=== PATIENT | female | born 1950 | race Caucasian/White ===

== ENCOUNTER 2025-06-05 19:36 | Inpatient (IN) | payer MEDICARE, SELFPAY ==
--- OUTSIDE RECORDS SUMMARY | 2025-06-04 12:34 | XMS_ITS | Encounter Summary ---
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 [facility] MCHC 32.9 29.5 - 34.2 g/dL 06/04/2025 1:59 PM EDT [facility] RDW 14.3 11.8 - 14.4 % 06/04/2025 1:59 PM EDT [facility] Platelets 333 168 - 382 [id number]/L 06/04/2025 1:59 PM EDT [facility] MPV 10.0 9.6 - 12.5 fL 06/04/2025 1:59 PM EDT [facility] NRBC % 0.0 -1.0 - 0.0 % 06/04/2025 1:59 PM EDT [facility] NRBC (absolute) 0.0 [id number]/L 1:59 PM EDT [facility] Immature Granulocytes % 0.2 % 06/04/2025 1:59 PM EDT [facility] Immature Granulocytes (absolute) 0.0 0.0 - 0.1 [id number]/L 06/04/2025 1:59 PM EDT [facility] Seg Neutrophil % 60.7 % 06/04/20 1:59 PM EDT [facility] Seg Neutrophil (absolute) 3.4 1.9 - 6.7 [id number]/L 06/04/2025 1:59 PM EDT [facility] Lymphocyte % 30.2 % 06/04/2025 1:59 PM EDT [facility] Lymphocyte (absolute) 1.7 1.0 - 3.3 [id number]/L 06/04/2025 1:59 PM EDT [facility] Monocyte % 7.5 % 06/04/2025 1:59 PM EDT [facility] Monocyte (absolute) 0.4 0.3 - 0.9 [id number]/L 06/04/2025 1:59 PM EDT [facility] Eosinophil % 0.9 % 06/04/2025 1:59 PM EDT [facility] Eosinophil (absolute) 0.1 0.0 - 0.4 [id number]/L 06/04/2025 1:59 PM EDT [facility] Basophil % 0.5 % 06/04/2025 1:59 PM EDT [facility] Basophil (absolute) 0.0 0.0 - 0.1 [id number]/L 06/04/2025 1:59 PM EDT [facility] 06/04/2025 1:50 PM EDT 06/04/2025 1:56 PM EDT Libby PÉREZ LAB BLOOD ORDERABLES Final R esult [facility] [address] [place] [id number], [facility] [address] [place] [id number] documented in this encounter Visit Diagnoses Diagnosis Suicidal ideation- Primary documented in this encounter Administered Medications Active Administered Medications - up to 3 most recent administrations Medication Order MAR Action Action Date Dose Rate Site polyethylene glycol (MIRALAX) packet 17 g 17 g (1 packet), Oral, Once Daily, First dose on 06/05/25 at 0800, Until Discontinued, Occasional constipation: Stir powder in 4-8 ounces of water, juice, soda, coffee, or tea until dissolved and drink. Given 06/05/2025 7:49 AM EDT 17 g psyllium packet 1 packet 1 packet, Oral, 3 times daily, First dose on Sat06/04/25 at 1600, Until Discontinued, Drink at least 8 oz of water with each dose. Given 06/05/2025 3:14 PM EDT 1 packet Given 06/05/2025 7:49 AM EDT 1 packet Inactive Administered Medications - up to 3 most recent administrations Medication Order MAR Action Action Date Dose Rate Site ibuprofen (MOTRIN) tablet 600 mg 600 mg, Oral, Once, On 06/05/25 at 0045, 1 dose, If ordered PRN for pain control, patient may request to receive this medication even if experiencing higher pain levels. Yes Given 06/05/2025 12:51 AM EDT 600 mg ibuprofen (MOTRIN) tablet 600 mg 600 mg, Oral, Once, On 06/05/25 at 1100, 1 dose, If ordered PRN for pain control, patient may request to receive this medication even if experiencing higher pain levels. Yes Given 06/05/2025 11:06 AM EDT 600 mg LORazepam (ATIVAN) tablet 0.5 mg 0.5 mg, Oral, Once, On Sat06/04/25 at 1330, 1 dose Given 06/04/2025 1:24 PM EDT 0.5 mg LORazepam (ATIVAN) tablet 1 mg 1 mg, Oral, Once, On 06/05/25 at 1100, 1 dose Given 06/05/2025 11:06 AM EDT 1 mg LORazepam (ATIVAN) tablet 1 mg 1 mg, Oral, Once, On 06/05/25 at 1600, 1 dose Given 06/05/2025 4:10 PM EDT 1 mg pantoprazole (PROTONIX) DR tablet 40 mg 40 mg, Oral, Once, On Sat06/04/25 at 1345, 1 dose, Do not crush/split/chew tablet. Given 06/04/2025 2:06 PM EDT 40 mg documented in this encounter Active and Recently Administered Medications Times are shown in EDT. Scheduled Medication Order 06/03/2025 06/04/2025 06/05/2025 ibuprofen (MOTRIN) tablet 600 mg (COMPLETED) 600 mg, Oral, Once, On 06/05/25 at 0045, 1 dose, If ordered PRN for pain control, patient may request to receive this medication even if experiencing higher pain levels. Yes 0051 (Given - Provid er: Mike Christensen RN) ibuprofen (MOTRIN) tablet 600 mg (COMPLETED) 600 mg, Oral, Once, On 06/05/25 at 1100, 1 dose, If ordered PRN for pain control, patient may request to receive this medication even if experiencing higher pain levels. Yes 1106 (Given - Provid er: Tony Ferreira RN) LORazepam (ATIVAN) tablet 0.5 mg (COMPLETED) 0.5 mg, Oral, Once, On Sat06/04/25 at 1330, 1 dose 1324 (Given - Provider: Belkis Olguin RN) LORazepam (ATIVAN) tablet 1 mg (COMPLETED) 1 mg, Oral, Once, On 06/05/25 at 1100, 1 dose 1106 (Given - Provid er: Tony Ferreira RN) LORazepam (ATIVAN) tablet 1 mg (COMPLETED) 1 mg, Oral, Once, On Sat06/05/25 at 1600, 1 dose 1610 (Given - Provid er: Tony Ferreira RN) pantoprazole (PROTONIX) DR tablet 40 mg (COMPLETED) 40 mg, Oral, Once, On Sat06/04/25 at 1345, 1 dose, Do not crush/split/chew tablet. 1406 (Given - Provider: Belkis Olguin RN) polyethylene glycol (MIRALAX) packet 17 g 17 g (1 packet), Oral, Once Daily, First dose on Sat06/05/25 at 0800, Until Discontinued, Occasional constipation: Stir powder in 4-8 ounces of water, juice, soda, coffee, or tea until dissolved and drink. 0749 (Given - Provid er: Tony Ferreira RN) psyllium packet 1 packet 1 packet, Oral, 3 times daily, First dose on Sat06/04/25 at 1600, Until Discontinued, Drink at least 8 oz of water with each dose. 1732 (Not Given - Provider: Alex Lema RN - Reason: Patient/family refused)2100 (Not Given - Provider: Alex Lema RN - Reason: Contraindicated) 0749 (Given - Provider: Tony Ferreira RN)1514 (Given - Provider: Tony Ferreira RN)2200 (Due) documented in this encounter Care Teams [employer] Asset Manager Relationship Specialty Start Date End Date Ammon Villagomez MD [address] [place] [phone] PCP - General Internal Medicine 06/04/25 documented as of this encounter
--- OUTSIDE RECORDS SUMMARY | 2025-06-05 19:45 | XMS_ITS | Clinical Summary ---
Author Organization [facility] Address [address] [place] [address] Care Team Providers Care Advanced Manufacturing Technician Name Role Phone Shania Reyes MD Unavailable Gely Greene MD Primary Care Provider [phone] Allergies Active Allergy Reactions Criticality Noted Date Comments Varenicline Altered Mental Status 02/22/2016 Pregabalin GI Intolerance,Alter ed Mental Status 01/25/2016 Oxycodone-Acetaminophe n GI Intolerance 01/25/2016 DID NOT RELIVE PAIN LIGHTHEADED Medications Multiple Vitamin (MULTIVITAMIN) capsule Take 1 capsule by mouth daily Active calcium carbonate 200 MG capsule Take 250 mg by mouth 2 (two) times a day with meals. Active cholecalciferol (VITAMIN D3) 1000 UNITS tablet Take 1 tablet (1,000 Units total) by mouth daily Active hydrocortisone (CORTEF) 10 MG tablet Take 1 tablet (10 mg total) by mouth daily. 45 tablet 0 6 Active venlafaxine (EFFEXOR-XR) 150 MG extended release capsule Take 1 capsule (150 mg total) by mouth daily 8 Active aspirin 81 MG EC tablet TAKE 1 TABLET EVERY DAY 2 8 Active calcium carbonate-vitam in D3 (CALCIUM 600+D3) 600-400 MG-UNIT tablet Take by mouth daily Active acetaminophen (TYLENOL) 500 MG tablet Take 2 tablets (1,000 mg total) by mouth every 4 (four) hours as needed for mild pain (1-3) or fever Active albuterol sulfate (VENTOLIN HFA) 108 (90 Base) MCG/ACT inhalation aerosol Inhale 1-2 puffs every 6 (six) hours as needed for wheezing or shortness of breath 1 Inhaler 0 Active albuterol sulfate (PROAIR HFA) 108 (90 Base) MCG/ACT inhalation aerosol Inhale 1 puff every 4 (four) hours as needed for wheezing or shortness of breath Active Active Problems Problem Noted Date Diagnosed Date Panic attack 08/28/2023 Fever, unknown origin 11/29/2020 Right leg pain 11/29/2020 Weight gain 03/04/2020 Atypical nevus 09/30/2019 Screening for colon cancer 02/25/2019 History of lymphocytosis 09/21/2018 Chest pain 05/10/2016 Instability of knee joint, right 03/13/2016 Resolved Problems Problem Noted Date Diagnosed Date Resolved Date 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 Encounters Date Type Department Care Team Description 03/09/2025 8:52 AM EDT Anesthesia Event [address] [phone] Sushant Norwood MD 03/09/2025 8:04 AM EDT - 03/09/2025 11:59 PM EDT Hospital Encounter [address] [address] Pravin Giles MD Burgess, Kevin S, CRNA D'Souza, Stanlies M, MD History of colonic polyps Discharge Disposition: Home or Self Care 03/09/2025 Travel 10/29/2024 Procedure Pass [address] [phone] from Last 3 Months Family History Medical History Relation Name Comments Arthritis Mother Asthma Mother Diabetes Mother Heart disease Mother Hypertension Mother Relation Name Status Comments Father Mother Alive Sister Alive Social History Tobacco Use Types Packs/Day Years Used Date Smoking Tobacco: Former Cigarettes Smokeless Tobacco: Never Tobacco Cessation:Counseling Given: Not Answered Alcohol Use Standard Drinks/Week Comments No 0 (1 standard drink = 0.6 oz pur e alcohol) Comments No Sex and Gender Information Value Date Recorded Sex Assigned at Female 05/04/2024 2:59 PM EDT Legal Sex Female 6:38 PM EDT Gender Identity Female 05/04/2024 2:59 PM EDT Sexual Orientation Straight 05/04/2024 2: 59 PM EDT Last Filed Vital Signs Vital Sign Reading Time Taken Comments Blood Pressure 116/73 03/09/2025 9:45 AM EDT Pulse 70 03/09/2025 9:45 AM EDT Temperature 36.5 C (97.7 F) 03/09/2025 8:28 AM EDT Respiratory Rate 18 03/09/2025 9:45 AM EDT Oxygen Saturation 97% 03/09/2025 9:45 AM EDT Inhaled Oxygen Concentration - - Weight 84.4 kg (186 lb) 05/04/2024 4:23 PM EDT Height 160 cm (5' 3 ) 05/04/2024 4:23 PM EDT Body Mass Index 32.95 05/04/2024 4:23 PM EDT Plan of Treatment Health Maintenance Due Date Last Done Comments Annual Physical 1954 DTaP,Tdap,and Td Vaccines (1 - Tdap) 1970 Pneumococcal Vaccines 50+ yrs (1 of 2 - PCV) 1970 CT Colonography 1996 FOBT 1996 Sigmoidoscopy 1996 Zoster Standard Vaccine (1 of 2) 2001 RSV Immunization Patients 60+ years or (1 - Risk 60-74 years 1-dose series) 2011 Bone Density Scan 2016 Breast Cancer Screening 03/11/2020 03/11/2019 COVID-19 Vaccine (1 - season) 2025 Influenza Vaccine (#1) 2025 7, 05/11/2016, 05/27/2015 FIT-DNA 10/16/2027 10/15/2024, 10/15/2024 Cholesterol Screening 10/28/2029 10/28/2024 , 09/06/2023, 03/20/2022, Additional history exists Colorectal Cancer Screening by Colonoscopy 03/08/2030 03/09/2025, 03/17/2019 Colonoscopy 03/09/2030 03/09/2025, 080 12/2024, 03/17/2019 Colorectal Cancer Screening 03/09/2030 Hepatitis C Screening Completed 12/06/2020 HIB Vaccines Aged Out No longer eligi ble based on patient's age to complete this topic Hepatitis A Vaccine Aged Out No longe r eligible based on patient's age to complete this topic Medical Devices Implanted Type Area Commercial Real Estate Lender Device Identifier Shelf Expiration Date Model / Serial / Lot Cement Bone Simplex P - [id number] Implanted:Qty: 2 on 03/13/2016 by Aric Akins MD at [facility] Right: Knee [employer] 07/04/2018 [id number] / / [id number] Cone Tibial Tri 36 31 25 - [id number] Implanted:Qty: 1 on 03/13/2016 by Aric Akins MD at [facility] Right: Knee [employer] 12/03/2018 [id number] / / [id number] Cone Femoral Small Rt 30mm - [id number] Implanted:Qty: 1 on 03/13/2016 by Aric Akins MD at [facility] Right: Knee [employer] 04/04/2020 [id number] / / [id number] Mod Tibial Tray Neutral Sz 3 - [id number] Implanted:Qty: 1 on 03/13/2016 by Aric Akins MD at [facility] Right: Knee [employer] 08/05/2019 [id number] / / [id number] 12 X 80mm Stem Ext Fluted - [id number] Implanted:Qty: 1 on 03/13/2016 by Aric Akins MD at [facility] Right: Knee [employer] 11/03/2019 [id number] / / [id number] Junction Box 5 Deg - [id number] Implanted:Qty: 1 on 03/13/2016 by Aric Akins MD at [facility] Right: Knee [employer] 08/25/2022 [id number] / / [id number] Femoral Component Rt Sz 4 - [id number] - [id number] Implanted:Qty: 1 on 03/13/2016 by Aric Akins MD at [facility] Right: Knee [employer] 05/27/2020 [id number] / / [id number] Extension Stem Flut 14x 80mm - [id number] Implanted:Qty: 1 on 03/13/2016 by Aric Akins MD at [facility] Right: Knee [employer] 06/04/2018 [id number] / / [id number] Insert Ck Tibial Size 3 12mm - [id number] Implanted:Qty: 1 on 03/13/2016 by Aric Akins MD at [facility] Right: Knee [employer] 10/02/2016 [id number] / / [id number] Procedures Procedure Name Priority Date/Time Associated Diagnosis Comments COLONOSCOPY Routine 03/09/2025 9:18 AM EDT History of colonic polyps SURGICAL PATHOLOGY EXAM Routine 03/09/2025 9:13 AM EDT History of colonic polyps LIPID PANEL Routine 10/28/2024 11:06 AM EDT Diabetes mellitus, latent Hyperlipidemia, unspecified hyperlipidemia type 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 Images from the original result were not included. Colonoscopy Report [facility] [employer] [facility] Proceduralist Pravin Giles MD Patient Name: Britt Caldera Date of : 1950 PCP Gely Greene MD Date of Procedure: 03/09/2025 Pre-op Diagnosis History of colonic polyps Post-op Diagnosis Colon polyps Indication This 74 y/o F has History of colonic polyps in 2019. Preprocedure A history and physical has been performed, and patient medication allergies have been reviewed. The patient's tolerance of previous anesthesia has been reviewed. The risks and benefits of the procedure and the sedation options and risks were discussed with the patient. All questions were answered and informed consent obtained. Details of the Procedure The patient underwent monitored anesthesia care, which was administered by an anesthesia professional. The patient's blood pressure, heart rate, level of consciousness, oxygen saturation, respirations, ECG and ETCO2 were monitored throughout the procedure. A digital rectal exam was performed. The scope was introduced through the anus and advanced to the cecum. Retroflexion was performed in the rectum. The quality of bowel preparation was evaluated using the [place] Bowel Preparation Scale with scores of: right colon = 3, transverse colon = 3, left colon = 3. The total BBPS score was 9. Bowel prep was adequate. The patient experienced no blood loss. The procedure was not difficult. The patient tolerated the procedure well. There were no apparent adverse events. Findings Polyp measuring smaller than 5 mm in the mid ascending colon; performed cold forceps biopsy with complete en bloc removal Polyp measuring 5-9 mm in the mid rectum; performed cold snare with complete en bloc removal and retrieved specimen All observed locations appeared normal, including the cecum, hepatic flexure, transverse colon, splenic flexure, descending colon, sigmoid colon, rectosigmoid and rectum. Specimens ID Type Source Tests Collected by Time A : COLD FORCEP BX ASCENDING POLYPECTOMY Tissue Large Intestine, Right/Ascending Colon SURGICAL PATHOLOGY EXAM Pravin Giles MD 03/09/2025 0913 B : COLD SNARE RECTUM POLYPECTOMY Tissue Rectum SURGICAL PATHOLOGY EXAM Pravin Giles MD 03/09/2025 0917 Events Procedure Events Event Event Time ENDO SCOPE IN TIME 03/09/2025 9:06 AM ENDO CECUM REACHED 03/09/2025 9:09 AM ENDO SCOPE OUT TIME 03/09/2025 9:18 AM No case tracking events are documented in the log. Withdrawal time: 9m 35s Impression Polyps (2) Recommendation Repeat colonoscopy in 5 years, due: 03/08/2030 If adenomatous. Pravin Giles MD GI PROCEDURE ORDERABLES Final Result * Surgical Pathology Exam (03/09/2025 9:13 AM EDT) Case Report Surgical Pathology Case: [id number] Authorizing Provider: Pravin Giles MD Collected: 03/09/2025 0913 Ordering Location: [facility] Received: 03/09/2025 1036 - [facility] Pathologist: Kailey Kamara MD Specimens: A) - Large Intestine, Right/Ascending Colon, COLD FORCEP BX ASCENDING POLYPECTOMY B) - Rectum, COLD SNARE RECTUM POLYPECTOMY 03/11/2025 8:43 AM EDT [facility] Final Diagnosis A. ASCENDING COLON POLYPECTOMY: Tubular adenoma, multiple fragments. B. RECTUM POLYPECTOMY: Tubular adenoma, multiple fragments. 03/11/2025 8:43 AM EDT [facility] at 0843 EDT Comment CPT: 68625 x2 03/11/2025 8:43 AM EDT [facility] Reporting Location Diagnosis performed at [facility] 03/11/2025 8:43 AM EDT [facility] Intradepartmental Consultation Case reviewed by Dr. Zach Richardson, who agrees with the above diagnosis. 03/11/2025 8:43 AM EDT [facility] Gross Description A. Received in formalin labeled with the patient's name, initials MB and large intestine, A is one irregular thomas soft tissue fragment measuring 0.3 cm in greatest dimension, entirely submitted in one cassette. B. Received in formalin labeled with the patient's name, initials MB and rectum, B are 3 irregular thomas soft tissue fragments measuring 0.3 cm in greatest dimension, entirely submitted in one cassette. Note: the smallest fragments may not survive processing. Time out of formalin: 12:10 am on 03/10/2025. Gross performed at [facility]. Gross evaluation performed and dictated by: ELISA Damon (ASCP)cm. 03/11/2025 8:43 AM EDT [facility] Embedded Images 8:43 AM EDT [facility] Additional Information This report may contain complex medical terminology and you should discuss this report with the clinician who ordered this test to ensure appropriate understanding of the findings. 03/11/2025 8:43 AM EDT [facility] Tissue Ascending colon structure / Unknown 03/09/2025 9:13 AM EDT 03/09/2025 10:36 AM EDT Tissue specimen (specimen) Rectum structure / Unknown 03/09/2025 9:17 AM EDT 03/09/2025 10:36 AM EDT us Pravin Giles MD PATHOLOGY/CYTOLOGY ORDERABLES Final Result [facility] [address] [place] [id number] * Lipid panel (10/28/2024 11:06 AM EDT) Cholesterol 185 <200 mg/dL 10/28/2024 4:23 PM EDT [facility] Triglycerides 120 <150 mg/dL 10/28/2024 4:23 PM EDT [facility] HDL 69.9 >=60.0 mg/dL 10/28/2024 4:23 PM EDT [facility] LDL Calculated 91 0 - 100 mg/dL 10/28/2024 4:23 PM EDT [facility] Cardiac Risk Factor 2.6 0.0 - 4.4 10/28/2024 4:23 PM EDT [facility] Blood Venipuncture / Unknown 10/28/2024 11:06 AM EDT 10/28/2024 11:06 AM EDT Narrative [facility] - 10/28/2024 4:23 PM EDT Cardiac Risk Factor: Males Females 2x Average Risk 9.6 7.1 3x Average Risk 23.4 11.0 us Gely Greene MD LAB BLOOD ORDERABLES Final Re sult [facility] [address] [place] [address] * (ABNORMAL) Acute Hepatitis Panel (12/06/2020 10:45 AM EDT) Hep A Total Ab Reactive(A) Nonreactive 12/06/2020 7:46 PM EDT [facility] Hep B Core Total Ab Nonreactive Nonreactive 12/06/2020 7:46 PM EDT [facility] HCV Ab Nonreactive Nonreactive 12/06/2020 7:46 PM EDT [facility] Hepatitis B Surface Ag Nonreactive Nonreactive 12/06/2020 7:46 PM EDT [facility] Blood specimen (specimen) Venipuncture / Unknown 12/06/2020 10:45 AM EDT 12/06/2020 1:48 PM EDT us Cristy Evans MD LAB BLOOD ORDERABLES F inal Result [facility] [address] [place] [address] * TAMAR breast pepper screening bilateral (03/11/2019 4:54 PM EDT) Anatomical Region Laterality Modality Breast Bilateral Mammography 03/13/2019 1:02 PM EDT Impressions 03/13/2019 1:02 PM EDT IMPRESSION: No mammographic evidence of malignancy. Annual screening mammography is recommended. Breast Density: Heterogeneously dense BI-RADS description: BI-RADS 1 - Negative Recommendation: Routine Screening Mammography The patient's information was entered into a reminder system with a target due date for the next mammogram. Narrative 03/13/2019 1:02 PM EDT HISTORY: Screening Comparison: August 2016, February 2015 and October 2013 This examination was reviewed with the aid of the R2 Computer-Aided Detection. Full Field Digital Breast Tomosynthesis examination was performed with 2-D and 3-D acquisitions. The breast tissue is heterogeneously dense, reducing the sensitivity of mammography. There is no evidence of dominant mass, clustered microcalcifications or secondary signs of malignancy. Procedure Note Gregg Quinteros MD - 03/13/2019 HISTORY: Screening Comparison: August 2016, February 2015 and October 2013 This examination was reviewed with the aid of the R2 Computer-AidedDetection. Full Field Digital Breast Tomosynthesis examination wasperformed with 2-D and 3-D acquisitions. The breast tissue is heterogeneously dense, reducing the sensitivity ofmammography. There is no evidence of dominant mass, clusteredmicrocalcifications or secondary signs of malignancy. IMPRESSION: No mammographic evidence of malignancy. Annual screeningmammography is recommended. Breast Density: Heterogeneously dense BI-RADS description: BI-RADS 1 - Negative Recommendation: Routine Screening Mammography The patient's information was entered into a reminder system with a targetdue date for the next mammogram. Ammon Villagomez MD IMG MAMMOGRAPHY ORDERABLES F inal Result from Last 3 Months or Most Recently Relevant to Health Maintenance Insurance [employer] HMO Advance Directives For more information, please contact: [phone] * Full Code (Latest Code Status on File) Date Activated Date Inactivated Comments 05/10/2016 3:21 PM 05/12/2016 7:32 PM * Full Code Date Activated Date Inactivated Comments 03/13/2016 11:47 AM 03/16/2016 6:00 PM Care Teams Advanced Manufacturing Technician Relationship Specialty Start Date End Date Gley Greene MD [address] [place] [id number] PCP - General Internal Medicine 07/10/22 Shania Reyes MD [address] [place] [address] [place] [address] Physician Hematology and Oncology 08/19/18
--- OUTSIDE RECORDS SUMMARY | 2025-06-05 19:45 | XMS_ITS ---
Author Name [facility] Organization Unknown Encounters Encounter Type Encounter Reason Primary Diagnosis Location Date Emergency Suicidal ideation Suicidal ideation [facility] 06/04/2025 Care Team Organization Name Specialty Phone Email Start Date End Da te [facility] 06/04/2025 [facility] 06/04/2025 [facility] 06/04/2025 [facility] 1
--- OUTSIDE RECORDS SUMMARY | 2025-06-05 19:45 | XMS_ITS | Encounter Summary ---
Author Organization [facility] Address [address] [place] [address] Care Team Providers Care Communications Specialist Name Role Phone Ammon Villagomez MD Primary Care Provider Colin Hoskins MD Unavailable [phone] Shania Reyes MD Unavailable Gely Greene MD Primary Care Provider Encounter Details Date Type Department Care Team (Late st Contact Info) Description 11/25/2017 Procedure Pass [facility] - [address] [address] Social History Tobacco Use Types Packs/Day Years Used Date Smoking Tobacco: Every Day Cigarettes Smokeless Tobacco: Never Alcohol Use Standard Drinks/Week Comments No 0 (1 standard drink = 0.6 oz pur e alcohol) Comments No Sex and Gender Information Value Date Recorded Sex Assigned at Female 05/04/2024 2:59 PM EDT Legal Sex Female 6:38 PM EDT Gender Identity Female 05/04/2024 2:59 PM EDT Sexual Orientation Straight 05/04/2024 2: 59 PM EDT documented as of this encounter Last Filed Vital Signs Vital Sign Reading Time Taken Comments Blood Pressure - - Pulse - - Temperature - - Respiratory Rate - - Oxygen Saturation - - Inhaled Oxygen Concentration - - Weight 86.2 kg (190 lb) 11/25/2017 9:56 AM EDT Height 160 cm (5' 3 ) 11/25/2017 9:56 AM EDT Body Mass Index 33.66 11/25/2017 9:56 AM EDT documented in this encounter Plan of Treatment Not on file documented as of this encounter Visit Diagnoses Not on filedocumented in this encounter Additional Health Concerns Infection Onset Date Last Indicated Resolved Time PUI COVID 05/24/2020 05/24/2020 05/25/2020 11:4 6 PM EDT PUI COVID 06/24/2020 06/24/2020 06/25/2020 11:4 7 PM EST PUI COVID 08/28/2023 08/28/2023 08/28/2023 5:43 PM EST documented as of this encounter Care Teams Communications Specialist Relationship Specialty Start Date End Date Ammon Villagomez MD [address] [place] [address] PCP - General 04/23/14 07/09/22 Colin Hoskins MD [address] [place] [address] PCP - Hematology/Oncology Hematology and Oncology 11/18/17 09/11/18 Gely Greene MD [address] [place] [address] PCP - General Internal Medicine 07/10/22 Shania Reyes MD [address] [place] [address] [place] [address] Physician Hematology and Oncology 08/19/18 documented as of this encounter
--- OUTSIDE RECORDS SUMMARY | 2025-06-05 19:45 | XMS_ITS | Encounter Summary ---
Author Organization [facility] Address [address] [place] [address] Care Team Providers Care Account Manager Relief Name Role Phone Ammon Villagomez MD Primary Care Provider Shania Reyes MD Unavailable Gely Greene MD Primary Care Provider [phone] Encounter Details Date Type Department Care Team (Late st Contact Info) Description 03/02/2019 Lab Requisition [address] [address] Ammon Villagomez MD [address] [place] [address] Other amnesia; Other fatigue Social History Tobacco Use Types Packs/Day Years [...] PM EDT documented as of this encounter Plan of Treatment Not on file documented as of this encounter Procedures Procedure Name Priority Date/Time Associated Diagnosis Comments TASHI RODRÍGUEZ PROFILE Routine 03/02/2019 8:32 AM EDT Other amnesia Other fatigue VITAMIN B12 Routine 03/02/2019 8:32 AM EDT Other amnesia Other fatigue TREPONEMA PALLIDUM (SYPHILIS) ANTIBODY Routine 03/02/2019 8:32 AM EDT Other amnesia Other fatigue VITAMIN D 1,25 DIHYDROXY Routine 03/02/2019 8:32 AM EDT Other amnesia Other fatigue TSH WITH REFLEX TO FREE T4 Routine 03/02/2019 8:32 AM EDT Other amnesia Other fatigue FOLATE Routine 03/02/2019 8:32 AM EDT Other amnesia Other fatigue VITAMIN B12 Routine 03/02/2019 8:32 AM EDT Other amnesia Other fatigue documented in this encounter Results * (ABNORMAL) Folate (03/02/2019 8:32 AM EDT) Folate >20.0(H) 3.4 - 20.0 ng/mL 03/02/2019 3:03 PM EDT [facility] Blood specimen (specimen) Non-SHG Collection / Unknown 03/02/2019 8:32 AM EDT 03/02/2019 1:19 PM EDT Ammon Villagomez MD LAB BLOOD ORDERABLES Final R esult [facility] [address] [place], [place] * (ABNORMAL) Vitamin B12 (03/02/2019 8:32 AM EDT) Vitamin B12 1,482(H) 232-1,245 pg/mL 03/02/2019 2:20 PM EDT [facility] Blood specimen (specimen) Non-SHG Collection / Unknown 03/02/2019 8:32 AM EDT 03/02/2019 1:19 PM EDT Ammon Villagomez MD LAB BLOOD ORDERABLES Final R esult [facility] [address] [place] [address] * (ABNORMAL) Vitamin D 1,25 Dihydroxy (03/02/2019 8:32 AM EDT) Vitamin D2, 1,25(OH)2 < 8 pg/mL 03/06/2019 7:33 AM EDT [facility] Comment: Vitamin D3, 1,25(OH) indicates both endogenous production and supplementation. Vitamin D2, 1,25(OH)2 is an indicator of exogenous sources, such as diet or supplementation. Interpretation and therapy are based on measurement of Vitamin D, 1,25 (OH)2, Total. This test was developed and its analytical performance characteristics have been determined by [facility]. It has not been cleared or approved by the US Food and Drug Administration. This assay has been validated pursuant to the CLIA regulations and is used for clinical purposes. Vitamin D3, 1,25(OH)2 76 pg/mL 03/06/2019 7:33 AM EDT [facility] Vitamin D,1,25(OH)2,Tota l 76(H) 18 - 72 pg/mL 03/06/2019 7:33 AM EDT [facility] Blood specimen (specimen) Non-SHG Collection / Unknown 03/02/2019 8:32 AM EDT 03/02/2019 1:19 PM EDT Narrative [facility] - 03/06/2019 7:33 AM EDT Performing Organization Information: Site ID: [id number] Name: [facility] Address: [id number] [place] [id number] Director: Bigg Cordova MD, PhD. Ammon Villagomez MD LAB BLOOD ORDERABLES Final R esult [facility] [address] [place] [address] * (ABNORMAL) Tashi-Rodríguez Profile (03/02/2019 8:32 AM EDT) Tashi-Rodríguez Nuclear Antigen Positive(A) Negative 03/02/2019 3:04 PM EDT [facility] Tashi-Rodríguez Early Antigen Negative Negative 03/02/2019 3:04 PM EDT [facility] EBV VCA IgG Positive(A) Negative 03/02/2019 3:04 PM EDT [facility] EBV VCA IgM Negative Negative 03/02/2019 3:04 PM EDT [facility] Blood specimen (specimen) Non-SHG Collection / Unknown 03/02/2019 8:32 AM EDT 03/02/2019 1:19 PM EDT Narrative [facility] - 03/02/2019 3:04 PM EDT EBV NucAG EBV Early AG VCA IgG VCA IgM No Infection NEG NEG NEG NEG Acute/Recent Infection NEG NEG/POS POS POS Recent/Possible POS POS POS NEG Reactivation Past Infection POS NEG POS NEG Ammon Villagomez MD LAB BLOOD ORDERABLES Final R esult Performing Organization Address [facility] Co de Phone Number [facility] [address] [place] [address] * Treponema pallidum (syphilis) antibody (03/02/2019 8:32 AM EDT) T. pallidum Antibody Negative Negative 03/02/2019 3:04 PM EDT [facility] Blood specimen (specimen) Non-SHG Collection / Unknown 03/02/2019 8:32 AM EDT 03/02/2019 1:19 PM EDT Narrative [facility] - 03/02/2019 3:04 PM EDT INTERPRETATION: No serologic evidence of syphilis. Incubating or early syphilis cannot be excluded. NOTE: HIV-infected individuals may have delayed seroreactivity or negative serology. NOTE: All positive (reactive) samples are sent to the [facility] for confirmation. Ammon Villagomez MD LAB BLOOD ORDERABLES Final R esult Performing Organization Address [facility] Co de Phone Number [facility] [address] [place] [address] * TSH with reflex to Free T4 (03/02/2019 8:32 AM EDT) TSH 0.407 0.350 - 5.500 uIU/mL 03/02/2019 2:20 PM EDT [facility] Blood specimen (specimen) Non-SHG Collection / Unknown 03/02/2019 8:32 AM EDT 03/02/2019 1:19 PM EDT us Ammon Villagomez MD LAB BLOOD ORDERABLES Final R esult [facility] [address] [place], [place] documented in this encounter Visit Diagnoses Diagnosis Other amnesia Other fatigue documented in this encounter Additional Health Concerns Infection Onset Date Last Indicated Resolved Time PUI COVID 05/24/2020 05/24/2020 05/25/2020 11:4 6 PM EDT PUI COVID 06/24/2020 06/24/2020 06/25/2020 11:4 7 PM EST PUI COVID 08/28/2023 08/28/2023 08/28/2023 5:43 PM EST documented as of this encounter Care Teams Account Manager Relief Relationship Specialty Start Date End Date Ammon Villagomez MD [address] [place] [address] PCP - General 04/23/14 07/09/22 Gely Greene MD [address] [facility] [address] PCP - General Internal Medicine 07/10/22 Shania Reyes MD [address] [place] [address] - [place] [address] Physician Hematology and Oncology 08/19/18 documented as of this encounter
--- OUTSIDE RECORDS SUMMARY | 2025-06-05 19:45 | XMS_ITS | Clinical Summary ---
Author Organization [facility] Address [address] [place] [address] Phone Care Team Providers Care Director Of Finance Name Role Phone Ammon Villagomez MD Primary Care Provider Shania Reyes MD Unavailable [phone] Medications calcium carbonate-vitam in D3 200 mg-10 mcg (400 unit) Cap Take 250 mg by mouth 2 (two) times a day with meals. Active multivitamins capsule Take 1 capsule by mouth daily. Active acetaminophen (TYLENOL) 500 MG tablet Take 1,000 mg by mouth. Active albuterol (PROAIR HFA) 90 mcg/actuation inhaler Inhale 2 puffs into the lungs as needed. 05/24/2020 Active ARIPiprazole (ABILIFY) 2 MG tablet Take 2 mg by mouth daily. Active aspirin 81 mg Cap 81 mg. Active calcium-magnesi um-zinc 333-133-5 mg Tab Active cholecalciferol (VITAMIN D3) 25 MCG (1,000 unit) tablet Take 1,000 Units by mouth daily. Active colchicine (MITIGARE) 0.6 mg capsule Take 0.6 mg by mouth 2 (two) times a day. 01/25/2021 Active hydrocortisone (CORTEF) 10 MG tablet 1 tablet. Active ipratropium-alb uteroL (DUONEB) 0.5-3 mg (2.5 mg base)/3 mL nebulizer solution 3 ml Active metoprolol succinate 25 mg CSpX Active ID-pantoprazole ([id number]) [address] tablet Acti ve ID-venlafaxine ER ([id number]) 150 mg capsule Activ e Social History Tobacco Use Types Packs/Day Years Used Date Smoking Tobacco: Never Assessed Education Answer Date Recorded Are you interested in more education? Not on herson e 12/01/2022 Are you concerned about learning? Not on file 12/01/2022 No 12/01/2022 No 12/01/2022 Digital Access Answer Date Recorded No 12/29/2022 No 12/29/2022 No 12/29/2022 Reliable internet access at home? Not on file 12/29/2022 Device with a working camera? Not on file Comments Unknown Sex and Gender Information Value Date Recorded Sex Assigned at Not on file Legal Sex Female 3:46 PM EST Gender Identity Not on file Sexual Orientation Not on file Plan of Treatment Health Maintenance Due Date Last Done Comments Adult Td,Tdap Booster 1951 DEPRESSION SCREENING 1963 SMOKING Hx and SMOKELESS TOBACCO SCREENING 1964 HEPATITIS C SCREENING 1969 COLOGUARD 1996 COLONOSCOPY 1996 COLORECTAL CANCER SCREENING 1996 FIT TEST 1996 FOBT 1996 SIGMOIDOSCOPY 1996 VIRTUAL COLONOSCOPY 1996 PNEUMOCOCCAL VACCINES (50+ years) (1 of 1 - PCV) 2001 ZOSTER VACCINES (1 of 2) 2001 OSTEOPOROSIS SCREENING INITI AL (ONE-TIME) 2016 MAMMOGRAM 03/11/2021 03/11/2019 INFLUENZA VACCINE (#1) 2025 COVID-19 VACCINE (1 - 2024-2 6 season) 2025 LIPID PANEL 11/01/2025 11/01/2020, 09/06/2020, 02/09/2020 RSV VACCINE (1 - 1-dose 75+ series) 2026 HEPATITIS A VACCINES Aged Out No long er eligible based on patient's age to complete this topic HIB VACCINES Aged Out No longer eligi ble based on patient's age to complete this topic MENINGOCOCCAL VACCINES (ACWY) Aged Out No longer eligible based on patient's age to complete this topic MENINGOCOCCAL VACCINES (B) Aged Out N o longer eligible based on patient's age to complete this topic Medical Devices Not on file Insurance MEDICARE REPLACEMENT MEDICARE REPLACEMENT Member Subscriber Plan / Payer (Ef fective 2020-Present) Name:Allie Caldera Relation to Subscriber:Self Name:Allie Caldera Payer ID:[id number] (NAIC) Type:Medicare Address: [place] [id number] MEDICARE REPLACEMENT MEDICARE REPLACEMENT MEDICARE REPLACEMENT Member Subscriber Plan / Payer (Ef fective 2020-Present) Name:Allie Caldera Relation to Subscriber:Self Name:Allie Caldera Payer ID:[id number] (NAIC) Type:Medicare Address: [place] [id number] MEDICARE REPLACEMENT MEDICARE REPLACEMENT Member Subscriber Plan / Payer (Ef fective 2020-Present) Name:CalderaAllie R Relation to Subscriber:Self Name:Allie Caldera Payer ID:[id number] (NAIC) Type:Medicare Address: [place] [id number] MEDICARE REPLACEMENT Member Subscriber Plan / Payer (Ef fective 2020-Present) Name:Allie Caldera R Relation to Subscriber:Self Name:Allie Caldera Payer ID:[id number] (NAIC) Type:Medicare Address: [place] [id number] MEDICARE REPLACEMENT Member Subscriber Plan / Payer (Ef fective 2020-Present) Name:Allie Caldera R Relation to Subscriber:Self Name:Allie Caldera Payer ID:[id number] (NAIC) Type:Medicare Address: [place] [id number] Care Teams Director Of Finance Relationship Specialty Start Date End Date Ammon Villagomez MD [address] [place] [address] [place] [address] [email or web address] PCP - General Internal Medicine 06/21/21 Shania Reyes MD [address] [place] [address] [place] [address] Internal Medicine 06/21/21 Additional Source Comments The information contained in this document represents components of the legal health record. It is not the complete legal health record.[facility]
--- OUTSIDE RECORDS SUMMARY | 2025-06-05 19:45 | XMS_ITS | Encounter Summary ---
Author Organization [facility] Address [address] [place] [address] Care Team Providers Care Telephone Appointment Clerk Name Role Phone Ammon Villagomez MD Primary Care Provider Colin Hoskins MD Unavailable [phone] Shania Reyes MD Unavailable Gely Greene MD Primary Care Provider [phone] Encounter Details Date Type Department Care Team (Late st Contact Info) Description 03/24/2016 Lab Requisition [address] [address] Gely Greene MD [address] [place] [id number] Encounter for other specified special examinations Social History Tobacco Use Types Packs/Day Years Used Date Smoking Tobacco: Every Day Cigarettes Alcohol Use Standard Drinks/Week Comments No 0 [...] documented as of this encounter Visit Diagnoses Diagnosis Encounter for other specified special examinations documented in this encounter Additional Health Concerns Infection Onset Date Last Indicated Resolved Time 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 KT; 03/30/2015 03/30/2015 05/11/2016 6:55 AM E DT PUI COVID 05/24/2020 05/24/2020 05/25/2020 11:4 6 PM EDT PUI COVID 06/24/2020 06/24/2020 06/25/2020 11:4 7 PM EST PUI COVID 08/28/2023 08/28/2023 08/28/2023 5:43 PM EST documented as of this encounter Care Teams Telephone Appointment Clerk Relationship Specialty Start Date End Date Ammon Villagomez MD [address] [place] [address] PCP - General 04/23/14 07/09/22 Colin Hoskins MD [address] [place] [address] PCP - Hematology/Oncology Hematology and Oncology 11/18/17 09/11/18 Gely Greene MD [address] [place] [address] PCP - General Internal Medicine 07/10/22 Shania Reyes MD [address] [place] [address] [place] [address] Physician Hematology and Oncology 08/19/18 documented as of this encounter
--- OUTSIDE RECORDS SUMMARY | 2025-06-05 19:45 | XMS_ITS | Encounter Summary ---
Author Organization [facility] Address [address] [place] [address] Care Team Providers Care Hvac Journeyman Name Role Phone Ammon Villagomez MD Primary Care Provider Shania Reyes MD Unavailable Gely Greene MD Primary Care Provider [phone] Reason for Referral * Diagnostic Imaging (Routine) - Closed Specialty Diagnoses / Procedures Referred By Contac t Referred To Contact Radiology Diagnoses COPD (chronic obstructive pulmonary disease) (HCC) Procedures X-ray chest 2 views Gely Greene MD [address] [place], [place] Phone: tel: fax: Referral ID Status Reason Start Date Expiration Date Visits Re quested Visits Authorized [id number] Closed 07/03/2021 07/03/2023 1 1 Encounter Details Date Type Department Care Team (Late st Contact Info) Description 07/03/2021 Ancillary Orders [facility] - [address] [address] Gely Greene MD [address] [place] [address] COPD (chronic obstructive pulmonary disease) (HCC) Social History Tobacco Use Types Packs/Day Years Used Date Smoking Tobacco: Every Day Cigarettes Smokeless Tobacco: Never Comments:smokes about 3 cigg s a day Alcohol Use Standard Drinks/Week Comments No 0 [...] on file documented as of this encounter Results * X-ray chest 2 views (07/03/2021 11:33 AM EST) Anatomical Region Laterality Modality Chest, Ortho Chest Digital Radio graphy 07/03/2021 3:28 PM EST Impressions 07/03/2021 3:28 PM EST IMPRESSION: Normal examination. Narrative 07/03/2021 3:28 PM EST History: Shortness of breath with exertion. FINDINGS: Comparison is made to November 08, 2020 and June 24, 2020. Two views of the chest demonstrate no significant abnormalities of the heart, lungs or visualized bony structures. Procedure Note Gregg Quinteros MD - 07/03/2021 History: Shortness of breath with exertion. FINDINGS: Comparison is made to November 08, 2020 and June 24, 2020. Two views of the chest demonstrate no significant abnormalities of theheart, lungs or visualized bony structures. IMPRESSION: Normal examination. us Gely Greene MD IMG DIAGNOSTIC IMAGING ORDERA BLES Final Result documented in this encounter Visit Diagnoses Diagnosis COPD (chronic obstructive pulmonary disease) (HCC) Chronic airway obstruction, not elsewhere classified COPD (chronic obstructive pulmonary disease) (HCC) Chronic airway obstruction, not elsewhere classified documented in this encounter Additional Health Concerns Infection Onset Date Last Indicated Resolved Time PUI COVID 08/28/2023 08/28/2023 08/28/2023 5:43 PM EST documented as of this encounter Care Teams Hvac Journeyman Relationship Specialty Start Date End Date Ammon Villagomez MD [address] [place] [address] PCP - General 04/23/14 07/09/22 Gely Greene MD [address] [place] [address] [place] [address] PCP - General Internal Medicine 07/10/22 Shania Reyes MD [address] [place] [address] [place] [address] Physician Hematology and Oncology 08/19/18 documented as of this encounter
--- OUTSIDE RECORDS SUMMARY | 2025-06-05 19:45 | XMS_ITS | Encounter Summary ---
Author Organization [facility] Address [address] [place] [address] Care Team Providers Care Tile Setter Name Role Phone Ammon Villagomez MD Primary Care Provider [phone] Colin Hoskins MD Unavailable [phone] Shania Reyes MD Unavailable Gely Greene MD Primary Care Provider Reason for Referral * Diagnostic (Routine) - Closed Specialty Diagnoses / Procedures Referred By Contac t Referred To Contact Cardiology Diagnoses Sinus tachycardia seen on cardiac technician Procedures Cardiac echo complete Ammon Villagomez MD [address] [place] [address] Phone: tel: fax: Referral ID Status Reason Start Date Expiration Date Visits Re quested Visits Authorized [id number] Closed 10/28/2017 10/28/2018 1 1 Encounter Details Date Type Department Care Team (Late st Contact Info) Description 10/28/2017 Ancillary Orders [facility] - [address] [address] Ammon Villagomez MD [address] [place] [id number] Sinus tachycardia seen on cardiac technician Social History Tobacco Use Types Packs/Day Years [...] documented as of this encounter Results * CARDIAC ECHO COMPLETE (11/11/2017 3:40 PM EDT) LVIDD 3.79 3.5 - 6.0 cm [facility] IVS 0.81 0.6 - 1.1 cm [facility] PW 0.85 0.6 - 1.1 cm [facility] LVIDS 2.60 2.1 - 4.0 cm [facility] FS 31.40 28 - 44 % [facility] IVC Proximal 1.84 cm [facility] LA Volume 46.99 mL [facility] Sinus Diameter 2.88 cm [facility] Prox Asc Aorta 2.68 cm [facility] LA Size 3.00 cm [facility] Velocity Ratio (DI) 0.88 [facility] LVOT Pk Grad 5.37 mmHg [facility] PV Pk Grad 3.14 mmHg [facility] E/A Ratio 0.83 [facility] TDI e' 0.11 m/s [facility] MV Decel Time 135.88 msec [facility] LVOT Pk Janusz 1.16 m/s [facility] AV Pk Janusz 1.32 m/s [facility] AV Pk Grad 6.96 mmHg [facility] PASP 22.00 mmHg [facility] MV Pk E Janusz 0.52 m/s [facility] TR max janusz - rest 2.22 m/s [facility] MV Pk A Janusz 0.63 m/s [facility] LA Vol Ind 24.99 mL/m2 [facility] BSA 1.88 m2 [facility] RA Area 12.70 cm2 [facility] PV pk janusz 0.89 m/s [facility] Est. RAP 3.00 mmHg [facility] RV AP4 Base 3.50 cm [facility] RV AP4 Mid 1.40 cm [facility] TAPSE 2.10 cm [facility] RV S' Janusz 0.11 m/s [facility] E/E' Ratio 4.57 [facility] Sinus Diameter - Index 1.53 cm/m2 [facility] Prox Asc Aorta - Index 1.43 cm/m2 [facility] TR Pk Grad 19.00 mmHg [facility] EF 60 % [facility] Anatomical Region Laterality Modality Heart (Echo) Ultrasound Narrative 11/11/2017 6:16 PM EDT Left Ventricle: Normal cavity size and wall thickness. Normal (60-65%) ejection fraction. No regional wall motion abnormalities noted. Normal diastolic function. Right Ventricle: Normal cavity size and systolic function. Aortic Valve: The valve appears trileaflet and has focal thickening. No regurgitation noted. No stenosis noted. Mitral Valve: Non-specific thickening. No regurgitation noted. No stenosis noted. Tricuspid Valve: Normal tricuspid valve structure. Trace regurgitation noted. Estimated pulmonary artery pressure is normal. Aorta: Normal aortic root and proximal ascending aorta size. Pericardium: No pericardial effusion. Left Ventricle Normal cavity size and wall thickness. Normal (60-65%) ejection fraction. No regional wall motion abnormalities noted. Normal diastolic function. Normal left atrial pressure suspected. Right Ventricle Normal cavity size and systolic function. Left Atrium Normal cavity size. No atrial septal defect or shunt flow is demonstrated by color flow Doppler. Right Atrium Normal cavity size. IVC/SVC Size and degree of collapse consistent with normal estimated right atrial pressure (3 mm Hg). Mitral Valve Non-specific thickening. No regurgitation noted. No stenosis noted. Tricuspid Valve Normal tricuspid valve structure. Trace regurgitation noted. Estimated pulmonary artery pressure is normal. No stenosis noted. Aortic Valve The valve appears trileaflet and has focal thickening. No regurgitation noted. No stenosis noted. Pulmonic Valve Normal valve structure. Trace regurgitation noted. No stenosis noted. Pericardium No pericardial effusion. Aorta Normal aortic root and proximal ascending aorta size. General Study Information Image quality: Good. Cardiac rhythm observed: Sinus rhythm. Wall Scoring Score Index: 1.000 Percent Normal: 100.0% The left ventricular wall motion is normal. us Ammon Villagomez MD CV ECHO ORDERABLES Final Res ult documented in this encounter Visit Diagnoses Diagnosis Sinus tachycardia seen on cardiac technician Sinus tachycardia seen on cardiac technician documented in this encounter Additional Health Concerns Infection Onset Date Last Indicated Resolved Time PUI COVID 05/24/2020 05/24/2020 05/25/2020 11:4 6 PM EDT PUI COVID 06/24/2020 06/24/2020 06/25/2020 11:4 7 PM EST PUI COVID 08/28/2023 08/28/2023 08/28/2023 5:43 PM EST documented as of this encounter Care Teams Tile Setter Relationship Specialty Start Date End Date Ammon Villagomez MD [address] [place] [address] PCP - General 04/23/14 07/09/22 Colin Hoskins MD [address] [place] [address] PCP - Hematology/Oncology Hematology and Oncology 11/18/17 09/11/18 Gely Greene MD [address] [place] [address] [address] PCP - General Internal Medicine 07/10/22 Shania Reyes MD [address] [place] [address] [place] [address] Physician Hematology and Oncology 08/19/18 documented as of this encounter
--- OUTSIDE RECORDS SUMMARY | 2025-06-05 19:45 | XMS_ITS | Encounter Summary ---
Author Organization [facility] Address [address] [place] [address] Care Team Providers Care Information Systems Analyst Name Role Phone Ammon Villagomez MD Primary Care Provider Colin Hoskins MD Unavailable [phone] Shania Reyes MD Unavailable Gely Greene MD Primary Care Provider Encounter Details Date Type Department Care Team (Late st Contact Info) Description 03/20/2016 Lab Requisition [address] [address] Eran Wynne MD [address] [place], [place] [phone] Encounter for other specified special examinations Social [...] 2:59 PM EDT Sexual Orientation Straight 05/04/2024 2 :59 PM EDT documented as of this encounter Plan of Treatment Not on file documented as of this encounter Procedures Procedure Name Priority Date/Time Associated Diagnosis Comments IRON AND TIBC Routine 03/20/2016 6:00 AM EDT Encounter for other specified special examinations RETICULOCYTES Routine 03/20/2016 6:00 AM EDT Encounter for other specified special examinations CBC AND AUTO DIFFERENTIAL Routine 03/20/2016 6:00 AM EDT Encounter for other specified special examinations FERRITIN Routine 03/20/2016 6:00 AM EDT Encounter for other specified special examinations documented in this encounter Results * (ABNORMAL) CBC and Auto Differential (03/20/2016 6:00 AM EDT) WBC 7.4 4.8 - 11.2 10*3/ L 03/20/2016 11:38 AM EDT [facility] RBC 3.31(L) 3.60 - 5.40 10*6/ L 03/20/2016 11:38 AM EDT [facility] HGB 10.0(L) 12.0 - 15.8 g/dL 03/20/2016 11:38 AM EDT [facility] HCT 30.2(L) 36.0 - 48.0 % 03/20/2016 11:38 AM EDT [facility] MCV 91.3 82.0 - 98.0 fL 03/20/2016 11:38 AM EDT [facility] MCH 30.2 27.0 - 35.0 pg 03/20/2016 11:38 AM EDT [facility] MCHC 33.1 32.0 - 37.0 g/dL 03/20/2016 11:38 AM EDT [facility] RDW 14.2 9.0 - 17.9 % 03/20/2016 11:38 AM EDT [facility] PLT 322 150 - 400 10*3/ L 03/20/2016 11:38 AM EDT [facility] MPV 8.4 7.0 - 14.0 fL 03/20/2016 11:38 AM EDT [facility] Neut % 53.3 45.0 - 85.0 % 03/20/2016 11:38 AM EDT [facility] Lymph % 36.6 15.0 - 45.0 % 03/20/2016 11:38 AM EDT [facility] [place] % 6.3 0.0 - 12.0 % 03/20/2016 11:38 AM EDT [facility] Eos % 2.9 0.0 - 7.0 % 03/20/2016 11:38 AM EDT [facility] Baso % 0.9 0.0 - 3.0 % 03/20/2016 11:38 AM EDT [facility] Neut # 3.9 10*3/ L 03/20/2016 11:38 AM EDT [facility] NRBC% 0 0 /100 WBC /100 WBC 03/20/2016 11:38 AM EDT [facility] Blood specimen (specimen) Venipuncture / Unknown 03/20/2016 6:00 AM EDT 03/20/2016 8:04 AM EDT Narrative [facility] - 03/20/2016 11:38 AM EDT This is an appended report. These results have been appended to a previously verified report. us Eran Wynne MD LAB BLOOD ORDERABLES Final Result [facility] [address] [place] [id number] * (ABNORMAL) Reticulocytes (03/20/2016 6:00 AM EDT) Retic Ct Pct 2.6(H) 0.2 - 1.6 % 03/20/2016 8:35 AM EDT [facility] Blood specimen (specimen) Venipuncture / Unknown 03/20/2016 6:00 AM EDT 03/20/2016 8:04 AM EDT us Eran Wynne MD LAB BLOOD ORDERABLES Final Result Performing Organization Address City/[facility]/ZIP Co de Phone Number [facility] [address] [place] [phone] * Ferritin (03/20/2016 6:00 AM EDT) Ferritin 165.7 10.0 - 290.0 ng/mL 03/20/2016 9:09 AM EDT [facility] Blood specimen (specimen) Venipuncture / Unknown 03/20/2016 6:00 AM EDT 03/20/2016 8:04 AM EDT us Eran Wynne MD LAB BLOOD ORDERABLES Final Result Performing Organization Address [facility]/State/ZIP Co de Phone Number [facility] [address] [place] [address] * (ABNORMAL) Iron and TIBC (03/20/2016 6:00 AM EDT) Iron 28(L) 30 - 160 ug/dL 03/20/2016 9:25 AM EDT [facility] UIBC 248 110 - 370 ug/dL 03/20/2016 9:25 AM EDT [facility] TIBC 276 228 - 428 ug/dL 03/20/2016 9:25 AM EDT [facility] Iron Saturation 10(L) 20 - 50 % 03/20/2016 9:25 AM EDT [facility] Blood specimen (specimen) Venipuncture / Unknown 03/20/2016 6:00 AM EDT 03/20/2016 8:04 AM EDT us Eran Wynne MD LAB BLOOD ORDERABLES Final Result Performing Organization Address [facility]/State/ZIP Co de Phone Number [facility] [address] [place] [address] documented in this encounter Visit Diagnoses Diagnosis Encounter for [...] documented as of this encounter Care Teams Information Systems Analyst Relationship Specialty Start Date End Date Ammon Villagomez MD [address] [place] [address] PCP - General 04/23/14 07/09/22 Colin Hoskins MD [address] [place] [address] PCP - Hematology/Oncology Hematology and Oncology 11/18/17 09/11/18 Gely Greene MD [address] [place] [address] [place] [address] PCP - General Internal Medicine 07/10/22 Shania Reyes MD [address] [place] [address] [place] [address] Physician Hematology and Oncology 08/19/18 documented as of this encounter
--- OUTSIDE RECORDS SUMMARY | 2025-06-05 19:45 | XMS_ITS | Encounter Summary ---
Author Organization [facility] Address [address] [place] [address] Care Team Providers Care Statistical Reporting Analyst Name Role Phone Shania Reyes MD Unavailable Gely Greene MD Primary Care Provider [phone] Reason for Visit * Reason Onset Date Comments Sick Call 01/06/2025 Encounter Details Date Type Department Care Team (Late st Contact Info) Description 01/06/2025 Telephone [facility] [address] [place] [address] Pravin Giles MD [facility] [address] [phone] Sick Call Social History Tobacco Use Types Packs/Day Years Used Date Smoking Tobacco: Former Cigarettes Smokeless Tobacco: Never Comments:smokes about 3 [...] PM EDT documented as of this encounter Miscellaneous Notes * Telephone Encounter - Amanda Nance - 01/07/2025 1:28 PM EDT Called and spoke with patient. Pt. Scheduled with Francheska Hinojosa on 02/18/25 at 9:00 am. Pt. Is going to call PCP to send referral. * Telephone Encounter - Juliann Darion - 01/06/2025 10:45 AM EDT [phone] Pt was away in [place] and just came back. Pt is having an issue with constipated, small stones for stool - Pt has had for months, but gettingworse. documented in this encounter Plan of Treatment Not on file documented as of this encounter Visit Diagnoses Not on filedocumented in this encounter Care Teams Statistical Reporting Analyst Relationship Specialty Start Date End Date Gely Greene MD [address] [place] [address] PCP - General Internal Medicine 07/10/22 Shania Reyes MD [address] [place] [address] [place] [address] Physician Hematology and Oncology 08/19/18 documented as of this encounter
--- OUTSIDE RECORDS SUMMARY | 2025-06-05 19:45 | XMS_ITS | Encounter Summary ---
Author Organization [facility] Address [address] [place] [address] Care Team Providers Care Wood Heel Fitter Machine Name Role Phone Ammon Villagomez MD Primary Care Provider [phone] Colin Hoskins MD Unavailable [phone] Shania Reyes MD Unavailable Gely Greene MD Primary Care Provider [phone] Reason for Referral * Diagnostic (Routine) - Closed Specialty Diagnoses / Procedures Referred By Yash t Referred To Contact Radiology Diagnoses Knee pain Procedures X-ray knee right 4+ views X-ray knee left 4+ views Aric Akins MD [address] [place] [address] Phone: tel: fax: Referral ID Status Reason Start Date Expiration Date Visits Re quested Visits Authorized [id number] Closed 01/25/2016 01/24/2017 1 1 Encounter Details Date Type Department Care Team (Late st Contact Info) Description 01/25/2016 Ancillary Orders [facility] [address] [place] [address] Aric Akins MD [address] [place], [place] [phone] Knee pain (Primary Dx) Social History Tobacco Use Types Packs/Day Years Used Date Smoking Tobacco: Every Day Cigarettes Alcohol Use Standard Drinks/Week Comments No 0 (1 standard drink = 0.6 oz pur e alcohol) Comments Unknown Sex and Gender Information Value Date Recorded Sex Assigned at Female 05/04/2024 2:59 PM EDT Legal Sex Female 6:38 PM EDT Gender Identity Female 05/04/2024 2:59 PM EDT Sexual Orientation Straight 05/04/2024 2: 59 PM EDT documented as of this encounter Plan of Treatment Not on file documented as of this encounter Results * X-ray knee right 4+ views (01/25/2016 4:20 PM EDT) Anatomical Region Laterality Modality Thigh, Ortho Knee Digital Radiog cody Impressions 01/25/2016 4:13 PM EDT X-rays two-view right knee reveal well-positioned femoral and tibial components us Aric Akins MD IMG DIAGNOSTIC IMAGING O RDERABLES Final Result documented in this encounter Visit Diagnoses Diagnosis Knee pain Pain in joint, lower leg Knee pain- Primary Pain in joint, lower leg documented in this encounter Additional Health Concerns Infection Onset Date Last Indicated Resolved Time 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 KT; 03/30/2015 03/30/2015 05/11/2016 6:55 AM E DT PUI COVID 05/24/2020 05/24/2020 05/25/2020 11:4 6 PM EDT PUI COVID 06/24/2020 06/24/2020 06/25/2020 11:4 7 PM EST PUI COVID 08/28/2023 08/28/2023 08/28/2023 5:43 PM EST documented as of this encounter Care Teams Wood Heel Fitter Machine Relationship Specialty Start Date End Date Ammon Villagomez MD [address] [place] [address] PCP - General 04/23/14 07/09/22 Colin Hoskins MD [address] [place] [address] PCP - Hematology/Oncology Hematology and Oncology 11/18/17 09/11/18 Gely Greene MD [address] [facility] [address] PCP - General Internal Medicine 07/10/22 Shania Reyes MD [address] [place] [address] [place] [address] Physician Hematology and Oncology 08/19/18 documented as of this encounter
--- OUTSIDE RECORDS SUMMARY | 2025-06-05 19:45 | XMS_ITS | Encounter Summary ---
Author Organization [facility] Address [address] [place] [address] Care Team Providers Care Barber Stylist Name Role Phone Ammon Villagomez MD Primary Care Provider Shania Reyes MD Unavailable Gely Greene MD Primary Care Provider [phone] Encounter Details Date Type Department Care Team (Late st Contact Info) Description 08/22/2021 Procedure Pass [facility] [address] [place] [address] Social History Tobacco Use Types Packs/Day Years [...] documented as of this encounter Care Teams Barber Stylist Relationship Specialty Start Date End Date Ammon Villagomez MD [address] [place] [address] PCP - General 04/23/14 07/09/22 Gely Greene MD [address] [facility] [place] [address] PCP - General Internal Medicine 07/10/22 Shania Reyes MD [address] [place] [address] [place] [address] Physician Hematology and Oncology 08/19/18 documented as of this encounter
--- OUTSIDE RECORDS SUMMARY | 2025-06-05 19:45 | XMS_ITS | Encounter Summary ---
Author Organization [facility] Address [address] [place] [address] Care Team Providers Care Orthopedics Pediatric Physician Name Role Phone Ammon Villagomez MD Primary Care Provider [phone] Colin Hoskins MD Unavailable [phone] Shania Reyes MD Unavailable Gely Greene MD Primary Care Provider Reason for Referral * Diagnostic (Routine) - Closed Specialty Diagnoses / Procedures Referred By Contac t Referred To Contact Radiology Diagnoses Bone pain Procedures X-ray knee left 4+ views Aric Akins MD [address] [place] [address] Phone: tel: fax: Referral ID Status Reason Start Date Expiration Date Visits Re quested Visits Authorized [id number] Closed 05/03/2017 05/03/2018 1 1 Encounter Details Date Type Department Care Team (Late st Contact Info) Description 05/03/2017 Ancillary Orders [facility] [address] [place] [address] Aric Akins MD [address] [place], [place] [phone] Bone pain (Primary Dx) Social History Tobacco Use [...] of this encounter Results * X-ray knee left 4+ views (05/03/2017 10:47 AM EDT) Narrative Jacki Brooks - 06/04/2024 7:46 AM EDT This exam was auto-finalized as part of chart maintenance activities. No further action is required at this time. us Aric Akins MD IMG DIAGNOSTIC IMAGING O MIC Final Result documented in this encounter Visit Diagnoses Diagnosis Bone pain- Primary Disorder of bone and cartilage, unspecified Bone pain Disorder of bone and cartilage, unspecified documented in this encounter Additional Health Concerns Infection Onset Date Last Indicated Resolved Time PUI COVID 05/24/2020 05/24/2020 05/25/2020 11:4 6 PM EDT PUI COVID 06/24/2020 06/24/2020 06/25/2020 11:4 7 PM EST PUI COVID 08/28/2023 08/28/2023 08/28/2023 5:43 PM EST documented as of this encounter Care Teams Orthopedics Pediatric Physician Relationship Specialty Start Date End Date Ammon Villagomez MD [address] [place] [address] PCP - General 04/23/14 07/09/22 Colin Hoskins MD [address] [facility] [place] [address] PCP - Hematology/Oncology Hematology and Oncology 11/18/17 09/11/18 Gely Greene MD [address] [place] [address] [place] [address] PCP - General Internal Medicine 07/10/22 Shania Reyes MD [address] [place] [address] [place] [address] Physician Hematology and Oncology 08/19/18 documented as of this encounter
--- OUTSIDE RECORDS SUMMARY | 2025-06-05 19:45 | XMS_ITS | Encounter Summary ---
Author Organization [facility] Address [address] [place] [address] Care Team Providers Care Vocational Technical Education Teacher Name Role Phone Ammon Villagomez MD Primary Care Provider Shania Reyes MD Unavailable Gely Greene MD Primary Care Provider [phone] Encounter Details Date Type Department Care Team (Late st Contact Info) Description 03/17/2019 Procedure Pass [facility] - [address] [address] Social History Tobacco Use Types [...] documented as of this encounter Care Teams Vocational Technical Education Teacher Relationship Specialty Start Date End Date Ammon Villagomez MD [address] [place] [address] PCP - General 04/23/14 07/09/22 Gely Greene MD [address] [facility] [address] PCP - General Internal Medicine 07/10/22 Shania Reyes MD [address] [place] [address] - [place] [address] Physician Hematology and Oncology 08/19/18 documented as of this encounter
--- OUTSIDE RECORDS SUMMARY | 2025-06-05 19:45 | XMS_ITS | Encounter Summary ---
Author Organization [facility] Address [address] [place] [address] Care Team Providers Care Jeweler Apprentice Name Role Phone Ammon Villagomez MD Primary Care Provider [phone] Shania Reyes MD Unavailable Gely Greene MD Primary Care Provider [phone] Encounter Details Date Type Department Care Team (Late st Contact Info) Description 09/22/2021 Ancillary Orders [facility] - [address] [address] Gely Greene MD [address] [place] [id number] COPD (chronic obstructive pulmonary disease) ([facility]) Social History Tobacco Use Types Packs/Day Years [...] as of this encounter Visit Diagnoses Diagnosis COPD (chronic obstructive pulmonary disease) (HCC) Chronic airway obstruction, not elsewhere classified documented in this encounter Additional Health Concerns Infection Onset Date Last Indicated Resolved Time PUI COVID 08/28/2023 08/28/2023 08/28/2023 5:43 PM EST documented as of this encounter Care Teams Jeweler Apprentice Relationship Specialty Start Date End Date Ammon Villagomez MD [address] [place] [address] PCP - General 04/23/14 07/09/22 Gely Greene MD [address] [place] [address] PCP - General Internal Medicine 07/10/22 Shania Reyes MD [address] [place] [address] - [place] [address] Physician Hematology and Oncology 08/19/18 documented as of this encounter
--- OUTSIDE RECORDS SUMMARY | 2025-06-05 19:45 | XMS_ITS | Encounter Summary ---
Author Organization [facility] Address [address] [place] [address] Care Team Providers Care Livestock Dealer Name Role Phone Ammon Villagomez MD Primary Care Provider Colin Hoskins MD Unavailable [phone] Shania Reyes MD Unavailable Gely Greene MD Primary Care Provider Encounter Details Date Type Department Care Team (Late st Contact Info) Description 03/19/2016 Lab Requisition [address] [address] Gely Greene MD [address] [place] [phone] Encounter for other specified special examinations Social [...] Procedure Name Priority Date/Time Associated Diagnosis Comments URINE MICROSCOPIC (SEDIMENT ONLY) Routine 03/19/2016 6:00 AM EDT Encounter for other specified special examinations URINALYSIS (NO REFLEX TO CULTURE) Routine 03/19/2016 6:00 AM EDT Encounter for other specified special examinations CBC AND AUTO DIFFERENTIAL Routine 03/19/2016 6:00 AM EDT Encounter for other specified special examinations HEPATIC FUNCTION PANEL Routine 03/19/2016 6:00 AM EDT Encounter for other specified special examinations BASIC METABOLIC PANEL Routine 03/19/2016 6:00 AM EDT Encounter for other specified special examinations documented in this encounter Results * (ABNORMAL) Urine Microscopic (sediment only) (03/19/2016 6:00 AM EDT) WBC 3-5(A) 0 - 2 HPF 03/19/2016 5:48 PM EDT [facility] RBC 0-2 0 - 2 HPF 03/19/2016 5:48 PM EDT [facility] Squam Epithelial Few Few HPF 03/19/2016 5:48 PM EDT [facility] Mucus Few Few HPF 03/19/2016 5:48 PM EDT [facility] Urine specimen (specimen) Urine specimen / Unknown Collection / Unknown 03/19/2016 6:00 AM EDT 03/19/2016 4:51 PM EDT us Gely Greene MD URINE ORDERABLES Final Result [facility] [address] [place] [address] * (ABNORMAL) Urinalysis (NO reflex to culture) (03/19/2016 6:00 AM EDT) Color Yellow Yellow 03/19/2016 5:48 PM EDT [facility] Clarity, UA Clear Clear 03/19/2016 5:48 PM EDT [facility] Specific [place] 1.010 1.005 - 1.030 03/19/2016 5:48 PM EDT [facility] pH 6.0 5.0 - 7.0 03/19/2016 5:48 PM EDT [facility] Protein Negative Negative mg/dL 03/19/2016 5:48 PM EDT [facility] Glucose Negative Negative mg/dL 03/19/2016 5:48 PM EDT [facility] Ketones Negative Negative mg/dL 03/19/2016 5:48 PM EDT [facility] Blood Negative Negative mg/dL 03/19/2016 5:48 PM EDT [facility] Bilirubin UA Negative Negative mg/dL 03/19/2016 5:48 PM EDT [facility] Urobilinogen Normal Normal mg/dL 03/19/2016 5:48 PM EDT [facility] Nitrite Negative Negative 03/19/2016 5:48 PM EDT [facility] Leukocyte Esterase 250(A) Negative Isabell/uL 03/19/2016 5:48 PM EDT [facility] Urine specimen (specimen) Urine specimen / Unknown Collection / Unknown 03/19/2016 6:00 AM EDT 03/19/2016 4:51 PM EDT us Gely Greene MD URINE ORDERABLES Final Result [facility] [address] [place] [address] * (ABNORMAL) Hepatic function panel (03/19/2016 6:00 AM EDT) Albumin 3.5 3.4 - 4.8 g/dL 03/19/2016 9:22 AM EDT [facility] Total Bilirubin 0.4 0.2 - 1.2 mg/dL 03/19/2016 9:22 AM EDT [facility] Bilirubin, Direct 0.1 0.0 - 0.3 mg/dL 03/19/2016 9:22 AM EDT [facility] AST 16 0 - 40 U/L 03/19/2016 9:22 AM EDT [facility] ALT 15 0 - 45 U/L 03/19/2016 9:22 AM EDT [facility] Total Protein 5.6(L) 6.4 - 8.6 g/dL 03/19/2016 9:22 AM EDT [facility] Alkaline Phosphatase 80 40 - 150 IU/L 03/19/2016 9:22 AM EDT [facility] Blood specimen (specimen) Venipuncture / Unknown 03/19/2016 6:00 AM EDT 03/19/2016 8:32 AM EDT us Gely Greene MD LAB BLOOD ORDERABLES Final Re sult [facility] [address] [place] [address] * (ABNORMAL) CBC and Auto Differential (03/19/2016 6:00 AM EDT) WBC 6.4 4.8 - 11.2 10*3/ L 03/19/2016 8:53 AM [facility] RBC 3.05(L) 3.60 - 5.40 10*6/ L 03/19/2016 8:53 AM [facility] HGB 9.2(L) 12.0 - 15.8 g/dL 03/19/2016 8:53 AM [facility] HCT 27.9(L) 36.0 - 48.0 % 03/19/2016 8:53 AM [facility] MCV 91.5 82.0 - 98.0 fL 03/19/2016 8:53 AM [facility] MCH 30.1 27.0 - 35.0 pg 03/19/2016 8:53 AM [facility] MCHC 32.9 32.0 - 37.0 g/dL 03/19/2016 8:53 AM [facility] RDW 14.2 9.0 - 17.9 % 03/19/2016 8:53 AM T [facility] PLT 271 150 - 400 10*3/ L 03/19/2016 8:53 AM EDT [facility] MPV 8.5 7.0 - 14.0 fL 03/19/2016 8:53 AM EDT [facility] Neut % 48.9 45.0 - 85.0 % 03/19/2016 8:53 AM EDT [facility] Lymph % 39.9 15.0 - 45.0 % 03/19/2016 8:53 AM EDT [facility] Mobile % 6.5 0.0 - 12.0 % 03/19/2016 8:53 AM EDT [facility] Eos % 3.9 0.0 - 7.0 % 03/19/2016 8:53 AM EDT [facility] Baso % 0.8 0.0 - 3.0 % 03/19/2016 8:53 AM EDT [facility] Neut # 3.1 10*3/ L 03/19/2016 8:53 AM EDT [facility] NRBC% 0 0 /100 WBC /100 WBC 03/19/2016 8:53 AM T [facility] Blood specimen (specimen) Venipuncture / Unknown 03/19/2016 6:00 AM EDT 03/19/2016 8:32 AM EDT us Gely Greene MD LAB BLOOD ORDERABLES Final Re sult [facility] [address] [place] [address] * (ABNORMAL) Basic metabolic panel (03/19/2016 6:00 AM EDT) Sodium 140 137 - 147 mEq/L 03/19/2016 9:22 AM EDT [facility] Potassium 4.1 3.5 - 5.4 mEq/L 03/19/2016 9:22 AM EDT [facility] Chloride 100 96 - 107 mEq/L 03/19/2016 9:22 AM EDT [facility] CO2 29 24 - 34 mEq/L 03/19/2016 9:22 AM EDT [facility] Anion Gap 11 4 - 15 mEq/L 03/19/2016 9:22 AM EDT [facility] Glucose 107(H) 70 - 100 mg/dL 03/19/2016 9:22 AM EDT [facility] Creatinine 0.52 0.50 - 1.30 mg/dL 03/19/2016 9:22 AM EDT [facility] eGFR >60 60 - 115 mL/min 03/19/2016 9:22 AM EDT [facility] BUN 11 6 - 26 mg/dL 03/19/2016 9:22 AM EDT [facility] Calcium 8.4(L) 8.7 - 10.5 mg/dL 03/19/2016 9:22 AM EDT [facility] Blood specimen (specimen) Venipuncture / Unknown 03/19/2016 6:00 AM EDT 03/19/2016 8:32 AM EDT us Gely Greene MD LAB BLOOD ORDERABLES Final Re sult [facility] [address] [place] [address] documented in this encounter Visit Diagnoses Diagnosis [...] documented as of this encounter Care Teams Livestock Dealer Relationship Specialty Start Date End Date Ammon Villagomez MD [address] [place] [place] [address] PCP - General 04/23/14 07/09/22 Colin Hoskins MD [address] [place] [address] PCP - Hematology/Oncology Hematology and Oncology 11/18/17 09/11/18 Gely Greene MD [address] [facility] [place] [address] PCP - General Internal Medicine 07/10/22 Shania Reyes MD [address] [place] [address] [place] [address] Physician Hematology and Oncology 08/19/18 documented as of this encounter
--- OUTSIDE RECORDS SUMMARY | 2025-06-05 19:45 | XMS_ITS | Encounter Summary ---
Author Organization [facility] Address [address] [place] [address] Care Team Providers Care Sr. Social Media & Mobile Manager Name Role Phone Ammon Villagomez MD Primary Care Provider Shania Reyes MD Unavailable Gely Greene MD Primary Care Provider [phone] Encounter Details Date Type Department Care Team (Late st Contact Info) Description 09/22/2021 Procedure Pass [facility] - [address] [address] Social History Tobacco Use Types [...] documented as of this encounter Care Teams Sr. Social Media & Mobile Manager Relationship Specialty Start Date End Date Ammon Villagomez MD [address] [place] [address] PCP - General 04/23/14 07/09/22 Gely Greene MD [address] [place] [address] [place] [address] PCP - General Internal Medicine 07/10/22 Shania Reyes MD [address] [place] [address] [place] [address] Physician Hematology and Oncology 08/19/18 documented as of this encounter
--- OUTSIDE RECORDS SUMMARY | 2025-06-05 19:45 | XMS_ITS | Encounter Summary ---
Author Organization [facility] Address [address] [place] [address] Care Team Providers Care Tip Inserter Name Role Phone Ammon Villagomez MD Primary Care Provider Colin Hoskins MD Unavailable [phone] Shania Reyes MD Unavailable Gely Greene MD Primary Care Provider Encounter Details Date Type Department Care Team (Late st Contact Info) Description 11/06/2017 Procedure Pass [facility] - [address] [address] Social History Tobacco Use Types [...] documented as of this encounter Care Teams Tip Inserter Relationship Specialty Start Date End Date Ammon Villagomez MD [address] [place] [address] PCP - General 04/23/14 07/09/22 Colin Hoskins MD [address] [place] [address] PCP - Hematology/Oncology Hematology and Oncology 11/18/17 09/11/18 Gely Greene MD [address] [place] [address] PCP - General Internal Medicine 07/10/22 Shania Reyes MD [address] [place] [address] - [place] [address] Physician Hematology and Oncology 08/19/18 documented as of this encounter
--- OUTSIDE RECORDS SUMMARY | 2025-06-05 19:45 | XMS_ITS | Encounter Summary ---
Author Organization [facility] Address [address] [place] [address] Care Team Providers Care Bilingual Social Worker Name Role Phone Ammon Villagomez MD Primary Care Provider [phone] Colin Hoskins MD Unavailable [phone] Shania Reyes MD Unavailable Gely Greene MD Primary Care Provider [phone] Encounter Details Date Type Department Care Team (Late st Contact Info) Description 11/11/2017 Procedure Pass [facility] - [address] [address] Social History Tobacco Use Types [...] documented as of this encounter Care Teams Bilingual Social Worker Relationship Specialty Start Date End Date Ammon Villagomez MD [address] [place] [address] PCP - General 04/23/14 07/09/22 Colin Hoskins MD [address] [place] [address] PCP - Hematology/Oncology Hematology and Oncology 11/18/17 09/11/18 Gely Greene MD [address] [place] [address] PCP - General Internal Medicine 07/10/22 Shania Reyes MD [address] [place] [address] - [place] [address] Physician Hematology and Oncology 08/19/18 documented as of this encounter
--- OUTSIDE RECORDS SUMMARY | 2025-06-05 19:45 | XMS_ITS | Encounter Summary ---
Author Organization [facility] Address [address] [place] [address] Care Team Providers Care Machine Hoop Maker Helper Name Role Phone Ammon Villagomez MD Primary Care Provider [phone] Shania Reyes MD Unavailable Gely Greene MD Primary Care Provider [phone] Encounter Details Date Type Department Care Team (Late st Contact Info) Description 03/04/2019 Procedure Pass [facility] - [address] [address] Social History Tobacco Use Types [...] documented as of this encounter Care Teams Machine Hoop Maker Helper Relationship Specialty Start Date End Date Ammon Villagomez MD [address] [place] [address] PCP - General 04/23/14 07/09/22 Gely Greene MD [address] [facility] [place] [address] PCP - General Internal Medicine 07/10/22 Shania Reyes MD [address] [place] [address] [place] [address] Physician Hematology and Oncology 08/19/18 documented as of this encounter
--- OUTSIDE RECORDS SUMMARY | 2025-06-05 19:45 | XMS_ITS | Patient Health Record ---
Author Organization [facility] Address [address] [place] [address] Care Team Providers Care Program Support Assistant Name Role Phone Ammon Villagomez MD Primary Care Provider Lucas Velasquez Unavailable [phone] Allergies Allergen (clinical drug ingredient) Drug/Non Drug Allergy documented on EMR Reaction Allergy Type Onset Date Status pregabalin lyrica (uncoded) Unknown Allergy Ac tive acetaminophen / oxycodone percocet (uncoded) Unknown Allergy Active Reason For Referral No Information Medications Medication SIG (Take, Route, Frequency, Duration) Notes Start Date End Date Status Tums Smoothies 750 MG 1 tablet Orally Th ree times a day Unknown SEROquel 100 MG 1 tablet Orally Once a day Unknown Protonix 40 MG 1 tablet Orally Once a day Unknown ProAir HFA 108 (90 Base) MCG/ACT 2 puffs as needed Inhalation every 4 hrs Unknown Hydrocortisone 10 MG 1 tablet Orally Onc e a day Unknown Gabapentin 600 MG 1 tablet Orally Thre e times a day Unknown Aspirin EC Low Dose 81 MG 1 tablet Orall y Once a day Unknown Zoloft 100 MG 1 tablet Orally Once a day Unknown Zoloft 100 MG 2 tablets Orally Onc e a day Unknown Nicotine 7 MG/24HR 1 patch to skin Transdermal Once a day Unknown Vitamin D-3 2,000IU 1 capsule Orally Onc e a day; Duration: 30 day(s) 05/27/2015 Unknown LIDOCAINE VISCOUS 2% Unknown Omeprazole 20 MG 1 capsule Once a day 05/27/2015 Unknown Ipratropium-Albuterol 0.5-2.5 (3) MG/3ML 3 ml Inhalation every 6 hrs Unknown Cascade 5-325 MG 1 tablet as needed Orally every 6 hrs; Duration: 7 days 11/28/2015 Unknown GABAPENTIN (GABAPENTIN) 100 mg 1 tablet 3 times a day Unkno wn Immunizations Vaccine Route Administration Date Status Comme nts Flu, Fluvirin Unknown 05/11/2016 Administered Vaccine kristi ivsveta at [facility] Flu, Fluvirin 45262 IM Intramuscular 05/27/2015 Administered Social History Tobacco Use: Social History Observation Description Date Details (start date - stop date) Current Smoker NA - NA Alcohol Screen Question Answer Notes Did you have a drink containing alcohol in the p ast year? No Points 0 Interpretation Negative Tobacco Use/Smoking Question Answer Notes Patient is a: current smoker How often do you smoke? every day How many cigarettes a day do you smoke? 5 or les s Section Notes: Work: [employer] Pets: none Work: [employer] Pets: none Work: [employer] Pets: none Problems Problem Type SNOMED Code ICD Code Onset Dates Problem Status W/U Status Risk Notes Problem Pulmonary nodule (632811002) Pulmonary nodule (R91.1) Active confirmed Problem Annual health maintenance examination (99826685) Annual physical exam (Z00.00) Active confirmed Problem Goiter (4771389) Goiter (E04.9) Active confirme d Problem COPD - Chronic obstructive pulmonary disease (02765144) COPD (chronic obstructive pulmonary disease) (J44.9) Active confirmed Problem Smoker (40613952) Smoker (F17.200) Active confi rmed Problem Thyroid nodule (060206097) Thyroid nodule (E04.1) Active confirmed Problem Depression (307930144) Depression (F32.9) Active confirmed Problem 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) Active confirmed Problem Degeneration of lumbar intervertebral disc (41812450) Degeneration of lumbar or lumbosacral intervertebral disc (M51.37) Active confirmed Problem Sleep disorder (40053091) Sleep disorder (G47.9) Active confirmed Problem Adrenal insufficiency (537780932) Adrenal insufficiency (E27.40) Active confirmed Problem Knee joint effusion (071404984) Knee effusion, right (M25.461) Active confirmed Problem Arthralgia of the pelvic region and thigh (505953065) Hip pain, right (M25.551) Active confirmed Problem Depressive disorder (71808390) Depressive disorder (F32.9) Active confirmed Problem Painful total knee replacement, initial encounter (T84.84XA) Active confirmed Plan Of Treatment Pending Test Test Name Order Date SLEEP STUDY IN-LAB DIAGNOSTIC PSG 2018 Future Test Test Name Order Date Thyroid Tests 2([facility]) (Include TT4 , T3 uptake, Total T3, TSH, FTI) 05/09/2017 TSI (THYROID STIMULATING IMMUNOGLOBULIN) 05/09/2017 Insurance Providers Payer Name Payer Address Payer Phone Subscriber Number Group Number Insured Name Patient Relationship to Insured Coverage Start Date Coverage End Date [employer] Medicare Complete [address] [address] [place] [address] [id number] Allie Caldera Self - patient is the insured 1 [employer] [facility] [address] [place] [address] [id number] Allie Caldera Self - patient is the insured 7 3 [facility] [address] [place] [phone] [id number] Allie Caldera Self - patient is the insured 3 4 [employer] [address] [address] [place] [address] [id number] Allie Caldera Self - patient is the insured 6 Medical (General) History Medical History History ICD Code depression back pain eladio Rodríguez Thyroid nodule Disorder, tobacco use Degeneration of lumbar or lumbosacral in terveterbral disc Arthritis of knee Lung nodule Acute meniscal injury of knee Osteoarthritis Fatigue Symptom, syndrome, chronic fatigue Hyperlipidemia Kiebsiella penumonia Reflux, esophageal Anxiety disorder, generalized Goiter Low cortisone level Obesity Headache Prediabetes Insomnia Anemia Leukocytosis Lymphocytosis Surgical History Surgery Date(Month/Year) Tubal ligation right total knee replacement- Dr Maciel 09/2014 Hospitalization History Reason Date(Month/Year) bronchitis
--- OUTSIDE RECORDS SUMMARY | 2025-06-05 19:45 | XMS_ITS | Encounter Summary ---
Author Organization [facility] Address [address] [place] [address] Care Team Providers Care Manager Talent Management Name Role Phone Ammon Villagomez MD Primary Care Provider Shania Reyes MD Unavailable Gely Greene MD Primary Care Provider [phone] Encounter Details Date Type Department Care Team (Late st Contact Info) Description 03/04/2019 Procedure Pass [facility] - [address] [address] Social History Tobacco Use Types [...] documented as of this encounter Care Teams Manager Talent Management Relationship Specialty Start Date End Date Ammon Villagomez MD [address] [place] [address] PCP - General 04/23/14 07/09/22 Gely Greene MD [address] [facility] [place] [address] PCP - General Internal Medicine 07/10/22 Shania Reyes MD [address] [place] [address] [place] [address] Physician Hematology and Oncology 08/19/18 documented as of this encounter
--- OUTSIDE RECORDS SUMMARY | 2025-06-05 19:45 | XMS_ITS | Encounter Summary ---
Author Organization [facility] Address [address] [place] [address] Care Team Providers Care Mining Detail Draftsperson Name Role Phone Shania Reyes MD Unavailable Gely Greene MD Primary Care Provider [phone] Reason for Referral * GI Referral (Routine) - Authorized Specialty Diagnoses / Procedures Referred By Yash wu Referred To Contact Gastroenterology Diagnoses History of colonic polyps Procedures Colonoscopy Pravin Giles MD [address] [address] Phone: tel: fax: Referral ID Status Reason Start Date Expiration Date V isits Requested Visits Authorized [id number] Authorized 10/29/2024 10/29/2025 1 1 Encounter Details Date Type Department Care Team (Late st Contact Info) Description 10/29/2024 Ancillary Orders [facility] [address] [place] [address] Pravin Giles MD [facility] [place] [phone] History of colonic polyps (Primary Dx) Social History Tobacco Use Types [...] documented as of this encounter Results * Colonoscopy (03/09/2025 9:18 AM EDT) Anatomical Region Laterality Modality Endoscopy Narrative 03/09/2025 9:23 AM EDT Table formatting from the original result was not included. Images from the original result were not included. Colonoscopy Report [facility] Proceduralist Pravin Giles MD Patient Name: Allie Caldera Date of : 1950 PCP Gely [...] of bowel preparation was evaluated using the [place] Bowel Preparation Scale with scores of: right [...] Giles MD GI PROCEDURE ORDERABLES Final Result documented in this encounter Visit Diagnoses Diagnosis History of colonic polyps- Primary Personal history of colonic polyps History of colonic polyps Personal history of colonic polyps documented in this encounter Care Teams Mining Detail Draftsperson Relationship Specialty Start Date End Date Gely Greene MD [address] [place] [address] PCP - General Internal Medicine 07/10/22 Shania Reyes MD [address] [place] [address] [place] [address] Physician Hematology and Oncology 08/19/18 documented as of this encounter
--- OUTSIDE RECORDS SUMMARY | 2025-06-05 19:45 | XMS_ITS | Encounter Summary ---
Author Organization [facility] Address [address] [place] [address] Care Team Providers Care Any Commodity Buyer Name Role Phone Ammon Villagomez MD Primary Care Provider Shania Reyes MD Unavailable Gely Greene MD Primary Care Provider [phone] Reason for Referral * Diagnostic Imaging (Routine) - Closed Specialty Diagnoses / Procedures Referred By Yash wu Referred To Contact Radiology Diagnoses Encounter for screening mammogram for breast cancer Procedures TAMAR breast harmony screening bilateral Ammon Villagomez MD [address] [place] [address] Phone: tel: fax: Referral ID Status Reason Start Date Expiration Date Visits Re quested Visits Authorized [id number] Closed 12/23/2018 12/24/2019 1 1 Encounter Details Date Type Department Care Team (Late st Contact Info) Description 12/23/2018 Ancillary Orders [facility] - [address] [address] Ammon Villagomez MD [address] [place] [address] Encounter for screening mammogram for breast cancer Social History Tobacco Use Types Packs/Day Years [...] documented as of this encounter Results * TAMAR breast harmony screening bilateral (03/11/2019 4:54 PM EDT) Anatomical [...] MD IMG MAMMOGRAPHY ORDERABLES F inal Result documented in this encounter Visit Diagnoses Diagnosis Encounter for screening mammogram for breast cancer Encounter for screening mammogram for breast cancer documented in this encounter Additional Health Concerns Infection Onset Date Last Indicated Resolved Time PUI COVID 05/24/2020 05/24/2020 05/25/2020 11:4 6 PM EDT PUI COVID 06/24/2020 06/24/2020 06/25/2020 11:4 7 PM EST PUI COVID 08/28/2023 08/28/2023 08/28/2023 5:43 PM EST documented as of this encounter Care Teams Any Commodity Buyer Relationship Specialty Start Date End Date Ammon Villagomez MD [address] [place] [address] PCP - General 04/23/14 07/09/22 Gely Greene MD [address] [facility] [place] [address] PCP - General Internal Medicine 07/10/22 Shania Reyes MD [address] [place] [address] - [place] [address] Physician Hematology and Oncology 08/19/18 documented as of this encounter
--- OUTSIDE RECORDS SUMMARY | 2025-06-05 19:45 | XMS_ITS | Encounter Summary ---
Author Organization [facility] Address [address] [place] [address] Care Team Providers Care Operating Room Rn Name Role Phone Ammon Villagomez MD Primary Care Provider Shania Reyes MD Unavailable Gely Greene MD Primary Care Provider [phone] Encounter Details Date Type Department Care Team (Late st Contact Info) Description 10/31/2021 Ancillary Orders [facility] - [address] [address] Ammon Villagomez MD [address] [place] [address] [id number] Visit for screening mammogram Social History Tobacco Use Types Packs/Day Years [...] as of this encounter Visit Diagnoses Diagnosis Visit for screening mammogram documented in this encounter Additional Health Concerns Infection Onset Date Last Indicated Resolved Time PUI COVID 08/28/2023 08/28/2023 08/28/2023 5:43 PM EST documented as of this encounter Care Teams Operating Room Rn Relationship Specialty Start Date End Date Ammon Villagomez MD [address] [place] [address] PCP - General 04/23/14 07/09/22 Gely Greene MD [address] [facility] [place] [address] PCP - General Internal Medicine 07/10/22 Shania Reyes MD [address] [place] [address] [place] [address] Physician Hematology and Oncology 08/19/18 documented as of this encounter
--- OUTSIDE RECORDS SUMMARY | 2025-06-05 19:45 | XMS_ITS | Encounter Summary ---
Author Organization [facility] Address [address] [place] [address] Care Team Providers Care Brand Strategy Manager Name Role Phone Ammon Villagomez MD Primary Care Provider Colin Hoskins MD Unavailable [phone] Shania Reyes MD Unavailable Gely Greene MD Primary Care Provider Reason for Referral * MRI/CAT/PET Scan (Routine) - Closed Specialty Diagnoses / Procedures Referred By Contac t Referred To Contact Radiology Diagnoses Adrenal insufficiency Procedures MRI pituitary with and without contrast MRI brain with contrast Gely Greene MD [address] [place] [address] Phone: tel: fax: [address] [address] Phone: tel: fax: Referral ID Status Reason Start Date Expiration Date Visits Re quested Visits Authorized [id number] Closed 10/25/2017 10/25/2018 1 1 Encounter Details Date Type Department Care Team (Late st Contact Info) Description 11/06/2017 Ancillary Orders [address] [address] Gely Greene MD [address] [place] [address] [place] [address] Adrenal insufficiency (HCC) Social History Tobacco Use Types Packs/Day [...] documented as of this encounter Results * MRI pituitary with and without contrast (11/06/2017 7:18 PM EDT) Anatomical Region Laterality Modality Head, Ortho Head Magnetic Resona nce 11/07/2017 10:2 2 AM EDT Impressions 11/07/2017 4:03 PM EDT IMPRESSION: There is ectasia of the carotid siphons. More notable on the right than left. The may be a small aneurysm off the medial aspect of right carotid siphon. MR angiography recommended. No pituitary abnormality seen. Mild white matter disease. Nonspecific in appearance. Mild left-sided sphenoid air cell disease. Wet reading faxed to the office of Dr. Gely Greene at 10:33 a.m. on 11/07/2017. Narrative 11/07/2017 4:03 PM EDT BRAIN MRI WITH INTRAVENOUS GADOLINIUM: INDICATION: Adrenal insufficiency. The study was performed with the administration of intravenous gadolinium. Axial T2, FLAIR, T1 pre and post gadolinium, diffusion-weighted and coronal T1 post gadolinium images. COMPARISON: No prior studies available. FINDINGS: No acute infarct seen on the diffusion-weighted images. Ventricles and sulci are dilated suggesting some atrophy. No orbital abnormality seen. There is some ectasia of the carotid siphons bilaterally. It might be appropriate to consider a cerebral MR angiogram for further characterization. There is some left-sided sphenoid air cell disease. Mild subcortical white matter disease. Nonspecific in appearance. Could be related to small vessel disease or demyelinating disorder. Pituitary gland is normal in size and signal intensity. No abnormal enhancement seen of the pituitary gland. Procedure Note Mike Whitehead MD - 11/07/2017 BRAIN MRI WITH INTRAVENOUS GADOLINIUM: INDICATION: Adrenal insufficiency. The study was performed with the administration of intravenousgadolinium. Axial T2, FLAIR, T1 pre and post gadolinium, diffusion-weighted andcoronal T1 post gadolinium images. COMPARISON: No prior studies available. FINDINGS: No acute infarct seen on the diffusion-weighted images. Ventricles and sulci are dilated suggesting some atrophy. No orbitalabnormality seen. There is some ectasia of the carotid siphonsbilaterally. It might be appropriate to consider a cerebral MR angiogramfor further characterization. There is some left-sided sphenoid air cell disease. Mild subcortical white matter disease. Nonspecific in appearance. Could berelated to small vessel disease or demyelinating disorder. Pituitary gland is normal in size and signal intensity. No abnormalenhancement seen of the pituitary gland. IMPRESSION: There is ectasia of the carotid siphons. More notable on the right thanleft. The may be a small aneurysm off the medial aspect of right carotidsiphon. MR angiography recommended. No pituitary abnormality seen. Mild white matter disease. Nonspecific in appearance. Mild left-sided sphenoid air cell disease. Wet reading faxed to the office of Dr. Gely Greene at 10:33 a.m. on11/07/2017. Gely Greene MD [facility] MRI ORDERABLES Final Resu lt documented in this encounter Visit Diagnoses Diagnosis Adrenal insufficiency Glucocorticoid deficiency Adrenal insufficiency Glucocorticoid deficiency documented in this encounter Additional Health Concerns Infection Onset Date Last Indicated Resolved Time PUI COVID 05/24/2020 05/24/2020 05/25/2020 11:4 6 PM EDT PUI COVID 06/24/2020 06/24/2020 06/25/2020 11:4 7 PM EST PUI COVID 08/28/2023 08/28/2023 08/28/2023 5:43 PM EST documented as of this encounter Care Teams Brand Strategy Manager Relationship Specialty Start Date End Date Ammon Villagomez MD [address] [place] [address] PCP - General 04/23/14 07/09/22 Colin Hoskins MD [address] [place] [address] PCP - Hematology/Oncology Hematology and Oncology 11/18/17 09/11/18 Gely Greene MD [address] [place] [address] PCP - General Internal Medicine 07/10/22 Shania Reyes MD [address] [place] [address] [place] [address] Physician Hematology and Oncology 08/19/18 documented as of this encounter
--- OUTSIDE RECORDS SUMMARY | 2025-06-05 19:45 | XMS_ITS | Encounter Summary ---
Author Organization [facility] Address [address] [place] [address] Care Team Providers Care President & Ceo Name Role Phone Ammon Villagomez MD Primary Care Provider [phone] Shania Reyes MD Unavailable Gely Greene MD Primary Care Provider [phone] Reason for Referral * Diagnostic Imaging (Routine) - Closed Specialty Diagnoses / Procedures Referred By Contac t Referred To Contact Diagnoses Encounter for medical screening examination Procedures TAMAR outside imaging Gregg Quinteros MD [address] [place] [place] [address] Phone: tel: fax: Referral ID Status Reason Start Date Expiration Date Visits Re quested Visits Authorized [id number] Closed 03/13/2019 03/13/2020 1 1 * Diagnostic Imaging (Routine) - Closed Specialty Diagnoses / Procedures Referred By Contac t Referred To Contact Diagnoses Encounter for medical screening examination Procedures TAMAR outside imaging Gregg Quinteros MD [address] [place] [place] [address] Phone: tel: fax: Referral ID Status Reason Start Date Expiration Date Visits Re quested Visits Authorized [id number] Closed 03/13/2019 03/13/2020 1 1 * Diagnostic Imaging (Routine) - Closed Specialty Diagnoses / Procedures Referred By Yash t Referred To Contact Diagnoses Encounter for medical screening examination Procedures TAMAR outside imaging Gregg Quinteros MD [address] [facility] [place] [address] Phone: tel: fax: Referral ID Status Reason Start Date Expiration Date Visits Re quested Visits Authorized [id number] Closed 03/13/2019 03/13/2020 1 1 Encounter Details Date Type Department Care Team (Late st Contact Info) Description 03/13/2019 Ancillary Orders [address] [phone] Gregg Quinteros MD [address] [place] [address] [place] [address] Encounter for medical screening examination Social History Tobacco Use Types Packs/Day Years [...] as of this encounter Results * TAMAR outside imaging (03/13/2019 10:04 AM EDT) Narrative SYSTEMGENERATED, DOCUMENTATION - 03/13/2019 10:04 AM EDT This order has been auto-finalized and does not contain a result. us Gregg Quinteros MD IMG MAMMOGRAPHY ORDERABLES Final Result * TAMAR outside imaging (03/13/2019 10:04 AM EDT) Narrative SYSTEMGENERATED, DOCUMENTATION - 03/13/2019 10:04 AM EDT This order has been auto-finalized and does not contain a result. Gregg RIVERA MAMMOGRAPHY ORDERABLES Final Result * TAMAR outside imaging (03/13/2019 10:04 AM EDT) Narrative SYSTEMGENERATED, DOCUMENTATION - 03/13/2019 10:04 AM EDT This order has been auto-finalized and does not contain a result. Gregg RIVERA MAMMOGRAPHY ORDERABLES Final Result documented in this encounter Visit Diagnoses Diagnosis Encounter for medical screening examination Encounter for medical screening examination Encounter for medical screening examination Encounter for medical screening examination documented in this encounter Additional Health Concerns Infection Onset Date Last Indicated Resolved Time PUI COVID 05/24/2020 05/24/2020 05/25/2020 11:4 6 PM EDT PUI COVID 06/24/2020 06/24/2020 06/25/2020 11:4 7 PM EST PUI COVID 08/28/2023 08/28/2023 08/28/2023 5:43 PM EST documented as of this encounter Care Teams President & Ceo Relationship Specialty Start Date End Date Ammon Villagomez MD [address] [place] [address] PCP - General 04/23/14 07/09/22 Gely Greene MD [address] [place] [address] [place] [address] PCP - General Internal Medicine 07/10/22 Shania Reyes MD [address] [place] [address] - [place] [address] Physician Hematology and Oncology 08/19/18 documented as of this encounter
--- OUTSIDE RECORDS SUMMARY | 2025-06-05 19:45 | XMS_ITS | Encounter Summary ---
Author Organization [facility] Address [address] [place] [address] Care Team Providers Care Securities Clerk Name Role Phone Ammon Villagomez MD Primary Care Provider Shania Reyes MD Unavailable Gely Greene MD Primary Care Provider Encounter Details Date Type Department Care Team (Late st Contact Info) Description 03/20/2022 Lab Requisition [facility] [place] [address] Gely Greene MD [address] [place] [address] [phone] Unspecified urinary incontinence; Hyperlipidemia, unspecified; Headache, unspecified; Type 2 diabetes mellitus without complications (HCC); Nontoxic single thyroid nodule; Fever, unspecified Social History Tobacco Use Types Packs/Day Years [...] Procedure Name Priority Date/Time Associated Diagnosis Comments C-REACTIVE PROTEIN INFLAMMATION Routine 03/20/2022 9:37 AM EDT Unspecified urinary incontinence Hyperlipidemia, unspecified Headache, unspecified Type 2 diabetes mellitus without complications (HCC) Nontoxic single thyroid nodule Fever, unspecified PROCALCITONIN TEST Routine 03/20/2022 9: 37 AM EDT Unspecified urinary incontinence Hyperlipidemia, unspecified Headache, unspecified Type 2 diabetes mellitus without complications (HCC) Nontoxic single thyroid nodule Fever, unspecified BLOOD CULTURE Routine 03/20/2022 9:37 AM EDT Unspecified urinary incontinence Hyperlipidemia, unspecified Headache, unspecified Type 2 diabetes mellitus without complications (HCC) Nontoxic single thyroid nodule Fever, unspecified SEDIMENTATION RATE, AUTOMATED Routine 03/20/2022 9:37 AM EDT Unspecified urinary incontinence Hyperlipidemia, unspecified Headache, unspecified Type 2 diabetes mellitus without complications (HCC) Nontoxic single thyroid nodule Fever, unspecified CBC AND AUTO DIFFERENTIAL Routine 03/20/2022 9:37 AM EDT Unspecified urinary incontinence Hyperlipidemia, unspecified Headache, unspecified Type 2 diabetes mellitus without complications (HCC) Nontoxic single thyroid nodule Fever, unspecified TSH WITH REFLEX TO FREE T4 Routine 03/20/2022 9:37 AM EDT Unspecified urinary incontinence Hyperlipidemia, unspecified Headache, unspecified Type 2 diabetes mellitus without complications (HCC) Nontoxic single thyroid nodule Fever, unspecified HEMOGLOBIN A1C Routine 03/20/2022 9:37 AM EDT Unspecified urinary incontinence Hyperlipidemia, unspecified Headache, unspecified Type 2 diabetes mellitus without complications (HCC) Nontoxic single thyroid nodule Fever, unspecified CK Routine 03/20/2022 9:37 AM EDT Unspecified urinary incontinence Hyperlipidemia, unspecified Headache, unspecified Type 2 diabetes mellitus without complications (HCC) Nontoxic single thyroid nodule Fever, unspecified LIPID PANEL Routine 03/20/2022 9:37 AM EDT Unspecified urinary incontinence Hyperlipidemia, unspecified Headache, unspecified Type 2 diabetes mellitus without complications (HCC) Nontoxic single thyroid nodule Fever, unspecified COMPREHENSIVE METABOLIC PANEL Routine 03/20/2022 9:37 AM EDT Unspecified urinary incontinence Hyperlipidemia, unspecified Headache, unspecified Type 2 diabetes mellitus without complications (HCC) Nontoxic single thyroid nodule Fever, unspecified documented in this encounter Results * (ABNORMAL) CRP, Inflammation (03/20/2022 9:37 AM EDT) CRP, Inflammation 10.44(H) 0.00 - 3.00 mg/L 03/20/2022 6:26 PM EDT [facility] Blood specimen (specimen) Venipuncture / Unknown 03/20/2022 9:37 AM EDT 03/20/2022 12:04 PM EDT Narrative [facility] - 03/20/2022 6:26 PM EDT >10.0 Consider infection/inflammation Gely Greene MD LAB BLOOD ORDERABLES Final Re sult Performing Organization Address City/[facility]/ZIP Co de Phone Number [facility] [address] [place] [address] * Sedimentation Rate, automated (03/20/2022 9:37 AM EDT) Pathologist [facility] Sed Rate 18 0 - 30 mm/hr 03/20/2022 2:25 PM EDT [facility] Blood specimen (specimen) Venipuncture / Unknown 03/20/2022 9:37 AM EDT 03/20/2022 12:04 PM EDT Gely Greene MD LAB BLOOD ORDERABLES Final Re sult [facility] [address] [place] [phone] * (ABNORMAL) Procalcitonin Test (03/20/2022 9:37 AM EDT) Procalcitonin 0.05(H) 0.00 - 0.05 ng/mL 03/20/2022 3:00 PM EDT [facility] Blood specimen (specimen) Venipuncture / Unknown 03/20/2022 9:37 AM EDT 03/20/2022 12:04 PM EDT Narrative [facility] - 03/20/2022 3:00 PM EDT Levels < 0.50 ng/ml Low risk of progression to severe systemic bacterial infection. Does not exclude a localilzed infection or early stages of a systemic infection. Levels between 0.50-2.00 ng/ml Moderate risk of progression to severe systemic bacterial infection. Levels > 2.00 ng/ml High risk of progression to systemic bacterial infection or severe localized infection (Meningitis, Pneumonia, Peritonitis). Levels > 10.00 ng/ml High likelihood of severe sepsis or septic shock. us Gely Greene MD LAB BLOOD ORDERABLES Final Re sult [facility] [address] [place] [address] * CK (03/20/2022 9:37 AM EDT) Pathologist [facility] Total CPK 79 34 - 145 IU/L 03/20/2022 3:00 PM EDT [facility] Blood specimen (specimen) Venipuncture / Unknown 03/20/2022 9:37 AM EDT 03/20/2022 12:04 PM EDT us Gely Greene MD LAB BLOOD ORDERABLES Final Re sult [facility] [address] [place] [address] * Blood Culture (03/20/2022 9:37 AM EDT) Culture No Growth at 120 hrs. 03/25/2022 2:27 PM EDT [facility] Blood specimen (specimen) Venipuncture / Unknown 03/20/2022 9:37 AM EDT 03/20/2022 12:04 PM EDT Gely Greene MD MICROBIOLOGY - GENERAL ORDERA BLES Final Result Performing Organization Address [facility]/ZIP Co de Phone Number [facility] [address] [place] [phone] * TSH with reflex to Free T4 (03/20/2022 9:37 AM EDT) TSH 0.766 0.340 - 4.820 uIU/mL 03/20/2022 3:00 PM EDT [facility] Blood specimen (specimen) Venipuncture / Unknown 03/20/2022 9:37 AM EDT 03/20/2022 12:04 PM EDT Gely Greene MD LAB BLOOD ORDERABLES Final Re sult Performing Organization Address City/[facility]/ZIP Co de Phone Number [facility] [address] [place] [phone] * (ABNORMAL) Lipid panel (03/20/2022 9:37 AM EDT) Cholesterol 264(H) <200 mg/dL 03/20/2022 3:00 PM EDT [facility] Triglycerides 227(H) <150 mg/dL 03/20/2022 3:00 PM EDT [facility] HDL 45.6(L) >=60.0 mg/dL 03/20/2022 3:00 PM EDT [facility] LDL Calculated 173(H) 0 - 100 mg/dL 03/20/2022 3:00 PM EDT [facility] Cardiac Risk Factor 5.8(H) 0.0 - 4.4 03/20/2022 3:00 PM EDT [facility] Blood specimen (specimen) Venipuncture / Unknown 03/20/2022 9:37 AM EDT 03/20/2022 12:04 PM EDT Narrative [facility] - 03/20/2022 3:00 PM EDT Cardiac Risk Factor: Males Females 2x Average Risk 9.6 7.1 3x Average Risk 23.4 11.0 us Gely Greene MD LAB BLOOD ORDERABLES Final Re sult Performing Organization Address [facility]/ZIP Co de Phone Number [facility] [address] [place] [phone] * Hemoglobin A1c (03/20/2022 9:37 AM EDT) Pathologist [facility] Hemoglobin A1C 5.8 4.0 - 6.0 % 03/20/2022 2:51 PM EDT [facility] Estimated Average Glucose eAG 119.8 85.0 - 126.0 mg/dL 03/20/2022 2:51 PM EDT [facility] Blood specimen (specimen) 03/20/2022 9:37 AM EDT 03/20/2022 12:04 PM EDT us Gely Greene MD LAB BLOOD ORDERABLES Final Re sult Performing Organization Address [facility] Co de Phone Number [facility] [address] [place] [phone] * CBC and Auto Differential (03/20/2022 9:37 AM EDT) Pathologist [facility] WBC 7.1 4.8 - 11.2 10*3/ L 03/20/2022 2:10 PM EDT [facility] RBC 4.37 3.60 - 5.40 10*6/ L 03/20/2022 2:10 PM EDT [facility] HGB 13.6 12.0 - 15.8 g/dL 03/20/2022 2:10 PM EDT [facility] HCT 41.2 36.0 - 48.0 % 03/20/2022 2:10 PM EDT [facility] MCV 94.3 82.0 - 98.0 fL 03/20/2022 2:10 PM EDT [facility] MCH 31.2 27.0 - 35.0 pg 03/20/2022 2:10 PM EDT [facility] MCHC 33.1 32.0 - 37.0 g/dL 03/20/2022 2:10 PM EDT [facility] RDW 14.4 12.0 - 15.0 % 03/20/2022 2:10 PM EDT [facility] PLT 383 150 - 400 10*3/ L 03/20/2022 2:10 PM EDT [facility] MPV 7.8 7.0 - 14.0 fL 03/20/2022 2:10 PM EDT [facility] Neut % 46.9 45.0 - 85.0 % 03/20/2022 2:10 PM EDT [facility] Lymph % 43.5 15.0 - 45.0 % 03/20/2022 2:10 PM EDT [facility] Seneca % 5.9 0.0 - 12.0 % 03/20/2022 2:10 PM EDT [facility] Eos % 2.7 0.0 - 7.0 % 03/20/2022 2:10 PM EDT [facility] Baso % 1.0 0.0 - 3.0 % 03/20/2022 2:10 PM EDT [facility] NRBC% 0 0 /100 WBC /100 WBC 03/20/2022 2:10 PM EDT [facility] Neut # 3.3 2.2 - 9.5 10*3/ L 03/20/2022 2:10 PM EDT [facility] Lym # 3.1 0.7 - 5.0 10*3/ L 03/20/2022 2:10 PM EDT [facility] [place] # 0.4 0.0 - 1.3 10*3/ L 03/20/2022 2:10 PM EDT [facility] Eos # 0.2 0.0 - 0.4 10*3/ L 03/20/2022 2:10 PM EDT [facility] Baso # 0.1 0.0 - 0.3 10*3/ L 03/20/2022 2:10 PM EDT [facility] Blood specimen (specimen) Venipuncture / Unknown 03/20/2022 9:37 AM EDT 03/20/2022 12:04 PM EDT us Gely Greene MD LAB BLOOD ORDERABLES Final Re sult [facility] [address] [place] [address] * (ABNORMAL) Comprehensive metabolic panel (03/20/2022 9:37 AM EDT) Sodium 141 136 - 145 mEq/L 03/20/2022 3:00 PM EDT [facility] Potassium 3.6 3.5 - 5.1 mEq/L 03/20/2022 3:00 PM T [facility] Chloride 103 98 - 107 mEq/L 03/20/2022 3:00 PM T [facility] CO2 29 20 - 31 mEq/L 03/20/2022 3:00 PM T [facility] Anion Gap 9 4 - 15 mEq/L 03/20/2022 3:00 PM [facility] Glucose 118(H) 70 - 100 mg/dL 03/20/2022 3:00 PM T [facility] Creatinine 0.70 0.50 - 1.00 mg/dL 03/20/2022 3:00 PM T [facility] eGFR >60 60 - 115 mL/min 03/20/2022 3:00 PM T [facility] BUN 15 9 - 23 mg/dL 03/20/2022 3:00 PM T [facility] Calcium 9.6 8.7 - 10.4 mg/dL 03/20/2022 3:00 PM T [facility] Total Protein 7.3 5.7 - 8.2 g/dL 03/20/2022 3:00 PM T [facility] Albumin 4.7 3.2 - 4.8 g/dL 03/20/2022 3:00 PM EDT [facility] A/G Ratio 1.8 1.0 - 2.3 03/20/2022 3:00 PM EDT [facility] Total Bilirubin 0.2 0.2 - 1.0 mg/dL 03/20/2022 3:00 PM EDT [facility] AST 25 13 - 40 U/L 03/20/2022 3:00 PM EDT [facility] Alkaline Phosphatase 108 46 - 116 IU/L 03/20/2022 3:00 PM EDT [facility] ALT 24 7 - 40 U/L 03/20/2022 3:00 PM EDT [facility] Blood specimen (specimen) Venipuncture / Unknown 03/20/2022 9:37 AM EDT 03/20/2022 12:04 PM EDT Gely Greene MD LAB BLOOD ORDERABLES Final Re sult [facility] [address] [place] [address] documented in this encounter Visit Diagnoses Diagnosis Unspecified urinary incontinence Hyperlipidemia, unspecified Headache, unspecified Type 2 diabetes mellitus without complications (HCC) Nontoxic single thyroid nodule Nontoxic uninodular goiter Fever, unspecified documented in this encounter Additional Health Concerns Infection Onset Date Last Indicated Resolved Time PUI COVID 08/28/2023 08/28/2023 08/28/2023 5:43 PM EST documented as of this encounter Care Teams Securities Clerk Relationship Specialty Start Date End Date Ammon Villagomez MD [address] [place] [address] PCP - General 04/23/14 07/09/22 Gely Greene MD [address] [place] [address] PCP - General Internal Medicine 07/10/22 Shania Reyes MD [address] [place] [address] [place] [address] Physician Hematology and Oncology 08/19/18 documented as of this encounter
--- OUTSIDE RECORDS SUMMARY | 2025-06-05 19:45 | XMS_ITS | Encounter Summary ---
Author Organization [facility] Address [address] [place] [address] Care Team Providers Care Riveter Portable Machine Name Role Phone Shania Reyes MD Unavailable Gely Greene MD Primary Care Provider [phone] Encounter Details Date Type Department Care Team (Late st Contact Info) Description 10/29/2024 Procedure Pass [facility] - [address] [address] Social History Tobacco Use Types Packs/Day Years Used Date Smoking Tobacco: Former Cigarettes Smokeless Tobacco: Never Alcohol Use Standard [...] on filedocumented in this encounter Care Teams Riveter Portable Machine Relationship Specialty Start Date End Date Gely Greene MD [address] [place] [address] PCP - General Internal Medicine 07/10/22 Shania Reyes MD [address] [place] [address] [place] [address] Physician Hematology and Oncology 08/19/18 documented as of this encounter
--- OUTSIDE RECORDS SUMMARY | 2025-06-05 19:45 | XMS_ITS | Encounter Summary ---
Author Organization [facility] Address [address] [place] [address] Care Team Providers Care Ethanol Maintenance Mechanic Name Role Phone Ammon Villagomez MD Primary Care Provider Colin Hoskins MD Unavailable [phone] Shania Reyes MD Unavailable Gely Greene MD Primary Care Provider [phone] Reason for Referral * Diagnostic (Routine) - Closed Specialty Diagnoses / Procedures Referred By Contac t Referred To Contact Radiology Diagnoses Bone pain Procedures X-ray knee right 4+ views Aric Akins MD [address] [place] [address] Phone: tel: fax: Referral ID Status Reason Start Date Expiration Date Visits Re quested Visits Authorized [id number] Closed 08/30/2017 08/30/2018 1 1 Encounter Details Date Type Department Care Team (Late st Contact Info) Description 08/30/2017 Ancillary Orders [facility] [address] [place] [address] Aric Akins MD [address] [place], [place] [phone] Bone pain Social History Tobacco Use Types Packs/Day Years [...] Results * X-ray knee right 4+ views (08/30/2017 2:56 PM EST) Anatomical Region Laterality Modality Thigh, Ortho Knee Digital Radiog cody Narrative 10/23/2017 9:50 AM EDT X-Ray of the right knee (4 views) was obtained on today's visit. This study was ordered, reviewed and interpreted by me. The patient is status post knee arthroplasty. The bones and prosthesis are normally aligned. There is no evidence of abnormal radiolucency along the bone, prosthetic interface. There is no evidence of joint space narrowing. This demonstrates no evidence of acute fracture, subluxation, dislocation. Aric Akins MD IMG DIAGNOSTIC IMAGING O RDERABLES Final Result documented in this encounter Visit Diagnoses Diagnosis Bone pain Disorder of bone and cartilage, unspecified Bone pain Disorder of bone and cartilage, unspecified documented in this encounter Additional Health Concerns Infection Onset Date Last Indicated Resolved Time PUI COVID 05/24/2020 05/24/2020 05/25/2020 11:4 6 PM EDT PUI COVID 06/24/2020 06/24/2020 06/25/2020 11:4 7 PM EST PUI COVID 08/28/2023 08/28/2023 08/28/2023 5:43 PM EST documented as of this encounter Care Teams Ethanol Maintenance Mechanic Relationship Specialty Start Date End Date Ammon Villagomez MD [address] [place] [address] PCP - General 04/23/14 07/09/22 Colin Hoskins MD [address] [place] [address] PCP - Hematology/Oncology Hematology and Oncology 11/18/17 09/11/18 Gely Greene MD [address] [place] [address] PCP - General Internal Medicine 07/10/22 Shania Reyes MD [address] [place] [address] [place] [address] Physician Hematology and Oncology 08/19/18 documented as of this encounter
--- OUTSIDE RECORDS SUMMARY | 2025-06-05 19:45 | XMS_ITS | Encounter Summary ---
Author Organization [facility] Address [address] [place] [address] Care Team Providers Care Antique Jewelry Repairer Name Role Phone Ammon Villagomez MD Primary Care Provider [phone] Shania Reyes MD Unavailable Gely Greene MD Primary Care Provider [phone] Reason for Referral * Diagnostic (Routine) - Closed Specialty Diagnoses / Procedures Referred By Contzain t Referred To Contact Cardiology Diagnoses Palpitation Procedures Cardiac echo complete Ammon Villagomez MD [address] [place] [address] Phone: tel: fax: [address] [address] Phone: tel: fax: Referral ID Status Reason Start Date Expiration Date Visits Re quested Visits Authorized [id number] Closed 11/26/2018 11/27/2019 1 1 Encounter Details Date Type Department Care Team (Late st Contact Info) Description 11/26/2018 Ancillary Orders [facility] - [address] [address] Ammon Villagomez MD [address] [place] [address] Palpitation Social History Tobacco Use Types Packs/Day Years [...] this encounter Results * CARDIAC ECHO COMPLETE (12/08/2018 12:30 PM EDT) TERRA VTI 2.66 cm2 [facility] AV VTI Ratio 0.70 [facility] LVIDD 3.83 3.5 - 6.0 cm [facility] IVS 0.96 0.6 - 1.1 cm [facility] PW 0.96 0.6 - 1.1 cm [facility] LVIDS 2.35 2.1 - 4.0 cm [facility] FS 38.64 28 - 44 % [facility] IVC Proximal 2.46 cm [facility] LA Volume 48.99 mL [facility] Sinus Diameter 3.07 cm [facility] Prox Asc Aorta 2.88 cm [facility] LA Size 3.12 cm [facility] AV Mn Grad 4.68 mmHg [facility] Velocity Ratio (DI) 0.85 [facility] LVOT Pk Grad 6.37 mmHg [facility] PV Pk Grad 2.03 mmHg [facility] E/A Ratio 1.22 [facility] TDI e' 0.10 m/s [facility] MV Decel Time 240.72 msec [facility] LVOT Diam 2.20 cm [facility] LVOT Pk Miles 1.26 m/s [facility] LVOT VTI 22.64 cm [facility] AV Pk Miles 1.49 m/s [facility] AV VTI 32.37 cm [facility] LVOT SV 86.02 ml [facility] AV Pk Grad 8.91 mmHg [facility] PASP 31.00 mmHg [facility] MV Pk E Miles 0.71 m/s [facility] MV Pk A Miles 0.58 m/s [facility] LA Vol Ind 26.63 mL/m2 [facility] BSA 1.84 m2 [facility] RA Area 13.50 cm2 [facility] PV pk miles 0.71 m/s [facility] TERRA Index 1.44 cm2/m2 [facility] Est. RAP 8.00 mmHg [facility] RV AP4 Base 2.70 cm [facility] RV AP4 Mid 1.80 cm [facility] TAPSE 1.70 cm [facility] RV S' Miles 0.12 m/s [facility] E/E' Ratio 7.36 [facility] Sinus Diameter - Index 1.67 cm/m2 [facility] Prox Asc Aorta - Index 1.57 cm/m2 [facility] LVOT SVI 46.75 ml/m2 [facility] TR Pk Grad 22.68 mmHg [facility] EF 70 % [facility] LVOT Area 3.80 cm2 [facility] Anatomical Region Laterality Modality Heart (Echo) Ultrasound Narrative 12/09/2018 12:01 PM EDT Left ventricle: Normal size and systolic function. LVEF 65%. Normal wall motion. Right ventricle: Normal size and systolic function Valves: No significant structural abnormalities with overall normal function. Mild mitral and tricuspid regurgitation. Estimated pulmonary artery systolic pressure: Normal Aortic root/proximal ascending aorta size: Normal Pericardium: No effusion Compared to previous study (2016, 2017, 2018), no significant change. Left Ventricle Normal cavity size and wall thickness. Normal (60-65%) ejection fraction. No regional wall motion abnormalities noted. Normal diastolic function. Right Ventricle Normal cavity size and systolic function. Left Atrium Normal cavity size. No atrial septal defect or shunt flow is demonstrated by color flow Doppler. Right Atrium Normal cavity size. IVC/SVC Size and degree of collapse consistent with mildly elevated estimated right atrial pressure (8 mm Hg). Mitral Valve Normal valve structure. Mild regurgitation. No stenosis noted. Tricuspid Valve Normal tricuspid valve structure. Mild regurgitation noted. Estimated pulmonary artery pressure is normal. No stenosis noted. Aortic Valve Normal valve structure. No regurgitation noted. No stenosis noted. Pulmonic Valve Normal valve structure. Trace regurgitation noted. No stenosis noted. Pericardium No pericardial effusion. Aorta Normal aortic root and proximal ascending aorta size. General Study Information Technologist-entered indication(s): Palpitations Image quality: Fair. Cardiac rhythm observed: Sinus rhythm. Previous study date: 11/11/2017 Wall Scoring Score Index: 1.000 Percent Normal: 100.0% The left ventricular wall motion is normal. us Ammon Villagomez MD CV ECHO ORDERABLES Final Res ult documented in this encounter Visit Diagnoses Diagnosis Palpitation Palpitations Palpitation Palpitations documented in this encounter Additional Health Concerns Infection Onset Date Last Indicated Resolved Time PUI COVID 05/24/2020 05/24/2020 05/25/2020 11:4 6 PM EDT PUI COVID 06/24/2020 06/24/2020 06/25/2020 11:4 7 PM EST PUI COVID 08/28/2023 08/28/2023 08/28/2023 5:43 PM EST documented as of this encounter Care Teams Antique Jewelry Repairer Relationship Specialty Start Date End Date Ammon Villagomez MD [address] [place] [address] PCP - General 04/23/14 07/09/22 Gely Greene MD [address] [place] [address] PCP - General Internal Medicine 07/10/22 Shania Reyes MD [address] [place] [address] [place] [address] Physician Hematology and Oncology 08/19/18 documented as of this encounter
--- OUTSIDE RECORDS SUMMARY | 2025-06-05 19:46 | XMS_ITS | Encounter Summary ---
Author Organization [facility] Address [address] [place] [address] Care Team Providers Care Nurses' Association Counselor Name Role Phone Ammon Villagomez MD Primary Care Provider [phone] Colin Hoskins MD Unavailable [phone] Shania Reyes MD Unavailable Gely Greene MD Primary Care Provider [phone] Reason for Referral * Diagnostic (Emergency) - Closed Specialty Diagnoses / Procedures Referred By Contac t Referred To Contact Cardiology Diagnoses Left leg pain Procedures Ultrasound venous duplex lower extremity left Gely Greene MD [address] [place] [address] Phone: tel: fax: [address] [address] Phone: tel: fax: Referral ID Status Reason Start Date Expiration Date Visits Re quested Visits Authorized [id number] Closed 02/06/2017 08/05/2017 1 1 Encounter Details Date Type Department Care Team (Late st Contact Info) Description 02/06/2017 Ancillary Orders [address] [address] Gely Greene MD [address] [place] [address] [place] [address] Left leg pain (Primary Dx) Social History Tobacco Use [...] documented as of this encounter Results * Ultrasound venous duplex lower extremity left (02/06/2017 6:26 PM EDT) Anatomical Region Laterality Modality Vascular, Leg Ultrasound 02/06/2017 6:33 PM EDT Impressions 02/06/2017 8:14 PM EDT IMPRESSION: No evidence of deep vein thrombosis in femoral, popliteal and visualized calf veins. Distal femoral vein not visualized. If symptoms persist, repeat venous ultrasound is recommended in 72 hours. Narrative 02/06/2017 8:14 PM EDT INDICATION: Left calf pain for a few weeks with swelling. Compression ultrasound of the femoral, popliteal and visualized calf veins was performed. The distal femoral vein is not visualized due to edema. The veins are readily compressible and there is no evidence of thrombus. The veins were also analyzed by Doppler augmentation, spectral wave forms and color Doppler flow studies. There is satisfactory augmentation and normal venous flow is demonstrated by color Doppler. Procedure Note Franklin Gu MD - 02/06/2017 INDICATION: Left calf pain for a few weeks with swelling. Compression ultrasound of the femoral, popliteal and visualized calf veinswas performed. The distal femoral vein is not visualized due to edema. Theveins are readily compressible and there is no evidence of thrombus. Theveins were also analyzed by Doppler augmentation, spectral wave forms and color Doppler flow studies.There is satisfactory augmentation and normal venous flow is demonstratedby color Doppler. IMPRESSION: No evidence of deep vein thrombosis in femoral, popliteal and visualizedcalf veins. Distal femoral vein not visualized. If symptoms persist,repeat venous ultrasound is recommended in 72 hours. us Gely Greene MD CV VASCULAR ORDERABLES Final Result documented in this encounter Visit Diagnoses Diagnosis Left leg pain- Primary Pain in soft tissues of limb Left leg pain Pain in soft tissues of limb documented in this encounter Additional Health Concerns Infection Onset Date Last Indicated Resolved Time PUI COVID 05/24/2020 05/24/2020 05/25/2020 11:4 6 PM EDT PUI COVID 06/24/2020 06/24/2020 06/25/2020 11:4 7 PM EST PUI COVID 08/28/2023 08/28/2023 08/28/2023 5:43 PM EST documented as of this encounter Care Teams Nurses' Association Counselor Relationship Specialty Start Date End Date Ammon Villagomez MD [address] [place] [address] PCP - General 04/23/14 07/09/22 Colin Hoskins MD [address] [place] [address] PCP - Hematology/Oncology Hematology and Oncology 11/18/17 09/11/18 Gely Greene MD [address] [facility] [place] [address] PCP - General Internal Medicine 07/10/22 Shania Reyes MD [address] [place] [address] - [place] [address] Physician Hematology and Oncology 08/19/18 documented as of this encounter
--- OUTSIDE RECORDS SUMMARY | 2025-06-05 19:46 | XMS_ITS | Encounter Summary ---
Author Organization [facility] Address [address] [place] [address] Care Team Providers Care Steam Flattener Name Role Phone Ammon Villagomez MD Primary Care Provider Shania Reyes MD Unavailable Gely Greene MD Primary Care Provider [phone] Encounter Details Date Type Department Care Team (Late st Contact Info) Description 11/04/2020 Lab Requisition [facility] [address] [place] [address] Gely Greene MD [address] [place] [address] Fever, unspecified; Nontoxic single thyroid nodule; Hyperlipidemia, unspecified; Prediabetes Social History Tobacco Use Types Packs/Day Years [...] Procedure Name Priority Date/Time Associated Diagnosis Comments TB T-SPOT Routine 11/07/2020 10:25 AM EDT Fever, unspecified Nontoxic single thyroid nodule Hyperlipidemia, unspecified Prediabetes MAGNESIUM Routine 11/07/2020 10:25 AM EDT Fever, unspecified Nontoxic single thyroid nodule Hyperlipidemia, unspecified Prediabetes BASIC METABOLIC PANEL Routine 11/07/2020 10:25 AM EDT Fever, unspecified Nontoxic single thyroid nodule Hyperlipidemia, unspecified Prediabetes documented in this encounter Results * (ABNORMAL) Basic metabolic panel (11/07/2020 10:25 AM EDT) Sodium 141 136 - 145 mEq/L 11/07/2020 5:42 PM [facility] Potassium 3.9 3.5 - 5.1 mEq/L 11/07/2020 5:42 PM T [facility] Chloride 106 98 - 107 mEq/L 11/07/2020 5:42 PM T [facility] CO2 25 20 - 31 mEq/L 11/07/2020 5:42 PM T [facility] Anion Gap 10 4 - 15 mEq/L 11/07/2020 5:42 PM [facility] Glucose 197(H) 70 - 100 mg/dL 11/07/2020 5:42 PM [facility] Creatinine 0.70 0.50 - 1.00 mg/dL 11/07/2020 5:42 PM T [facility] eGFR >60 60 - 115 mL/min 11/07/2020 5:42 PM [facility] BUN 15 9 - 23 mg/dL 11/07/2020 5:42 PM [facility] Calcium 9.9 8.7 - 10.4 mg/dL 11/07/2020 5:42 PM [facility] Blood specimen (specimen) Venipuncture / Unknown 11/07/2020 10:25 AM EDT 11/07/2020 12:46 PM EDT [facility] - 11/07/2020 5:42 PM EDT Reference range has been changed as of 05/03/2020. Gely Greene MD LAB BLOOD ORDERABLES Final Re sult Performing Organization Address [facility]/ZIP Co de Phone Number [facility] [address] [place] [phone] * Magnesium (11/07/2020 10:25 AM EDT) [facility] Magnesium 1.8 1.6 - 2.6 mg/dL 11/07/2020 5:42 PM EDT [facility] Blood specimen (specimen) Venipuncture / Unknown 11/07/2020 10:25 AM EDT 11/07/2020 12:46 PM EDT [facility] - 11/07/2020 5:42 PM EDT Reference range has been changed as of 05/03/2020. Gely Greene MD LAB BLOOD ORDERABLES Final Re sult Performing Organization Address [facility]/ZIP Co de Phone Number [facility] [address] [place] [phone] * Tuberculosis T-Spot (11/07/2020 10:25 AM EDT) [facility] Panel A Spot Count 1 2020 8:09 PM EDT [facility] T-Spot Negative SeeBelow 11/09/2020 8:09 PM EDT [facility] Comment: Normal Value: Negative A negative test result does not exclude the possibility of exposure to or infection with Mycobacterium tuberculosis (M. tuberculosis). Patients with recent exposure to TB infected individuals exhibiting a negative T-SPOT.TB result should be considered for retesting within 6 weeks or if other relevant clinical symptoms indicate. Results from T-SPOT.TB testing must be used in conjunction with each individual's epidemiological history, current medical status, and results of other diagnostic evaluations. The T-SPOT.TB test is qualitative and results are reported as positive, borderline or negative, given that the test controls perform as expected. In line with the Centers for Disease Control and Prevention's 2010 recommendation to report quantitative measurements alongside the qualitative result, the laboratory provides spot counts for informational purposes only. The T-SPOT.TB test should not be interpreted as a quantitative test. Panel B Spot Count 3 2020 8:09 PM EDT [facility] Nil (Neg) Control Spot Count Passed 11/09/2020 8:09 PM EDT [facility] Positive Control Spot Count Passed 11/09/2020 8:09 PM EDT [facility] Blood specimen (specimen) Venipuncture / Unknown 11/07/2020 10:25 AM EDT 11/07/2020 12:47 PM EDT Narrative [facility] - 11/09/2020 8:09 PM EDT Performing Organization Information: Site ID: [id number] Name: [facility] Address: [address] [place] [id number] Director: Pravin Chao MD,PhD us Gely Greene MD LAB BLOOD ORDERABLES Final Re sult [facility] [address] [place] [address] documented in this encounter Visit Diagnoses Diagnosis Fever, unspecified Nontoxic single thyroid nodule Nontoxic uninodular goiter Hyperlipidemia, unspecified Prediabetes Other abnormal glucose documented in this encounter Additional Health Concerns Infection Onset Date Last Indicated Resolved Time PUI COVID 08/28/2023 08/28/2023 08/28/2023 5:43 PM EST documented as of this encounter Care Teams Steam Flattener Relationship Specialty Start Date End Date Ammon Villagomez MD [address] [place] [address] PCP - General 04/23/14 07/09/22 Gely Greene MD [address] [place] [address] PCP - General Internal Medicine 07/10/22 Shania Reyes MD [address] [place] [address] - [place] [address] Physician Hematology and Oncology 08/19/18 documented as of this encounter
--- OUTSIDE RECORDS SUMMARY | 2025-06-05 19:46 | XMS_ITS | Data Portability ---
Author Organization [facility] - Dr. Pravin feliciano, [facility] Address [address] [place] [address] Care Team Providers Care Shellac Polisher Name Role Phone TIPMITALI BARONE Referring Provider Assessment Encounter Date Assessment Date Assessment LastModified by Organization Details LastModified Time 05/04/2015 05/04/2015 Patient presents with back pain for many years and significant chronic pain in numerous areas. She had a right knee replacement early in 2014 and says her right knee pain has been worse since that time. She says that her back has been worse since November of 2014. Since that her pain has been very severe and radiates into her left leg, down the side and into the anterior calf in L4 dermatome. She has numbness and tingling in the same left L4 distribution. She reports left sided weakness. She denies right sided symptoms at all except for exquisite pain directly around the sides of the anterior knee incision. No other right leg symptoms. She has undergone physical therapy and multiple epidural injections with Dr. Austin which provided some relief. She had a very painful experience with an injection with Dr. Myles a few weeks ago and is very unhappy with him. She takes 2 vicodin, gabapentin and lyrica daily which provide some relief. She is scheduled to start physical therapy for her back but was waiting for neurosurgical evaluation first. MRI at [facility] reveals left L2-3 disc herniation impinging on the L3 root and severe stenosis bilaterally at L4-5 and L5-S1. I have discussed this with her and all questions were answered. I told her that her pain is predominantly in the lower back and I was not sure that surgery for stenosis would help that at all. Her leg symptoms are almost predominantly in the left leg and I told her that the L4-5 and L5-S1 disease was symmetric so it did not appear that was symptomatic. Also, her left leg symptoms are not in the L3 distribution so I told her that I wasn't sure that was the cause either. She has suffered from significantly worsened pain in the right knee ever since her knee surgery as well. I recommended EMG to evaluate for nerve irritation. I recommended she proceed with physical therapy for now and I will see her back after the EMG. ckanaly Not available 05/05/2015 15:05:57 06/23/2015 06/23/2015 Patient presents with back pain for many years and significant chronic pain in numerous areas. She had a right knee replacement early in 2014 and says her right knee pain has been worse since that time. She says that her back has been worse since November of 2014. Since that her pain has been very severe and radiates into her left leg, down the side and into the anterior calf in L4 dermatome. She has numbness and tingling in the same left L4 distribution. She reports left sided weakness. She denies right sided symptoms at all except for exquisite pain directly around the sides of the anterior knee incision. No other right leg symptoms. She has undergone physical therapy and multiple epidural injections with Dr. Austin which provided some relief. She had a very painful experience with an injection with Dr. Myles a few weeks ago and is very unhappy with him. She takes 2 vicodin, gabapentin and lyrica daily which provide some relief. She is scheduled to start physical therapy for her back but was waiting for neurosurgical evaluation first. MRI at [facility] reveals left L2-3 disc herniation impinging on the L3 root and severe stenosis bilaterally at L4-5 and L5-S1. I have discussed this with her and all questions were answered. I told her that her pain is predominantly in the lower back and I was not sure that surgery for stenosis would help that at all. Her leg symptoms are almost predominantly in the left leg and I told her that the L4-5 and L5-S1 disease was symmetric so it did not appear that was symptomatic. Also, her left leg symptoms are not in the L3 distribution so I told her that I wasn't sure that was the cause either. She has suffered from significantly worsened pain in the right knee ever since her knee surgery as well. EMG revealed absent peroneal motor activity which could be visitor services representative of a bilateral L5 radiculopathy.Sin ce her last visit she has started physical therapy and this has been helping to slowly alleviate some of her back pain. She has severe right knee symptoms that are actually her predominant complaint at this time. I recommended she continue with her PT for now and her follow up appointments with Dr. Cuadra, and I will see her back in a few months. I discussed possible L4-S1 decompression surgery however told her that I wasn't sure it would help and that I wouldn't recommend it as she is still recovering from her knee. ckanaly Not available 06/23/2015 14:35:58 Plan of Treatment Reminders Order Date Submit Date Provider Last Modified By Organization Details Last Modified Time Details Appointments None recorded. Lab None recorded. Referral electromyog ernesto/nerve conduction referral - rule out entrapment versus radiculopat hy, bilateral lower extremities . PLEASE CALL PATIENT TO BOOK APPOINTMENT 2014 [id number] ARIELA Not available 12:41:09 Procedures None recorded. Surgeries None recorded. Imaging None recorded. Medication Orders None recorded. Patient TargetsNo targets recorded. Patient Instructions Encounter Date Encounter Id Patient Instructions Last Modified By Organization Details Last Modified Time 05/04/2015 [id number] low back arthritis: exercises ckanaly Not available 05/05/2015 15:05:56 Reason for Referral Electromyogram/nerve Conduct ion Referral for Lumbosacral spondylosis without myelopathy rule out entrapment versus radiculopathy, bilateral lower extremities. PLEASE CALL PATIENT TO BOOK APPOINTMENT Referring Physician: Pravin Booker, Neurosurgery, Encounter Date: 05/04/2015 Problems Name Problem SNOMED Code Status Onset Date Resolution Date Notes Provider Name and Address Organization Details Recorded Time Lumbosacral spondylosis without myelopathy 52385831 Active SUMMER Lozada [address] [place] [address] [facility] [place], [address], [place] - Dr. Pravin Booker 5 14:14:21 Cervical spondylosis without myelopathy 950112312 Active Pravin Booker MD [address] [facility] [address], [place], [address], [place] Markus Booker 5 14:35:58 Lumbosacral spondylosis with radiculopathy 160361877 Active Pravin Booker MD [address] [place] [address], [place], [address], [facility] Booker 5 14:35:58 Problem Notes None recorded. Procedures Surgical History Date Name Laterality Status Provider Name and Address Organization Details Recorded Time 5 Knee Surgery completed Bhavesh Booker 05/04/2015 14:38:28 0 Carcass Washer Surgery completed Bhavesh Booker 05/04/2015 14:38:28 Removal of tonsils completed Bhavesh Booker 05/04/2015 14:38:28 Imaging Results None recorded. Procedure Notes None recorded. Medical Equipment None Reported. Allergies Allergen ID Allergen Name Allergen Category Reaction Reaction Severity Criticality Documentation Date Start Date Code Code System Note Provider Name and Address Organization Details Recorded Time 5747 acetamino phen / oxycodone medicatio n other Not available Not available 05/04/2015 [address] [address] 14:49:02 Medications Name Sig Start Date Stop Date Status Note LastModified by Organization Details LastModified Time clotrimazole 10 mg troc active Not Available Not Available Not Available budesonide 0.5 mg/2ml susp active Not Available Not Available Not Available spiriva respimat 2.5 mcg/act aers active Not Available Not Avail able Not Available prednisone 10 mg tabs active Not Available Not Available Not Available levofloxacin 500 mg tabs active Not Available Not Available Not Available aripiprazole 2 mg tabs active Not Available Not Available Not Available cefuroxime axetil 500 mg tabs active Not Available Not Available Not Available cyclobenzaprine hcl 10 mg tabs active Not Available Not Available N ot Available fondaparinux sodium 2.5 mg/0.5ml soln active Not Available Not Avai lable Not Available sertraline hcl 100 mg tabs active Not Available Not Available Not Available omeprazole 20 mg cpdr active Not Available Not Available Not Available doxepin hcl 50 mg caps active Not Available Not Available Not Available oxycodone/acetamino phen 5-325 mg tabs active Not Available Not Keara ilable Not Available doxepin hcl 10 mg caps active Not Available Not Available Not Available cetirizine hcl 10 mg tabs active Not Available Not Available Not Available cvs d3 2000 unit caps active Not Available Not Available Not Available lactulose 10 gm/15ml soln active Not Available Not Available Not Available lorazepam 0.5 mg tabs active Not Available Not Available Not Available doxepin hcl 25 mg caps active Not Available Not Available Not Available methylprednisolone dose pack 4 mg tabs active Not Available Not Av ailable Not Available lyrica 50 mg caps active Not Available Not Available Not Available fluconazole 100 mg tabs active Not Available Not Available Not Available polyethylene glycol 3350 powd active Not Available Not Available No t Available cvs nicotine transdermal system 14mg/24hr pt24 active Not Available Not Availab le Not Available carafate 1 gm/10ml susp active Not Available Not Available Not Available gabapentin 100 mg caps active Not Available Not Available Not Available hydrocodone bitartrate/acetamin ophen 5-300 mg tabs active Not Available Not Av ailable Not Available cvs nts step 1 21 mg/24hr pt24 active Not Available Not Available Not Available doxepin hcl 75 mg caps active Not Available Not Available Not Available azithromycin 500 mg tabs active Not Available Not Available Not Available albuterol sulfate 1.25 mg/3ml nebu active Not Available Not Avail able Not Available lorazepam 1 mg tabs active Not Availab le Not Available Not Available morphine sulfate er 15 mg tbcr active Not Available Not Available N ot Available gabapentin 300 mg caps active Not Available Not Available Not Available venlafaxine hcl er 37.5 mg cp24 active Not Available Not Available Not Available cvs nicotine 7 mg/24hr pt24 active Not Available Not Available Not Available ipratropium bromide/albuterol sulfate 0.5-2.5 (3) mg/3ml soln active Not Available Not Available Not Available sulfamethoxazole/tr imethoprim ds 800-160 mg tabs active Not Available Not Availa ble Not Available proair respiclick 108 (90 base) mcg/act aepb active Not Available Not Available Not Available sertraline hcl 50 mg tabs active Not Available Not Available Not Available hydrocodone/acetami nophen 5-325 mgtabs active Not Available Not Av ailable Not Available nystatin 372896 unit/ml susp active Not Available Not Available Not Available zolpidem tartrate 5 mg tabs active Not Available Not Available Not Available gabapentin 600 mg tabs active Not Available Not Available Not Available proair hfa 108 (90 base) mcg/act aers active Not Available Not Keara ilable Not Available cefuroxime axetil 250 mg tabs active Not Available Not Available Not Available chantix 0.5 mg tabs active Not Availab le Not Available Not Available aripiprazole 5 mg tabs active Not Available Not Available Not Available sertraline 100 mg tablet active Not Available Not Available Not Available omeprazole 20 mg capsule,delayed release active Not Available Not Available Not Available Vitals Date Recorded Body height Body mass index (BMI) Body weight Systolic And Diastolic Provider Name and Address Organization Details Last Updated DateTime 05/04/2015 160.02 cm 31.5 kg/m2 53148.441 86 g 124/76 mm[Hg] Bhavesh Rushing [place] - Dr. Pravin Booker 05/04/2015 14:49:02 Date Recorded Body height Body mass index (BMI) Body weight Systolic And Diastolic Provider Name and Address Organization Details Last Updated DateTime 06/23/2015 154.94 cm 35.9 kg/m2 88933.550 3 g 116/64 mm[Hg] Hemalatha Raza , [address],[facility] [address], [place], [address], [facility] - Dr. Pravin Booker 06/23/2015 14:12:35 Social History Question Answer Notes LastModified by Organizat ion Details LastModified Time Tobacco Smoking Status Current Some Day Smoker Not Available [facility] 06/07/2020 03:45:45 Which Of Your Hands Is Dominant? Right [id number] Information not available 06/07/2020 Live Alone Or With Others? With Others Information not available 05/04/2015 If Injured, Is Litigation Ongoing? 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 Family History Relationship Description Onset Age of this Age Resolved Age Notes LastModified by Organization Details LastModified Time Mother Asthma 89 [email or web address] Not availab le 06/23/2015 14:04:37 Medical History Condition Response Head Injury N Thyroid Disease N High Blood Pressure N Anxiety Y Emphysema/COPD N Spinal Cord Injury N Blood Clots/ DVT/ PE N Depression Y Bladder Infections N Pneumonia Y Hydrocephalus N Neck Pain N Peptic Ulcer Disease/GERD N Anemia N Back Pain Y Meningitis N Anesthesia Complications N Heart Attack ([place]) N Headaches/Migraines N Brain Aneurysm N Peripheral Neuropathy N Heart Arrhythmias N Diabetes N Bleeding Disorder N Obesity N Seizures/Epilepsy N AIDS/HIV N Cancer N Asthma N Sleep Apnea N Stroke/TIA N High Cholesterol N Hepatitis N Sickle Cell Disease N Heart Disease N Fibromyalgia N Brain or Spine Tumor N Heart Failure N Osteoporosis N Kidney Disease N Gynecological HistoryNo gynecological history recorded. Obstetrics History GPAL:G 0 P 0 0 0 0 Past Encounters Encounter ID Performer Location Encounter Start Date Encounter Closed Date Diagnosis/Indication Diagnosis SNOMED-CT Code Diagnosis ICD10 Code Diagnosis IMO Codes Diagnosis Note [id number] Pravin Booker MD Main Office [address] [place], [place] [address] 05/04/2015 14:08:42 05/04/2015 15:47:18 Lumbosacral spondylosis without myelopathy 97623869 Cervical s pondylosis without myelopathy 841511845 [id number] Pravin Booker MD Main Office [address] [place] [phone] 06/23/2015 13:18:24 06/23/2015 14:36:26 Cervical spondylosis without myelopathy 074133890 M47.812 Lumbosacra l spondylosis with radiculopathy 555918625 M47.27 Health Concerns Section Related Observation LastModified by Organization Detai ls LastModified Time None Recorded Concern Status LastModified by Organization Details LastModified Time None Recorded Advance Directives Directive None Recorded Payers Insurance Date Sequence Insurance Name Policy Number Policy Lamar Covered Member ID Lamar Member ID Guarantor Name 09/18/2015 1 [facility] Allie Caldera [id number] Allie Caldera Notes Date Note Type Note Provider Name and Address Organization Details Recorded Time 05/04/2015 text/html Back Pain/Disc DiseaseReported by PatientHPIFor back pain, patient reportsworse with standing,worse with exercise,midline, andparaspinous(worst bending). For leg pain, patient reportssciatica - back of leg. For leg symptoms, patient reportsprogressive leg weaknessandleft leg weakness. For pain duration, patient reports6 months. For bladder, patient reportsnone. For bowel, patient reportsnone. For treatment, patient reportspt/otandsteroi ds. For coordination, patient reportsnormal.chronic low back pain with new severe back leg and pain for 6 months Pravin Booker MD [address] [facility],[address] [facility], [place], [address], [facility] - Dr. Pravin Booker 05/05/2015 15:06:15 06/23/2015 text/html Back Pain/Disc DiseaseReported by PatientHPIFor back pain, patient reportsworse with standing,worse with exercise,midline, andparaspinous(worst bending). For leg pain, patient reportssciatica - back of leg. For leg symptoms, patient reportsprogressive leg weaknessandleft leg weakness. For pain duration, patient reports6 months. For bladder, patient reportsnone. For bowel, patient reportsnone. For treatment, patient reportspt/otandsteroi ds. For coordination, patient reportsnormal.chronic low back pain with new severe back leg and pain for 6 months Pravin Booker MD [address] [facility],[address] [facility], [place], [address], [facility] - Dr. Pravin Booker 06/23/2015 14:36:10 OBGyn Episode No OBEpisode recorded.
--- OUTSIDE RECORDS SUMMARY | 2025-06-05 19:46 | XMS_ITS | Encounter Summary ---
Author Organization [facility] Address [address] [place] [address] Care Team Providers Care Substance Abuse Therapist Name Role Phone Ammon Villagomez MD Primary Care Provider Shania Reyes MD Unavailable Gely Greene MD Primary Care Provider [phone] Reason for Referral * Diagnostic (Routine) - Closed Specialty Diagnoses / Procedures Referred By Contac t Referred To Contact Radiology Diagnoses Pain Procedures X-ray lumbar spine 2 or 3 views Robert Roberts DC [address] [place] [address] Phone: tel: fax: Referral ID Status Reason Start Date Expiration Date Visits Re quested Visits Authorized [id number] Closed 09/14/2020 12/12/2021 1 1 Encounter Details Date Type Department Care Team (Late st Contact Info) Description 09/14/2020 Ancillary Orders [facility] [address] [place] [phone] Robert Roberts DC [address] [place] [address] Pain Social History Tobacco Use Types Packs/Day Years [...] as of this encounter Results * X-ray lumbar spine 2 or 3 views (09/14/2020 1:53 PM EST) Anatomical Region Laterality Modality T-spine, Ortho L-spine Digital R adiography 09/14/2020 3:17 PM EST Impressions 09/14/2020 3:19 PM EST IMPRESSION: Limited examination demonstrating dextroscoliosis and multilevel degenerative change. Narrative 09/14/2020 3:19 PM EST HISTORY: /Pain TECHNIQUE: 3 views of the lumbar spine were acquired. COMPARISON: 03/12/2019 lumbar spine MRI FINDINGS: The examination is limited by patient motion. Vertebrae: There is mild dextroscoliotic curvature of the lumbar spine. No spondylolisthesis. Vertebral body height is grossly preserved within limits of this exam. There is multilevel osteophytosis. Disc Spaces: There is multilevel disc space height loss and degenerative endplate change most prominent at L4-L5 and L5-S1. Facet Joints: Normally aligned. No definite pars defects. There is multilevel degenerative facet arthropathy. Paravertebral Tissues: No acute abnormality. Procedure Note Eleno Ball MD - 09/14/2020 HISTORY: /Pain TECHNIQUE: 3 views of the lumbar spine were acquired. COMPARISON: 03/12/2019 lumbar spine MRI FINDINGS: The examination is limited by patient motion. Vertebrae: There is mild dextroscoliotic curvature of the lumbar spine. Nospondylolisthesis. Vertebral body height is grossly preserved withinlimits of this exam. There is multilevel osteophytosis. Disc Spaces: There is multilevel disc space height loss and degenerativeendplate change most prominent at L4-L5 and L5-S1. Facet Joints: Normally aligned. No definite pars defects. There ismultilevel degenerative facet arthropathy. Paravertebral Tissues: No acute abnormality. IMPRESSION: Limited examination demonstrating dextroscoliosis and multileveldegenerative change. us Robert Roberts DC IMG DIAGNOSTIC IMAGING ORDERABLE S Final Result documented in this encounter Visit Diagnoses Diagnosis Pain Generalized pain Pain Generalized pain documented in this encounter Additional Health Concerns Infection Onset Date Last Indicated Resolved Time PUI COVID 08/28/2023 08/28/2023 08/28/2023 5:43 PM EST documented as of this encounter Care Teams Substance Abuse Therapist Relationship Specialty Start Date End Date Ammon Villagomez MD [address] [place] [address] PCP - General 04/23/14 07/09/22 Gely Greene MD [address] [facility] [address] PCP - General Internal Medicine 07/10/22 Shania Reyes MD [address] [place] [address] [place] [address] Physician Hematology and Oncology 08/19/18 documented as of this encounter
--- OUTSIDE RECORDS SUMMARY | 2025-06-05 19:46 | XMS_ITS | Encounter Summary ---
Author Organization [facility] Address [address] [place] [address] Care Team Providers Care Tree Chipper Name Role Phone Ammon Villagomez MD Primary Care Provider Shania Reyes MD Unavailable Gely Greene MD Primary Care Provider Reason for Referral * Diagnostic (Routine) - Closed Specialty Diagnoses / Procedures Referred By Yash wu Referred To Contact Radiology Diagnoses Cough Right knee pain Procedures X-ray knee right 1 or 2 views X-ray knee right 3 views Gely Greene MD [address] [place] Phone: tel: fax: Referral ID Status Reason Start Date Expiration Date Visits Re quested Visits Authorized [id number] Closed 11/08/2020 02/07/2022 1 1 Encounter Details Date Type Department Care Team (Late st Contact Info) Description 11/08/2020 Ancillary Orders [facility] - [address] [address] Gely Greene MD [address] [place], [place] Cough; Right knee pain Social History Tobacco Use Types Packs/Day [...] this encounter Results * X-ray knee right 1 or 2 views (11/08/2020 12:16 PM EDT) Anatomical Region Laterality Modality Thigh, Ortho Knee Digital Radiog cody 11/08/2020 2:24 PM EDT Impressions 11/08/2020 2:27 PM EDT IMPRESSION: No acute cardiopulmonary process FINDINGS: XR KNEE 1 OR 2 VW RIGHT There is no displaced fracture. There is a right total knee arthroplasty with no evidence of a hardware complication. There is no joint effusion. IMPRESSION: No displaced fracture or malalignment. Narrative 11/08/2020 2:27 PM EDT CLINICAL INFORMATION: /Cough/Right knee pain COMPARISON: Most recent prior examination FINDINGS: XR CHEST 2 VW The cardiomediastinal silhouette appears normal. The lungs are grossly clear. There is no pleural effusion or pneumothorax. There is no displaced fracture. The soft tissues are unremarkable. Procedure Note Aric Farfan MD - 11/08/2020 CLINICAL INFORMATION: /Cough/Right knee pain COMPARISON: Most recent prior examination FINDINGS: XR CHEST 2 VW The cardiomediastinal silhouette appears normal. The lungs are grossly clear. There is no pleural effusion or pneumothorax. There is no displaced fracture. The soft tissues are unremarkable. IMPRESSION: No acute cardiopulmonary process FINDINGS: XR KNEE 1 OR 2 VW RIGHT There is no displaced fracture. There is a right total knee arthroplasty with no evidence of a hardwarecomplication. There is no joint effusion. IMPRESSION: No displaced fracture or malalignment. us Gely Greene MD IMG DIAGNOSTIC IMAGING ORDERA BLES Final Result documented in this encounter Visit Diagnoses Diagnosis Cough Right knee pain Pain in joint, lower leg Cough Right knee pain Pain in joint, lower leg documented in this encounter Additional Health Concerns Infection Onset Date Last Indicated Resolved Time PUI COVID 08/28/2023 08/28/2023 08/28/2023 5:43 PM EST documented as of this encounter Care Teams Tree Chipper Relationship Specialty Start Date End Date Ammon Villagomez MD [address] [facility] [place] [address] PCP - General 04/23/14 07/09/22 Gely Greene MD [address] [place] [address] PCP - General Internal Medicine 07/10/22 Shania Reyes MD [address] [place] [address] [place] [address] Physician Hematology and Oncology 08/19/18 documented as of this encounter
--- OUTSIDE RECORDS SUMMARY | 2025-06-05 19:46 | XMS_ITS | Encounter Summary ---
Author Organization [facility] Address [address] [place] [address] Care Team Providers Care Pancake Professional Name Role Phone Ammon Villagomez MD Primary Care Provider Colin Hoskins MD Unavailable [phone] Shania Reyes MD Unavailable Gely Greene MD Primary Care Provider Encounter Details Date Type Department Care Team (Late st Contact Info) Description 01/11/2017 Procedure [facility] - [address] [id number] Social History Tobacco Use Types [...] - Inhaled Oxygen Concentration - - Weight 88.5 kg (195 lb) 01/11/2017 6:52 PM EDT Height 160 cm (5' 3 ) 01/11/2017 6:52 PM EDT Body Mass Index 34.54 01/11/2017 6:52 PM EDT documented in this encounter Plan of [...] documented as of this encounter Care Teams Pancake Professional Relationship Specialty Start Date End Date Ammon Villagomez MD [address] [place] [address] PCP - General 04/23/14 07/09/22 Colin Hoskins MD [address] [place] [address] PCP - Hematology/Oncology Hematology and Oncology 11/18/17 09/11/18 Gely Greene MD [address] [place] [address] PCP - General Internal Medicine 07/10/22 Shania Reyes MD [address] [place] [address] [place] [address] Physician Hematology and Oncology 08/19/18 documented as of this encounter
--- OUTSIDE RECORDS SUMMARY | 2025-06-05 19:46 | XMS_ITS | Encounter Summary ---
Author Organization [facility] Address [address] [place] [address] Care Team Providers Care Sand Drier Name Role Phone Ammon Villagomez MD Primary Care Provider [phone] Shania Reyes MD Unavailable Gely Greene MD Primary Care Provider [phone] Encounter Details Date Type Department Care Team (Late st Contact Info) Description 02/08/2020 Lab Requisition [facility] [address] [place], [place] [id number] Ammon Villagomez MD [address] [place] [address] Major depressive disorder, single episode, unspecified; Hyperlipidemia, unspecified; Lymphocytosis (symptomatic) Social History Tobacco Use Types Packs/Day Years [...] Procedure Name Priority Date/Time Associated Diagnosis Comments TSH WITH REFLEX TO FREE T4 Routine 02/09/2020 9:00 AM EDT Major depressive disorder, single episode, unspecified Hyperlipidemia, unspecified Lymphocytosis (symptomatic) LACTATE DEHYDROGENASE Routine 02/09/2020 9:00 AM EDT Major depressive disorder, single episode, unspecified Hyperlipidemia, unspecified Lymphocytosis (symptomatic) CK Routine 02/09/2020 9:00 AM EDT Major depressive disorder, single episode, unspecified Hyperlipidemia, unspecified Lymphocytosis (symptomatic) LIPID PANEL Routine 02/09/2020 9:00 AM EDT Major depressive disorder, single episode, unspecified Hyperlipidemia, unspecified Lymphocytosis (symptomatic) COMPREHENSIVE METABOLIC PANEL Routine 02/09/2020 9:00 AM EDT Major depressive disorder, single episode, unspecified Hyperlipidemia, unspecified Lymphocytosis (symptomatic) MANUAL DIFFERENTIAL Routine 02/09/2020 7 :40 AM EDT Major depressive disorder, single episode, unspecified Hyperlipidemia, unspecified Lymphocytosis (symptomatic) CBC AND AUTO DIFFERENTIAL Routine 02/09/2020 7:40 AM EDT Major depressive disorder, single episode, unspecified Hyperlipidemia, unspecified Lymphocytosis (symptomatic) FOLATE Routine 02/09/2020 7:40 AM EDT Major depressive disorder, single episode, unspecified Hyperlipidemia, unspecified Lymphocytosis (symptomatic) VITAMIN B12 Routine 02/09/2020 7:40 AM EDT Major depressive disorder, single episode, unspecified Hyperlipidemia, unspecified Lymphocytosis (symptomatic) documented in this encounter Results * Lactate Dehydrogenase (02/09/2020 9:00 AM EDT) LD 206 100 - 245 IU/L 02/09/2020 3:02 PM EDT [facility] Blood specimen (specimen) Venipuncture / Unknown 02/09/2020 9:00 AM EDT 02/09/2020 1:51 PM EDT us Ammon Villagomez MD LAB BLOOD ORDERABLES Final R esult Performing Organization Address [facility] Co de Phone Number [facility] [address] [place] [address] * CK (02/09/2020 9:00 AM EDT) Total CPK 43 30 - 130 IU/L 02/09/2020 3:02 PM EDT [facility] Blood specimen (specimen) Venipuncture / Unknown 02/09/2020 9:00 AM EDT 02/09/2020 1:51 PM EDT us Ammon Villagomez MD LAB BLOOD ORDERABLES Final R esult Performing Organization Address [facility] Phone Number [facility] [address] [place] [address] * TSH with reflex to Free T4 (02/09/2020 9:00 AM EDT) Pathologist [facility] TSH 0.433 0.350 - 5.500 uIU/mL 02/09/2020 3:30 PM EDT [facility] Blood specimen (specimen) Venipuncture / Unknown 02/09/2020 9:00 AM EDT 02/09/2020 1:51 PM EDT Result Samantha Villagomez MD LAB BLOOD ORDERABLES Final R esult Performing Organization Address [facility] Phone Number [facility] [address] [place] [address] * (ABNORMAL) Lipid panel (02/09/2020 9:00 AM EDT) Cholesterol 152 0 - 199 mg/dL 02/09/2020 3:01 PM EDT [facility] Triglycerides 174 10 - 200 mg/dL 02/09/2020 3:01 PM EDT [facility] HDL 48.6(L) >=50.0 mg/dL 02/09/2020 3:01 PM EDT [facility] LDL Calculated 69 0 - 100 mg/dL 02/09/2020 3:01 PM EDT [facility] Cardiac Risk Factor 3.1 0.0 - 4.4 02/09/2020 3:01 PM EDT [facility] Blood specimen (specimen) Venipuncture / Unknown 02/09/2020 9:00 AM EDT 02/09/2020 1:51 PM EDT Narrative [facility] - 02/09/2020 3:01 PM EDT Cardiac Risk Factor: Males Females 2x Average Risk 9.6 7.1 3x Average Risk 23.4 11.0 Ammon Villagomez MD LAB BLOOD ORDERABLES Final R esult [facility] [address] [place], [place] * (ABNORMAL) Comprehensive metabolic panel (02/09/2020 9:00 AM EDT) Sodium 141 137 - 147 mEq/L 02/09/2020 3:01 PM EDT [facility] Potassium 3.5 3.5 - 5.4 mEq/L 02/09/2020 3:01 PM EDT [facility] Chloride 98 96 - 107 mEq/L 02/09/2020 3:01 PM EDT [facility] CO2 25 24 - 34 mEq/L 02/09/2020 3:01 PM EDT [facility] Anion Gap 18(H) 4 - 15 mEq/L 02/09/2020 3:01 PM EDT [facility] Glucose 92 70 - 100 mg/dL 02/09/2020 3:01 PM EDT [facility] Creatinine 0.56 0.50 - 1.30 mg/dL 02/09/2020 3:01 PM EDT [facility] eGFR >60 60 - 115 mL/min 02/09/2020 3:01 PM EDT [facility] BUN 12 6 - 26 mg/dL 02/09/2020 3:01 PM EDT [facility] Calcium 9.2 8.7 - 10.5 mg/dL 02/09/2020 3:01 PM EDT [facility] Total Protein 7.0 6.4 - 8.6 g/dL 02/09/2020 3:01 PM EDT [facility] Albumin 4.0 3.4 - 4.8 g/dL 02/09/2020 3:01 PM EDT [facility] A/G Ratio 1.3 1.0 - 2.3 02/09/2020 3:01 PM EDT [facility] Total Bilirubin 0.2 0.2 - 1.2 mg/dL 02/09/2020 3:01 PM EDT [facility] AST 16 0 - 40 U/L 02/09/2020 3:01 PM EDT [facility] Alkaline Phosphatase 102 40 - 150 IU/L 02/09/2020 3:01 PM EDT [facility] ALT 14 0 - 45 U/L 02/09/2020 3:01 PM EDT [facility] Blood specimen (specimen) Venipuncture / Unknown 02/09/2020 9:00 AM EDT 02/09/2020 1:51 PM EDT Ammon Villagomez MD LAB BLOOD ORDERABLES Final R esult [facility] [address] [place], [place] * (ABNORMAL) Manual Differential (02/09/2020 7:40 AM EDT) WBC 6.2 10*3/ L 02/09/2020 3:32 PM EDT [facility] Neut % 20(L) 40 - 85 % 02/09/2020 3:32 PM EDT [facility] Lymph % 70(H) 15 - 45 % 02/09/2020 3:32 PM EDT [facility] [place] % 5 0 - 12 % 02/09/2020 3:32 PM EDT [facility] Eos % 3 0 - 7 % 02/09/2020 3:32 PM EDT [facility] Baso % 2 0 - 2 % 02/09/2020 3:32 PM EDT [facility] Total Cells Count 100 02/09/2020 3:32 PM EDT [facility] RBC Morphology Normal Normal 02/09/2020 3:32 PM EDT [facility] Platelet Estimate Normal Normal 02/09/2020 3:32 PM EDT [facility] Blood specimen (specimen) Venipuncture / Unknown 02/09/2020 7:40 AM EDT 02/09/2020 1:52 PM EDT Narrative [facility] - 02/09/2020 3:32 PM EDT History of lymphocytosis. us Ammon Villagomez MD LAB BLOOD ORDERABLES Final R esult Performing Organization Address City/[facility] Co de Phone Number [facility] [address] [place] [address] * Folate (02/09/2020 7:40 AM EDT) Folate 15.3 3.4 - 20.0 ng/mL 02/09/2020 3:24 PM EDT [facility] Blood specimen (specimen) Venipuncture / Unknown 02/09/2020 7:40 AM EDT 02/09/2020 1:52 PM EDT us Ammon Villagomez MD LAB BLOOD ORDERABLES Final R esult Performing Organization Address [facility] Co de Phone Number [facility] [address] [place] [address] * (ABNORMAL) Vitamin B12 (02/09/2020 7:40 AM EDT) Vitamin B12 1,281(H) 232-1,245 pg/mL 02/09/2020 3:24 PM EDT [facility] Blood specimen (specimen) Venipuncture / Unknown 02/09/2020 7:40 AM EDT 02/09/2020 1:52 PM EDT us Ammon Villagomez MD LAB BLOOD ORDERABLES Final R esult Performing Organization Address [facility] Co de Phone Number [facility] [address] [place] [address] * CBC and Auto Differential (02/09/2020 7:40 AM EDT) WBC 6.2 4.8 - 11.2 10*3/ L 02/09/2020 2:41 PM EDT [facility] RBC 4.47 3.60 - 5.40 10*6/ L 02/09/2020 2:41 PM EDT [facility] HGB 14.1 12.0 - 15.8 g/dL 02/09/2020 2:41 PM EDT [facility] HCT 41.2 36.0 - 48.0 % 02/09/2020 2:41 PM EDT [facility] MCV 92.2 82.0 - 98.0 fL 02/09/2020 2:41 PM EDT [facility] MCH 31.6 27.0 - 35.0 pg 02/09/2020 2:41 PM EDT [facility] MCHC 34.3 32.0 - 37.0 g/dL 02/09/2020 2:41 PM EDT [facility] RDW 13.8 12.0 - 15.0 % 02/09/2020 2:41 PM EDT [facility] PLT 383 150 - 400 10*3/ L 02/09/2020 2:41 PM EDT [facility] MPV 8.4 7.0 - 14.0 fL 02/09/2020 2:41 PM EDT [facility] NRBC% 0 0 /100 WBC /100 WBC 02/09/2020 2:41 PM EDT [facility] Add Manual Diff Yes Per Protocol 02/09/2020 2:41 PM EDT [facility] Blood specimen (specimen) Venipuncture / Unknown 02/09/2020 7:40 AM EDT 02/09/2020 1:52 PM EDT us Ammon Villagomez MD LAB BLOOD ORDERABLES Final R esult [facility] [address] [place], [place] documented in this encounter Visit Diagnoses Diagnosis Major depressive disorder, single episode, unspecified Hyperlipidemia, unspecified Lymphocytosis (symptomatic) documented in this encounter Additional Health Concerns Infection Onset Date Last Indicated Resolved Time PUI COVID 05/24/2020 05/24/202005/2505/25/2020 11:4 6 PM EDT PUI COVID 06/24/2020 06/24/2020 06/25/2020 11:4 7 PM EST PUI COVID 08/28/2023 08/28/2023 08/28/2023 5:43 PM EST documented as of this encounter Care Teams Sand Drier Relationship Specialty Start Date End Date Ammon Villagomez MD [address] [place] [address] PCP - General 04/23/14 07/09/22 Gely Greene MD [address] [place] [address] PCP - General Internal Medicine 07/10/22 Shania Reyes MD [address] [place] [address] [place] [address] Physician Hematology and Oncology 08/19/18 documented as of this encounter
--- OUTSIDE RECORDS SUMMARY | 2025-06-05 19:46 | XMS_ITS | Clinical Summary ---
Author Organization [facility] Address [address] [place] [address] Care Team Providers Care Fence Installer Helper Name Role Phone Ammon Villagomez MD Primary Care Provider [phone] Allergies Active Allergy Reactions Criticality Noted Date Comments Acetaminophen 05/19/2024 Other Reaction(s): Unknown Oxycodone 05/19/2024 Other Reaction(s): CONFUSION Pregabalin 05/19/2024 Other Reaction(s): CONFUSION Varenicline 05/19/2024 Other Reaction(s): CONFUSION Medications ARIPiprazole (ABILIFY) 5 MG tablet Take 1 (one) tablet (5 mg total) by mouth once daily. Active albuterol (PROAIR HFA) 90 mcg/actuation HFA inhaler Inhale 1 (one) puff by mouth every 4 (four) hours as needed. Active aspirin 81 mg cap Take 81 mg by mouth once daily. Active CALCIUM CARBONATE-VITAM IN D3 ORAL Take 250 mg by mouth once daily. Active cloNIDine HCL (CATAPRES) 0.1 MG tablet Take 1 (one) tablet (0.1 mg total) by mouth at bedtime. 04/03/2025 Active gabapentin (NEURONTIN) 300 MG capsule Take 1 (one) capsule (300 mg total) by mouth 3 (three) times a day. Active levothyroxine (SYNTHROID) 25 MCG tablet Take 1 (one) tablet (25 mcg total) by mouth once daily. 04/11/2025 Active LORazepam (ATIVAN) 0.5 MG tablet Take 1 (one) tablet (0.5 mg total) by mouth 2 (two) times a day as needed. Active metoprolol succinate (TOPROL-XL) 25 MG 24 hr tablet Take 1 (one) tablet (25 mg total) by mouth once daily. Active venlafaxine (EFFEXOR-XR) 150 MG 24 hr capsule Take 1 (one) capsule (150 mg total) by mouth once daily. Active hydrocortisone (CORTEF) 10 MG tablet Take 1 (one) tablet (10 mg total) by mouth at bedtime. Active Active Problems Problem Noted Date Diagnosed Date Abnormal TSH 03/12/2025 Acute respiratory failure 03/12/2025 Adrenal insufficiency 03/12/2025 Atypical chest pain 03/12/2025 Chronic headaches 03/12/2025 COPD (chronic obstructive pulmonary disease) 03/2025 Depression with anxiety 03/12/2025 COVID-19 03/12/2025 Post-traumatic stress disorder, unspecified 03/2025 Dizziness 03/12/2025 Gait instability 03/12/2025 Hyperlipidemia 03/12/2025 Lymphocytosis 03/12/2025 Pre-diabetes 03/12/2025 Personality disorder, unspecified 03/12/2025 S/P arthroscopy of right knee 03/12/2025 S/P right unicompartmental knee replacement 03/2025 Suicidal ideation 03/12/2025 Weakness 03/12/2025 Chronic recurrent major depressive disorder 07/06 Encounters Date Type Department Care Team Description 06/04/2025 12:34 PM EDT - 06/05/2025 5:07 PM EDT Emergency [facility] Emergency Medicine [address] [place] [id number] Ritchie Richardson MD Thomas, James, MD Wilson, Connor, MD Volk, Jill, DO Sucov, Andrew, MD Suicidal ideation (Primary Dx) [facility]charge [facility]position[facility] from Last 3 Months Social History Tobacco Use Types Packs/Day Years Used Date Smoking Tobacco: Every Day Cigarettes Tobacco Cessation:Ready to Q uit: Not Asked; Counseling Given: Not Answered Comments:light smoker [facility] Utilities Answer Date Recorded In the past 12 months has th e uFaber, gas, oil, or water [employer] threatened to shut off services in your [...] any time in the past 12 m [facility], were you homeless or living in a penitentiary (including now)? No 06/04/2025 Comments Unknown Sex and Gender Information Value Date Recorded Sex Assigned at Not on file Legal Sex Female 5:53 PM EDT Gender Identity Not on file Sexual Orientation Not on file Last Filed Vital Signs Vital Sign Reading [...] Mass Index 27.44 06/04/2025 12:25 PM EDT Plan of Treatment Health Maintenance Due Date Last Done Comments Bone Density (DXA) Scan 1951 HEPATITIS C SCREENING 1968 PNEUMOCOCCAL VACCINE: 50+ YEARS (1 of 2 - PCV) 1970 DTAP/TDAP/TD VACCINES (1 - Tdap) 1980 COLONOSCOPY (CRC) 1996 COLORECTAL CANCER SCREENING (CRC) 1996 CT COLONOGRAPHY (CRC) 1996 FIT-DNA (CRC) 1996 FIT/iFOBT (CRC) 1996 SIGMOIDOSCOPY (CRC) 1996 ZOSTER VACCINE (1 of 2) 2001 RSV IMMUNIZATION (1 - Risk 60-74 years 1-dose series) 2011 MAMMOGRAM 03/11/2021 03/11/2019 INFLUENZA VACCINE (#1) 2025 6, 05/27/2015 COVID-19 IMMUNIZATION ( - season) 2025 IPV VACCINES Aged Out No longer eligi ble based on patient's age to complete this topic MENINGOCOCCAL B VACCINE Aged Out No l onger eligible based on patient's age to complete this topic Procedures Procedure Name Priority Date/Time Associated Diagnosis Comments ECG 12-LEAD STAT 06/05/2025 10:15 AM EDT URINALYSIS WITH REFLEX TO CULTURE Routine 06/04/2025 5:42 PM EDT CONVERSION BUPRENORPHINE SUBOXONE SCREEN Routine 06/04/2025 5:42 PM EDT URINE DRUG SCREEN STAT 06/04/2025 5:4 2 PM EDT TYPE AND SCREEN 3 CELL Routine 2:00 PM EDT T4, FREE STAT 06/04/2025 1:50 PM EDT SALICYLATE LEVEL STAT 06/04/2025 1:50 PM EDT ACETAMINOPHEN LEVEL STAT 06/04/2025 1 :50 PM EDT ETHANOL LEVEL STAT 06/04/2025 1:50 PM EDT TSH REFLEX STAT 06/04/2025 1:50 PM EDT BASIC METABOLIC PANEL STAT 06/04/2025 1:50 PM EDT CBC WITH DIFF STAT 06/04/2025 1:50 PM EDT from Last 3 Months Results * (ABNORMAL) Urinalysis with reflex to culture (06/04/2025 5:42 PM EDT) Color, Ur Yellow yellow 06/04/2025 5:51 PM EDT [facility] Appearance, Ur Clear slightly cloudy 06/04/2025 5:51 PM EDT [facility] Glucose, Ur negative negative mg/dL 06/04/2025 5:51 PM EDT [facility] Bilirubin, Ur negative negative mg/dL 06/04/2025 5:51 PM EDT [facility] Ketones, Ur negative negative mg/dL 06/04/2025 5:51 PM EDT [facility] Specific [place], Ur <=1.005(A) 1.010 - 1.030 06/04/2025 5:51 PM EDT [facility] Blood, Ur negative negative mg/dL 06/04/2025 5:51 PM EDT [facility] pH, Ur 7.0 5.0 - 8.0 06/04/2025 5:51 PM EDT [facility] Protein, Ur negative negative mg/dL 06/04/2025 5:51 PM EDT [facility] Urobilinogen, Ur 0.2 normal E.U./dL 06/04/2025 5:51 PM EDT [facility] Nitrite Level, Ur negative negative 06/04/2025 5:51 PM EDT [facility] Leukocytes Est, Ur negative negative mg/dL 06/04/2025 5:51 PM EDT [facility] 06/04/2025 5:42 PM EDT 06/04/2025 5:44 PM EDT us Libby PÉREZ URINE ORDERABLES Final Resul t Performing Organization Address City/[facility] Co de Phone Number [facility] [address] [place] [address], [facility] [address] [place] [address] * Urine Drug Screen (06/04/2025 5:42 PM EDT) Amphetamine Scrn, Ur None Detected 06/04/2025 9:14 PM EDT [facility] Benzodiazepine Screen, Urine None Detected 06/04/2025 9:14 PM EDT [facility] Cannabinoid Screen, Urine None Detected 06/04/2025 9:14 PM EDT [facility] Cocaine Screen, Ur None Detected 06/04/2025 9:14 PM EDT [facility] Fentanyl Screen, Urine None Detected 06/04/2025 9:14 PM EDT [facility] Comment: This test was developed and its performance characteristics determined by the [facility]. It has not been cleared or approved by the [place] Food and Drug Administration but the [place] regulations permit its development under the laboratory license. This test and method is defined in the clinical lab guide and should not be regarded as investigational or research use only. Methadone Screen, Urine None Detected 06/04/2025 9:14 PM EDT [facility] Opiate Screen, Urine None Detected 06/04/2025 9:14 PM EDT [facility] Comment: Note: Drug of abuse immunoassay [...] Ur None Detected 06/04/2025 9:14 PM EDT [facility] Urine 06/04/2025 5:42 PM EDT 06/04/2025 8:57 PM EDT us Libby PÉREZ URINE ORDERABLES Final Resul t Performing Organization Address City/[facility]/ZIP Co de Phone Number [facility] [address] [place] [address], [facility] [address] [place] [address] * Buprenorphine Suboxone Screen (06/04/2025 5:42 PM EDT) Buprenorphine Suboxone Scrn None Detected 06/04/2025 9:14 PM EDT [facility] 06/04/2025 5:42 PM EDT 06/04/2025 8:57 PM EDT us Libby PÉREZ LAB BLOOD ORDERABLES Final R esult Performing Organization Address City/[facility]/ZIP Co de Phone Number [facility] [address] [place] [phone], [facility] [address] [place] [address] * Type and Screen 3 Cell (06/04/2025 2:00 PM EDT) ABORh Type A POS 06/04/2025 2:25 PM EDT [facility] Antibody Screen 3 Cells NEG 06/04/2025 2:51 PM EDT [facility] 06/04/2025 2:00 PM EDT 06/04/2025 2:08 PM EDT us Ritchie Richardson MD BLOOD BANK TEST ORDERABLES Yanet l Result Performing Organization Address City/[facility]/ZIP Co de Phone Number [facility] [address] [place] [address], [facility] [address] [place] [address] * Basic Metabolic Panel (06/04/2025 1:50 PM EDT) Glucose 99 67 - 99 MG/DL 06/04/2025 2:32 PM EDT [facility] BUN 16 6 - 24 MG/DL 06/04/2025 2:32 PM EDT [facility] Creat Level 0.70 0.44 - 1.03 MG/DL 06/04/2025 2:32 PM EDT [facility] eGFR 91 >90 mL/min/1.7 3m exp2 06/04/2025 2:32 PM EDT [facility] Comment:Calculated using the CKD-epi 2020 race-free equation. BUN Creatinine Ratio 23 06/04/2025 2:32 PM EDT [facility] Sodium 141 135 - 145 mEq/L 06/04/2025 2:32 PM EDT [facility] Potassium 4.2 3.6 - 5.1 mEq/L 06/04/2025 2:32 PM EDT [facility] Chloride 103 98 - 110 mEq/L 06/04/2025 2:32 PM EDT [facility] CO2 25 20 - 29 mEq/L 06/04/2025 2:32 PM EDT [facility] Anion Gap 13 3 - 13 06/04/2025 2:32 PM EDT [facility] Calcium 9.2 8.4 - 10.2 MG/DL 06/04/2025 2:32 PM EDT [facility] Blood 06/04/2025 1:50 PM EDT 06/04/2025 1:56 PM EDT Lbiby PÉREZ LAB BLOOD ORDERABLES Final R esult [facility] [address] [place] [address], [facility] [address] [place] [address] * CBC WITH DIFF (06/04/2025 1:50 PM EDT) WBC 5.6 4.2 - 10.0 [id number]/L 06/04/2025 1:59 PM EDT [facility] RBC 4.33 3.80 - 5.10 r35iqi50/L 06/04/2025 1:59 PM EDT [facility] Hemoglobin 13.4 11.2 - 14.9 g/dL 06/04/2025 1:59 PM EDT [facility] Hematocrit 40.7 36.0 - 48.0 % 06/04/2025 1:59 PM EDT [facility] MCV 94.0 85.2 - 100.2 fL 06/04/2025 1:59 PM EDT [facility] MCH 30.9 27.0 - 32.4 pg 06/04/2025 1:59 PM EDT [facility] MCHC 32.9 29.5 - 34.2 g/dL 06/04/2025 1:59 PM EDT [facility] RDW 14.3 11.8 - 14.4 % 06/04/2025 1:59 PM EDT [facility] Platelets 333 168 - 382 z28lms0/L 06/04/2025 1:59 PM EDT [facility] MPV 10.0 9.6 - 12.5 fL 06/04/2025 1:59 PM EDT [facility] NRBC % 0.0 -1.0 - 0.0 % 06/04/2025 1:59 PM EDT [facility] NRBC (absolute) 0.0 t35ypa2/L 1:59 PM EDT [facility] Immature Granulocytes % 0.2 % 06/04/2025 1:59 PM EDT [facility] Immature Granulocytes (absolute) 0.0 0.0 - 0.1 j90edd3/L 06/04/2025 1:59 PM EDT [facility] Seg Neutrophil % 60.7 % 06/04/20 1:59 PM EDT [facility] Seg Neutrophil (absolute) 3.4 1.9 - 6.7 u43nrm2/L 06/04/2025 1:59 PM EDT [facility] Lymphocyte % 30.2 % 06/04/2025 1:59 PM EDT [facility] Lymphocyte (absolute) 1.7 1.0 - 3.3 y72ibt8/L 06/04/2025 1:59 PM EDT [facility] Monocyte % 7.5 % 06/04/2025 1:59 PM EDT [facility] Monocyte (absolute) 0.4 0.3 - 0.9 t15zyp5/L 06/04/2025 1:59 PM EDT [facility] Eosinophil % 0.9 % 06/04/2025 1:59 PM EDT [facility] Eosinophil (absolute) 0.1 0.0 - 0.4 t60suy4/L 06/04/2025 1:59 PM EDT [facility] Basophil % 0.5 % 06/04/2025 1:59 PM EDT [facility] Basophil (absolute) 0.0 0.0 - 0.1 u24zll9/L 06/04/2025 1:59 PM EDT [facility] 06/04/2025 1:50 PM EDT 06/04/2025 1:56 PM EDT Libby Negro PA LAB BLOOD ORDERABLES Final R esult Performing Organization Address City/[facility]/ZIP Co de Phone Number [facility] [address] [place] [address], [facility] [address] [place] [address] * (ABNORMAL) TSH Reflex (06/04/2025 1:50 PM EDT) TSH, High Sensitivity 0.198(L) 0.330 - 4.120 uIU/ML 06/04/2025 2:32 PM EDT [facility] Blood 06/04/2025 1:50 PM EDT 06/04/2025 1:56 PM EDT Libby PÉREZ LAB BLOOD ORDERABLES Final R esult Performing Organization Address City/[facility]/ZIP Co de Phone Number [facility] [address] [place] [address], [facility] [address] [place] [address] * T4, Free (06/04/2025 1:50 PM EDT) T4, Free 1.41 0.93 - 1.70 ng/dL 06/04/2025 4:46 PM EDT [facility] 06/04/2025 1:50 PM EDT 06/04/2025 1:56 PM EDT Libby Negro PA LAB BLOOD ORDERABLES Final R esult [facility] [address] [place] [address], [facility] [address] [place] [address] * Ethanol Level (06/04/2025 1:50 PM EDT) Ethanol Level Not Detected Not Detected MG/DL 06/04/2025 2:32 PM EDT [facility] Blood 06/04/2025 1:50 PM EDT 06/04/2025 1:56 PM EDT Libby PÉREZ LAB BLOOD ORDERABLES Final R esult Performing Organization Address City/[facility]/ZIP Co de Phone Number [facility] [address] [place] [address], [facility] [address] [place] [address] * Acetaminophen Level (06/04/2025 1:50 PM EDT) Acetaminophen Level <5 0 - 5 ug/mL 06/04/2025 2:32 PM EDT [facility] Comment:Acetaminophen Refere nce Range: Negative <5 ug/mL Blood 06/04/2025 1:50 PM EDT 06/04/2025 1:56 PM EDT Libby PÉREZ LAB BLOOD ORDERABLES Final R esult [facility] [address] [place] [address], [facility] [address] [place] [address] * (ABNORMAL) Salicylate Level (06/04/2025 1:50 PM EDT) Salicylate Level 1.0(A) MG/DL 06/04/2025 2:32 PM EDT [facility] Comment: Salicylate Reference Range: Negative <1.0 mg/dL Therapeutic Range: 2.0-20.0 mg/dL Blood 06/04/2025 1:50 PM EDT 06/04/2025 1:56 PM EDT Libby PÉREZ LAB BLOOD ORDERABLES Final R esult [facility] [address] [place] [address], [facility] [address] [place] [address] from Last 3 Months Insurance [employer] MEDICARE Care Teams Fence Installer Helper Relationship Specialty Start Date End Date Ammon Villagomez MD [address] [place] [address] PCP - General Internal Medicine 06/04/25
--- OUTSIDE RECORDS SUMMARY | 2025-06-05 19:46 | XMS_ITS | Encounter Summary ---
Author Organization [facility] Address [address] [place] [address] Care Team Providers Care Addiction Counselor Name Role Phone Ammon Villagomez MD Primary Care Provider Shania Reyes MD Unavailable Gely Greene MD Primary Care Provider [phone] Encounter Details Date Type Department Care Team (Late st Contact Info) Description 10/06/2020 Procedure Pass [facility] - [address] [address] Social History Tobacco Use Types [...] documented as of this encounter Care Teams Addiction Counselor Relationship Specialty Start Date End Date Ammon Villagomez MD [address] [place] [address] PCP - General 04/23/14 07/09/22 Gely Greene MD [address] [place] [address] [place] [address] PCP - General Internal Medicine 07/10/22 Shania Reyes MD [address] [place] [address] [place] [address] Physician Hematology and Oncology 08/19/18 documented as of this encounter
--- OUTSIDE RECORDS SUMMARY | 2025-06-05 19:46 | XMS_ITS | Encounter Summary ---
Author Organization [facility] Address [address] [place] [address] Care Team Providers Care Manager Student Services Name Role Phone Ammon Villagomez MD Primary Care Provider [phone] Colin Hoskins MD Unavailable [phone] Shania Reyes MD Unavailable Gely Greene MD Primary Care Provider Reason for Referral * Diagnostic (Routine) - Closed Specialty Diagnoses / Procedures Referred By Contac t Referred To Contact Radiology Diagnoses Cervicalgia Brachial neuritis Thoracic back pain Procedures X-ray thoracic spine 2 views Carl Ruiz DC [address] [place] [address] Phone: tel: fax: Referral ID Status Reason Start Date Expiration Date Visits Re quested Visits Authorized [id number] Closed 04/15/2017 04/15/2018 1 1 * Diagnostic (Routine) - Closed Specialty Diagnoses / Procedures Referred By Contac t Referred To Contact Radiology Diagnoses Cervicalgia Brachial neuritis Thoracic back pain Procedures X-ray cervical spine complete 4 or 5 views Carl Ruiz DC [address] [place] [address] Phone: tel: fax: Referral ID Status Reason Start Date Expiration Date Visits Re quested Visits Authorized [id number] Closed 04/15/2017 04/15/2018 1 1 Encounter Details Date Type Department Care Team (Late st Contact Info) Description 04/15/2017 Ancillary Orders [facility] [address] [place] [address] Carl Ruiz DC [address] [place], [place] Cervicalgia (Primary Dx); Brachial neuritis; Thoracic back pain Social History Tobacco Use Types Packs/Day [...] as of this encounter Results * X-ray thoracic spine 2 views (04/15/2017 4:21 PM EDT) Anatomical Region Laterality Modality C-spine, Ortho Spine Digital Rad iography 04/16/2017 10:2 2 AM EDT Narrative 04/17/2017 11:46 AM EDT HISTORY: Neck pain. Back pain. CERVICAL SPINE FIVE VIEWS No fracture identified. Exam demonstrates degenerative changes at each level from C3-4 to C6-7. There is slight retrolisthesis of C4 on C5 secondary to degenerative changes. Oblique views demonstrate bilateral neural foraminal stenosis at each level from C4-5 to C6-7. IMPRESSION Diffuse spondylosis of cervical spine with multilevel bilateral neural foraminal stenosis. THORACIC SPINE TWO VIEWS No fracture identified. Exam demonstrates degenerative changes at mid and lower thoracic disc levels. Bones are demineralized. IMPRESSION No fracture identified. Multilevel degenerative changes. Procedure Note Franklin Matthew MD - 04/17/2017 HISTORY: Neck pain. Back pain. CERVICAL SPINE FIVE VIEWS No fracture identified. Exam demonstrates degenerative changes at eachlevel from C3-4 to C6-7. There is slight retrolisthesis of C4 on [id number] to degenerative changes. Oblique views demonstrate bilateral neural foraminal stenosis at eachlevel from C4-5 to C6-7. IMPRESSION Diffuse spondylosis of cervical spine with multilevel bilateral neuralforaminal stenosis. THORACIC SPINE TWO VIEWS No fracture identified. Exam demonstrates degenerative changes at mid andlower thoracic disc levels. Bones are demineralized. IMPRESSION No fracture identified. Multilevel degenerative changes. Carl Ruiz DC [facility] ORDERABLE S Final Result * X-ray cervical spine complete 4 or 5 views (04/15/2017 4:21 PM EDT) Anatomical Region Laterality Modality C-spine, Ortho C-spine Digital R adiography 04/16/2017 10:2 2 AM EDT Narrative 04/17/2017 11:46 AM EDT HISTORY: Neck pain. Back pain. CERVICAL SPINE FIVE VIEWS No fracture identified. Exam demonstrates degenerative changes at each level from C3-4 to C6-7. There is slight retrolisthesis of C4 on C5 secondary to degenerative changes. Oblique views demonstrate bilateral neural foraminal stenosis at each level from C4-5 to C6-7. IMPRESSION Diffuse spondylosis of cervical spine with multilevel bilateral neural foraminal stenosis. THORACIC SPINE TWO VIEWS No fracture identified. Exam demonstrates degenerative changes at mid and lower thoracic disc levels. Bones are demineralized. IMPRESSION No fracture identified. Multilevel degenerative changes. Procedure Note Franklin Matthew MD - 04/17/2017 HISTORY: Neck pain. Back pain. CERVICAL SPINE FIVE VIEWS No fracture identified. Exam demonstrates degenerative changes at eachlevel from C3-4 to C6-7. There is slight retrolisthesis of C4 on [id number] to degenerative changes. Oblique views demonstrate bilateral neural foraminal stenosis at eachlevel from C4-5 to C6-7. IMPRESSION Diffuse spondylosis of cervical spine with multilevel bilateral neuralforaminal stenosis. THORACIC SPINE TWO VIEWS No fracture identified. Exam demonstrates degenerative changes at mid andlower thoracic disc levels. Bones are demineralized. IMPRESSION No fracture identified. Multilevel degenerative changes. Carl Ruiz DC [facility] ORDERABLE S Final Result documented in this encounter Visit Diagnoses Diagnosis Cervicalgia- Primary Brachial neuritis Brachial neuritis or radiculitis nos Thoracic back pain Pain in thoracic spine Cervicalgia Brachial neuritis Brachial neuritis or radiculitis nos Thoracic back pain Pain in thoracic spine documented in this encounter Additional Health Concerns Infection Onset Date Last Indicated Resolved Time PUI COVID 05/24/2020 05/24/2020 05/25/2020 11:4 6 PM EDT PUI COVID 06/24/2020 06/24/2020 06/25/2020 11:4 7 PM EST PUI COVID 08/28/2023 08/28/2023 08/28/2023 5:43 PM EST documented as of this encounter Care Teams Manager Student Services Relationship Specialty Start Date End Date Ammon Villagomez MD [address] [place] [address] PCP - General 04/23/14 07/09/22 Colin Hoskins MD [address] [place] [address] PCP - Hematology/Oncology Hematology and Oncology 11/18/17 09/11/18 Gely Greene MD [address] [facility] [place] [address] PCP - General Internal Medicine 07/10/22 Shania Reyes MD [address] [place] [address] [place] [address] Physician Hematology and Oncology 08/19/18 documented as of this encounter
--- OUTSIDE RECORDS SUMMARY | 2025-06-05 19:46 | XMS_ITS | Data Portability ---
Author Organization [facility], [place] [facility] - Address [address] [place] [address] Care Team Providers Care Wholesale Manager Name Role Phone MITALI WHELAN Primary Care Provider Assessment Encounter Date Assessment Date Assessment LastModified by Organization Details LastModified Time 09/09/2018 09/09/2018 Bilateral thyroid nodules under 1cm. No risk factors. No need to biopsy. follwowup with PCP. [email or web address] Not available 09/09/2018 12:55:08 Plan of Treatment Reminders Order Date Submit Date Provider Last Modified By Organization Details Last Modified Time Details Appointments None record ed. Lab None record ed. Referral None record ed. Procedures None record ed. Surgeries None record ed. Imaging None record ed. Medication Orders None record ed. Patient TargetsNo targets recorded. Patient InstructionsNo instructions recorded. Reason for Referral None Reported. Problems No Known Problems Procedures Surgical History Date Name Laterality Status Provider Name and Address Organization Details Recorded Time Tubal Ligation completed DEBBIE KUMAR [facility] 09/09/2018 10:19:45 Knee Surgery completed DEBBIE KUMAR [facility] 09/09/2018 10:19:55 Imaging Results None recorded. Procedure Notes None recorded. Medical Equipment None Reported. Allergies Allergen ID Allergen Name Allergen Category Reaction Reaction Severity Criticality Documentation Date Start Date Code Code System Note Provider Name and Address Organization Details Recorded Time 3008 acetamino phen / oxycodone medicatio n Not available Not available Not available 09/09/2018 16798 3 RxNorm DEBBIE benitez [facility] 9 10:18:39 3009 Lyrica medicatio n Not available Not available Not available 09/09/2018 87000 1 RxNorm DEBBIE benitez [facility] 9 10:18:44 3010 Chantix medicatio n Not available Not available Not available 09/09/2018 49218 0 RxNorm DEBBIE benitez [facility] 9 10:23:55 Medications Name Sig Start Date Stop Date Status Note LastModified by Organization Details LastModified Time venlafaxine ER 75 mg capsule,extended release 24 hr 09/09 completed Not Available Not Available Not Available ipratropium 0.5 mg-albuterol 3 mg (2.5 mg base)/3 mL nebulization soln 09/09 completed Not Available Not Available Not Available atorvastatin 10 mg tablet active Not Available Not Available No t Available dextroamphetamin e-amphetamine 10 mg tablet 09/09 completed Not Available Not Available Not Available sertraline 100 mg tablet 09/09 completed Not Available Not Available Not Available venlafaxine ER 150 mg capsule,extended release 24 hr active Not Available Not Availabl e Not Available quetiapine 100 mg tablet active Not Available Not Available No t Available levothyroxine 50 mcg tablet active Not Available Not Available N ot Available pantoprazole 40 mg tablet,delayed release 09/09 completed Not Available Not Available Not Available omeprazole 20 mg capsule,delayed release active Not Available Not Available Not Available metoprolol succinate ER 25 mg tablet,extended release 24 hr active Not Available Not Availabl e Not Available hydrocortisone 10 mg tablet active Not Available Not Available Not Available ProAir RespiClick 90 mcg/actuation breath activated 09/09 completed Not Available Not Available Not Available Vitals Date Recorded Body height Body mass index (BMI) Body weight Heart rate Systolic And Diastolic Provider Name and Address Organization Details Last Updated DateTime 09/09/2018 157.48 cm 33.3 kg/m2 85861.81 g 98 /min 114/61 mm[Hg] DEBBIE KUMAR [facility] 9 10:23:44 Social History Question Answer Notes LastModified by Organizat ion Details LastModified Time Tobacco Smoking Status Current Every Day Smoker RODRICK Rodriguez [facility] 09/09/2018 10:22:52 What Is Your Level Of Caffeine Consumption? None [email or web address] Information not available 09/09/2018 What Type Of Diet Are You Following? REGULAR [email or web address] Information not available 09/09/2018 What Was The Date Of Your Most Recent Tobacco Screening? 09/09/2018 Information n ot available 02/27/2019 How Many Years Have You Smoked Tobacco? 13 [email or web address] Information not available 09/09/2018 Sex: Unknown Functional Status Question Answer Note LastModified by Organization D etails LastModified Time What is your level of alcohol consumption? None Information not available 09/09/2018 Mental Status None recorded. Family History Relationship Description Onset Age of this Age Resolved Age Notes LastModified by Organization Details LastModified Time Father No current problems or disability [email or web address] Not available 09/09 10:22:43 Mother No current problems or disability [email or web address] Not available 09/09 10:22:43 Medical History Condition Response Coronary Artery Disease N Other Y Gout N Kidney Stones N Hyperthyroidism N Depression Y COPD N Hypothyroidism N Anemia N Deep Vein Thrombosis N Diabetes N Anxiety Disorder N Autoimmune disease N Bleeding Disorder N Seizures/Epilepsy N Arthritis N Tuberculosis N Cancer N Stroke N Diverticulitis N Asthma N Reflux/GERD N High Cholesterol N Hepatitis N Liver Disease N Heart Disease N Bronchitis N Pulmonary Embolism N Headaches Y Hypertension N Kidney Disease N Gynecological HistoryNo gynecological history recorded. Obstetrics History GPAL:G 0 P 0 0 0 0 Past Encounters Encounter ID Performer Location Encounter Start Date Encounter Closed Date Diagnosis/Indication Diagnosis SNOMED-CT Code Diagnosis ICD10 Code Diagnosis IMO Codes Diagnosis Note [id number] Mike Quintanilla MD Main Office [address] [facility] [address] [place] [address] 09/09/2018 09:50:43 09/09/2018 16:21:24 Health Concerns Section Related Observation LastModified by Organization Detai ls LastModified Time None Recorded Concern Status LastModified by Organization Details LastModified Time None Recorded Advance Directives Directive None Recorded Payers Insurance Date Sequence Insurance Name Policy Number Policy Lamar Covered Member ID Lamar Member ID Guarantor Name 09/09/2018 1 [facility] [place] [id number] Allie Caldera [id number] Allie Caldera Notes Date Note Type Note Provider Name and Address Organization Details Recorded Time 09/09/2018 text/html THYROID NODULEReported by PatientHPIFor associated symptoms, patient reportscold intolerance,heat intolerance,weight loss (___ lbs),difficulty swallowing,decreased appetite,joint pain,depression, andfatiguebut reportsno fast heart rate,no increased blood pressure,no palpitations,no chest pain,no chest tightess or pressure,no constipation,no diarrhea,no vomiting,no loose stools,no irregular menstrual periods,no excessive sweating,no numbness,no tingling of the hands or feet,no dry skin,no tremor,no nervousness,no anxiety,no sleep difficulties,no skin changes, andno hair changes. For quality, patient reportsworsening. For context, patient reportsnormal thyroid levels,no history of head or neck radiation during childhood,no history of thyroid disease,no history of hypothyroidism,no history of hyperthyroidism, andno excess iron exposure. Patient has known thyroid nodules and presents for followup after a thyroid ultrasound. She has some difficulty swallowing. No family history of thyroid cancer. No hoarseness. Mike Quintanilla MD [id number], [place], [address], [facility] 09/09/2018 12:56:25 OBGyn Episode No OBEpisode recorded.
--- OUTSIDE RECORDS SUMMARY | 2025-06-05 19:46 | XMS_ITS | Encounter Summary ---
Author Organization [facility] Address [address] [place] [address] Care Team Providers Care Supervisor Pole Yard Name Role Phone Ammon Villagomez MD Primary Care Provider [phone] Shania Reyes MD Unavailable Gely Greene MD Primary Care Provider [phone] Encounter Details Date Type Department Care Team (Late st Contact Info) Description 10/31/2020 Lab Requisition [facility] [address] [place] [address] Gely Greene MD [address] [place] [address] Fever, unspecified; Nontoxic single thyroid nodule; Hyperlipidemia, [...] Procedure Name Priority Date/Time Associated Diagnosis Comments HIV 1/2 AG+AB (4TH GEN) W/ REFLEX Routine 11/01/2020 8:08 AM EDT Fever, unspecified Nontoxic single thyroid nodule Hyperlipidemia, unspecified Prediabetes LEUKEMIA/LYMPHOMA EVALUATION PANEL Routine 11/01/2020 8:08 AM EDT Fever, unspecified Nontoxic single thyroid nodule Hyperlipidemia, unspecified Prediabetes PROCALCITONIN TEST Routine 11/01/2020 8: 08 AM EDT Fever, unspecified Nontoxic single thyroid nodule Hyperlipidemia, unspecified Prediabetes MANUAL DIFFERENTIAL Routine 11/01/2020 8 :08 AM EDT Fever, unspecified Nontoxic single thyroid nodule Hyperlipidemia, unspecified Prediabetes MONONUCLEOSIS SCREEN Routine 11/01/2020 8:08 AM EDT Fever, unspecified Nontoxic single thyroid nodule Hyperlipidemia, unspecified Prediabetes SEDIMENTATION RATE, AUTOMATED Routine 11/01/2020 8:08 AM EDT Fever, unspecified Nontoxic single thyroid nodule Hyperlipidemia, unspecified Prediabetes CBC AND AUTO DIFFERENTIAL Routine 11/01/2020 8:08 AM EDT Fever, unspecified Nontoxic single thyroid nodule Hyperlipidemia, unspecified Prediabetes C-REACTIVE PROTEIN ULTRASENSITIVE Routine 11/01/2020 8:08 AM EDT Fever, unspecified Nontoxic single thyroid nodule Hyperlipidemia, unspecified Prediabetes TSH WITH REFLEX TO FREE T4 Routine 11/01/2020 8:08 AM EDT Fever, unspecified Nontoxic single thyroid nodule Hyperlipidemia, unspecified Prediabetes LACTATE DEHYDROGENASE Routine 11/01/2020 8:08 AM EDT Fever, unspecified Nontoxic single thyroid nodule Hyperlipidemia, unspecified Prediabetes CK Routine 11/01/2020 8:08 AM EDT Fever, unspecified Nontoxic single thyroid nodule Hyperlipidemia, unspecified Prediabetes LIPID PANEL Routine 11/01/2020 8:08 AM EDT Fever, unspecified Nontoxic single thyroid nodule Hyperlipidemia, unspecified Prediabetes COMPREHENSIVE METABOLIC PANEL Routine 11/01/2020 8:08 AM EDT Fever, unspecified Nontoxic single thyroid nodule Hyperlipidemia, unspecified Prediabetes ACUTE TICK PANEL WITH REFLEX BLOT Routine 11/01/2020 7:30 AM EDT Fever, unspecified Nontoxic single thyroid nodule Hyperlipidemia, unspecified Prediabetes documented in this encounter Results * (ABNORMAL) Manual Differential (11/01/2020 8:08 AM EDT) WBC 6.8 10*3/ L 11/01/2020 3:02 PM EDT [facility] Neut % 32(L) 40 - 85 % 11/01/2020 3:02 PM EDT [facility] Bands % 2 0 - 8 % 11/01/2020 3:02 PM EDT [facility] Lymph % 58(H) 15 - 45 % 11/01/2020 3:02 PM EDT [facility] Traverse % 8 0 - 12 % 11/01/2020 3:02 PM EDT [facility] Total Cells Count 100 11/01/2020 3:02 PM EDT [facility] RBC Morphology Normal Normal 11/01/2020 3:02 PM EDT [facility] Platelet Estimate Normal Normal 11/01/2020 3:02 PM EDT [facility] Reactive Lymphocytes Slight(A) None Seen 11/01/2020 3:02 PM EDT [facility] Blood specimen (specimen) Venipuncture / Unknown 11/01/2020 8:08 AM EDT 11/01/2020 12:32 PM EDT us Gely Greene MD LAB BLOOD ORDERABLES Final Re sult [facility] [address] [place] [address] * HIV 1/2 AG+AB (4th Gen) w/Reflex (11/01/2020 8:08 AM EDT) Pathologist [facility] HIV 1-2 AG/AB (4th Gen) Nonreactive Nonreactive 11/01/2020 2:07 PM EDT [facility] Blood specimen (specimen) Venipuncture / Unknown 11/01/2020 8:08 AM EDT 11/01/2020 12:32 PM EDT us Gely Greene MD LAB BLOOD ORDERABLES Final Re sult [facility] [address] [place] [id number] * Leukemia/Lymphoma Evaluation Panel $$$$ (11/01/2020 8:08 AM EDT) [facility] Specimen Type Peripheral Blood 11/02 5:05 PM EDT [facility] Body Site venous 11/02/2020 5:05 PM EDT [facility] Clinical Data Fever, unspecified, R50.9\r\n Nontoxic single thyroid nodule, E04.1\r\n Hyperlipidemia, unspecified, E78.5\r\n Prediabetes, R73.03 11/02/2020 5:05 PM EDT [facility] Flow Diagnosis No diagnostic immunophenotypic abnormalities are present. 11/02/2020 5:05 PM EDT [facility] Comments Flow cytometric analysis shows polyclonal B-cells with no diagnostic T-cell aberrant antigenic expression. Blasts are not increased in number. There is no immunophenotypic evidence of lymphoma. Clinical correlation is recommended 11/02/2020 5:05 PM EDT [facility] Lymphocytes % 58.8% 11/02/2020 5:05 PM EDT [facility] Myeloid Cells % 36.6% 5:05 PM EDT [facility] Monocytes % 4.6% 11/02/2020 5:05 PM EDT [facility] Blasts % less than0.01 11/02/2020 5:05 PM EDT [facility] Debris % 1.5% 11/02/2020 5:05 PM EDT [facility] Lymphocytes Immunophenotypic analysis on the lymphoid gated population shows 66% of the lymphocytes are T-cells with normal CD4:CD8 ratio and no loss of roy T-cell antigen expression, 15% are polyclonal B-cells with normal antigen expression and the remainder are NK cells. 11/02/2020 5:05 PM EDT [facility] Myeloid Cells The dominant population detected in this analysis is the myeloid population that demonstrates normal myelopoiesis. 11/02/2020 5:05 PM EDT [facility] Monocytes Monocytes show mature phenotype. 11/02/2020 5:05 PM EDT [facility] Electronically Signed By Kimberlee Be M.D. 11/02/2020 5:05 PM EDT [facility] Performing Laboratory [facility], [address] [place] [address], [address] Phone - 11/02/2020 5:05 PM EDT [facility] CD10 Performed 11/02/2020 5:05 PM EDT [facility] CD117 Performed 11/02/2020 5:05 PM EDT [facility] CD11b Performed 11/02/2020 5:05 PM EDT [facility] CD13 Performed 11/02/2020 5:05 PM EDT [facility] CD14 Performed 11/02/2020 5:05 PM EDT [facility] CD15 Performed 11/02/2020 5:05 PM EDT [facility] CD16 Performed 11/02/2020 5:05 PM EDT [facility] CD19 Performed 11/02/2020 5:05 PM EDT [facility] CD2 Performed 11/02/2020 5:05 PM EDT [facility] CD20 Performed 11/02/2020 5:05 PM EDT [facility] CD3 Performed 11/02/2020 5:05 PM EDT [facility] CD33 Performed 11/02/2020 5:05 PM EDT [facility] CD34 Performed 11/02/2020 5:05 PM EDT [facility] CD38 Performed 11/02/2020 5:05 PM EDT [facility] CD4 Performed 11/02/2020 5:05 PM EDT [facility] CD45 Performed 11/02/2020 5:05 PM EDT [facility] CD5 Performed 11/02/2020 5:05 PM EDT [facility] CD56 Performed 11/02/2020 5:05 PM EDT [facility] CD64 Performed 11/02/2020 5:05 PM EDT [facility] CD7 Performed 11/02/2020 5:05 PM EDT [facility] CD8 Performed 11/02/2020 5:05 PM EDT [facility] HLA-DR Performed 11/02/2020 5:05 PM EDT [facility] [place] Performed 11/02/2020 5:05 PM EDT [facility] Lambda Performed 11/02/2020 5:05 PM EDT [facility] Blood specimen (specimen) Venipuncture / Unknown 11/01/2020 8:08 AM EDT 11/01/2020 12:32 PM EDT Gely Greene MD LAB BLOOD ORDERABLES Final Re sult Performing Organization Address City/[facility]/ZIP Co de Phone Number [facility] [place] [address] * Mononucleosis screen (11/01/2020 8:08 AM EDT) Infectious [place] Negative Negative 2:20 PM EDT [facility] Blood specimen (specimen) Venipuncture / Unknown 11/01/2020 8:08 AM EDT 11/01/2020 12:32 PM EDT Gely Greene MD LAB BLOOD ORDERABLES Final Re sult Performing Organization Address City/[facility]/ZIP Co de Phone Number [facility] [address] [place] [address] * Procalcitonin Test (11/01/2020 8:08 AM EDT) Procalcitonin <0.04 0.00-<0.05 ng/mL 11/01/2020 2:22 PM EDT [facility] Blood specimen (specimen) Venipuncture / Unknown 11/01/2020 8:08 AM EDT 11/01/2020 12:33 PM EDT Narrative [facility] - 11/01/2020 2:22 PM EDT Levels < 0.50 ng/ml Low [...] MD LAB BLOOD ORDERABLES Final Re sult [facility] [address] [place] [address] * (ABNORMAL) Comprehensive metabolic panel (11/01/2020 8:08 AM EDT) Sodium 138 136 - 145 mEq/L 11/01/2020 2:02 PM EDT [facility] Potassium 3.4(L) 3.5 - 5.1 mEq/L 11/01/2020 2:02 PM EDT [facility] Chloride 106 98 - 107 mEq/L 11/01/2020 2:02 PM EDT [facility] CO2 26 20 - 31 mEq/L 11/01/2020 2:02 PM EDT [facility] Anion Gap 6 4 - 15 mEq/L 11/01/2020 2:02 PM EDT [facility] Glucose 105(H) 70 - 100 mg/dL 11/01/2020 2:02 PM EDT [facility] Creatinine 0.53 0.50 - 1.00 mg/dL 11/01/2020 2:02 PM EDT [facility] eGFR >60 60 - 115 mL/min 11/01/2020 2:02 PM EDT [facility] BUN 18 9 - 23 mg/dL 11/01/2020 2:02 PM EDT [facility] Calcium 9.6 8.7 - 10.4 mg/dL 11/01/2020 2:02 PM EDT [facility] Total Protein 6.8 5.7 - 8.2 g/dL 11/01/2020 2:02 PM EDT [facility] Albumin 4.8 3.2 - 4.8 g/dL 11/01/2020 2:02 PM EDT [facility] A/G Ratio 2.4(H) 1.0 - 2.3 11/01/2020 2:02 PM EDT [facility] Total Bilirubin 0.3 0.2 - 1.0 mg/dL 11/01/2020 2:02 PM EDT [facility] AST 19 13 - 40 U/L 11/01/2020 2:02 PM EDT [facility] Alkaline Phosphatase 115 46 - 116 IU/L 11/01/2020 2:02 PM EDT [facility] ALT 21 7 - 40 U/L 11/01/2020 2:02 PM EDT [facility] Blood specimen (specimen) Venipuncture / Unknown 11/01/2020 8:08 AM EDT 11/01/2020 12:33 PM EDT Narrative [facility] - 11/01/2020 2:02 PM EDT Reference range has been changed as of 05/03/2020. us Gely Greene MD LAB BLOOD ORDERABLES Final Re sult [facility] [address] [place] [address] * CBC and Auto Differential (11/01/2020 8:08 AM EDT) WBC 6.8 4.8 - 11.2 10*3/ L 11/01/2020 1:04 PM EDT [facility] RBC 4.38 3.60 - 5.40 10*6/ L 11/01/2020 1:04 PM EDT [facility] HGB 13.3 12.0 - 15.8 g/dL 11/01/2020 1:04 PM EDT [facility] HCT 40.9 36.0 - 48.0 % 11/01/2020 1:04 PM EDT [facility] MCV 93.4 82.0 - 98.0 fL 11/01/2020 1:04 PM EDT [facility] MCH 30.3 27.0 - 35.0 pg 11/01/2020 1:04 PM EDT [facility] MCHC 32.4 32.0 - 37.0 g/dL 11/01/2020 1:04 PM EDT [facility] RDW 14.6 12.0 - 15.0 % 11/01/2020 1:04 PM EDT [facility] PLT 307 150 - 400 10*3/ L 11/01/2020 1:04 PM EDT [facility] MPV 8.7 7.0 - 14.0 fL 11/01/2020 1:04 PM EDT [facility] NRBC% 0 0 /100 WBC /100 WBC 11/01/2020 1:04 PM EDT [facility] Add Manual Diff Yes Per Protocol 11/01/2020 1:04 PM EDT [facility] Blood specimen (specimen) Venipuncture / Unknown 11/01/2020 8:08 AM EDT 11/01/2020 12:32 PM EDT us Gely Grenee MD LAB BLOOD ORDERABLES Final Re sult Performing Organization Address [facility] Co de Phone Number [facility] [address] [place] [phone] * Lactate Dehydrogenase (11/01/2020 8:08 AM EDT) LD 211 120 - 246 IU/L 11/01/2020 1:49 PM EDT [facility] Blood specimen (specimen) Venipuncture / Unknown 11/01/2020 8:08 AM EDT 11/01/2020 12:33 PM EDT us Gely Greene MD LAB BLOOD ORDERABLES Final Re sult Performing Organization Address [facility] Co de Phone Number [facility] [address] [place] [phone] * CK (11/01/2020 8:08 AM EDT) Total CPK 108 34 - 145 IU/L 11/01/2020 1:49 PM EDT [facility] Blood specimen (specimen) Venipuncture / Unknown 11/01/2020 8:08 AM EDT 11/01/2020 12:33 PM EDT Narrative [facility] - 11/01/2020 1:49 PM EDT Reference range has been changed as of 05/03/2020. Gely Greene MD LAB BLOOD ORDERABLES Final Re sult Performing Organization Address [facility] Co de Phone Number [facility] [address] [place] [phone] * (ABNORMAL) CRP, Ultrasensitive (11/01/2020 8:08 AM EDT) Pathologist [facility] CRP, Ultrasensitive 8.72(H) 0.00 - 3.00 mg/L 11/01/2020 2:44 PM EDT [facility] Blood specimen (specimen) Venipuncture / Unknown 11/01/2020 8:08 AM EDT 11/01/2020 12:32 PM EDT Narrative [facility] - 11/01/2020 2:44 PM EDT C Reactive Protein High Sensitivity < 1.0 mg/L Low cardiovascular risk 1.0 - 3.0 mg/L Average cardiovascular risk 3.1 - 10.0 mg/L High cardiovascular risk > 10.0 Consider infection/inflammation Gely Greene MD LAB BLOOD ORDERABLES Final Re sult Performing Organization Address [facility] Co de Phone Number [facility] [address] [place] [phone] * (ABNORMAL) Lipid panel (11/01/2020 8:08 AM EDT) Pathologist [facility] Cholesterol 185 <200 mg/dL 11/01/2020 1:49 PM EDT [facility] Triglycerides 94 <150 mg/dL 11/01/2020 1:49 PM EDT [facility] HDL 55.1(L) >=60.0 mg/dL 11/01/2020 1:49 PM EDT [facility] LDL Calculated 111(H) 0 - 100 mg/dL 11/01/2020 1:49 PM EDT [facility] Cardiac Risk Factor 3.4 0.0 - 4.4 11/01/2020 1:49 PM EDT [facility] Blood specimen (specimen) Venipuncture / Unknown 11/01/2020 8:08 AM EDT 11/01/2020 12:33 PM EDT Narrative [facility] - 11/01/2020 1:49 PM EDT Cardiac Risk Factor: Males Females 2x Average Risk 9.6 7.1 3x Average Risk 23.4 11.0 Reference range has been changed as of 05/03/2020. Gely Greene MD LAB BLOOD ORDERABLES Final Re sult Performing Organization Address [facility] de Phone Number [facility] [address] [place] [address] * TSH with reflex to Free T4 (11/01/2020 8:08 AM EDT) TSH 0.623 0.340 - 4.820 uIU/mL 11/01/2020 1:54 PM EDT [facility] Blood specimen (specimen) Venipuncture / Unknown 11/01/2020 8:08 AM EDT 11/01/2020 12:33 PM EDT Narrative [facility] - 11/01/2020 1:54 PM EDT Reference range has been changed as of 05/03/2020. Gely Greene MD LAB BLOOD ORDERABLES Final Re sult Performing Organization Address [facility] Co de Phone Number [facility] [address] [place] [address] * Sedimentation Rate, automated (11/01/2020 8:08 AM EDT) Sed Rate 26 0 - 30 mm/hr 11/01/2020 1:08 PM EDT [facility] Blood specimen (specimen) Venipuncture / Unknown 11/01/2020 8:08 AM EDT 11/01/2020 12:32 PM EDT us Gely Greene MD LAB BLOOD ORDERABLES Final Re sult [facility] [address] [place] [address] * Acute Tick Panel with Reflex Blot (11/01/2020 7:30 AM EDT) Babesia microti DNA NOT DETECTED NOT DETECTED 11/04/2020 2:48 PM EDT [facility] Comment: This test was developed and its analytical performance characteristics have been determined by [facility]. It has not been cleared or approved by the FDA. This assay has been validated pursuant to the CLIA regulations and is used for clinical purposes. Anaplasma phagocytophilum DNA NOT DETECTED NOT DETECTED 11/04/2020 2:48 PM EDT [facility] Comment: This test was developed and its analytical performance characteristics have been determined by [facility]. It has not been cleared or approved by the FDA. This assay has been validated pursuant to the CLIA regulations and is used for clinical purposes. Borrelia miyamotoi DNA, Real-Time PCR NOT DETECTED NOT DETECTED 11/04/2020 2:48 PM EDT [facility] Comment: This test was developed and its analytical performance characteristics have been determined by [facility]. It has not been cleared or approved by the FDA. This assay has been validated pursuant to the CLIA regulations and is used for clinical purposes. Lyme AB Screen <0.90 index 11/04/2020 2:48 PM EDT [facility] Comment: Index Interpretation ----- < 0.90 Negative 0.90-1.09 Equivocal > 1.09 Positive As recommended by the Food and Drug Administration (FDA), all samples with positive or equivocal results in a Borrelia burgdorferi antibody screen will be tested using a blot method. Positive or equivocal screening test results should not be interpreted as truly positive until verified as such using a supplemental assay (e.g., B. burgdorferi blot). The screening test and/or blot for B. burgdorferi antibodies may be falsely negative in early stages of Lyme disease, including the period when erythema migrans is apparent. Borrelia miyamotoi DNA Source BLOOD 11/04/2020 2:48 PM EDT [facility] Blood specimen (specimen) Venipuncture / Unknown 11/01/2020 7:30 AM EDT 11/01/2020 1:22 PM EDT Narrative [facility] - 11/04/2020 2:48 PM EDT Performing Organization Information: Site ID: [id number] Name: [facility] [employer] Address: [address] [place] [id number] Director: Brook Saravia us Gely Greene MD LAB BLOOD ORDERABLES Final Re sult [facility] [address] [place] [address] documented in this encounter Visit Diagnoses Diagnosis Fever, unspecified Nontoxic single thyroid nodule Nontoxic uninodular goiter Hyperlipidemia, unspecified Prediabetes Other abnormal glucose documented in this encounter Additional Health Concerns Infection Onset Date Last Indicated Resolved Time PUI COVID 08/28/2023 08/28/2023 08/28/2023 5:43 PM EST documented as of this encounter Care Teams Supervisor Pole Yard Relationship Specialty Start Date End Date Ammon Villagomez MD [address] [place] [address] PCP - General 04/23/14 07/09/22 Gely Greene MD [facility] [address] [place] [address] PCP - General Internal Medicine 07/10/22 Shania Reyes MD [address] [place] [address] - [place] [address] Physician Hematology and Oncology 08/19/18 documented as of this encounter
--- OUTSIDE RECORDS SUMMARY | 2025-06-05 19:46 | XMS_ITS | Encounter Summary ---
Author Organization [facility] Address [address] [place] [address] Care Team Providers Care Chute Loader Name Role Phone Ammon Villagomez MD Primary Care Provider Shania Reyes MD Unavailable Gely Greene MD Primary Care Provider [phone] Reason for Referral * Diagnostic (Routine) - Closed Specialty Diagnoses / Procedures Referred By Contac t Referred To Contact Cardiology Diagnoses SOB (shortness of breath) Procedures Cardiac echo complete Gely Greene MD [address] [place] [address] Phone: tel: fax: [address] [address] Phone: tel: fax: Referral ID Status Reason Start Date Expiration Date Visits Re quested Visits Authorized [id number] Closed 12/14/2020 12/14/2021 1 1 Encounter Details Date Type Department Care Team ([facility] st Contact Info) Description 12/14/2020 Ancillary Orders [address] [phone] Gely Greene MD [address] [facility] [place] [address] [address] [place] [address] SOB (shortness of breath) Social History Tobacco Use Types Packs/Day Years [...] documented as of this encounter Results * (ABNORMAL) CARDIAC ECHO COMPLETE (07/03/2021 10:59 AM EST) BSA 1.96 m2 [facility] LA Volume 31.00 mL [facility] LA Size 2.40 cm [facility] AV Pk Janusz 1.57 m/s [facility] AV Pk Grad 10.00 mmHg [facility] Sinus Diameter 2.60 cm [facility] Prox Asc Aorta 3.00 cm [facility] IVS 0.71 0.6 - 1.1 cm [facility] LVIDD 3.98 3.5 - 6.0 cm [facility] LVIDS 1.15(A) 2.1 - 4.0 cm [facility] LVOT Diam 1.90 cm [facility] LVOT Pk Janusz 1.29 m/s [facility] LVOT Pk Grad 7.00 mmHg [facility] PW 0.73 0.6 - 1.1 cm [facility] Lateral TDI e' 0.12 m/s [facility] Medial TDI e' 0.11 m/s [facility] MV Decel Time 215.00 msec [facility] MV Pk A Janusz 0.72 m/s [facility] MV Pk E Janusz 0.86 m/s [facility] PV pk janusz 0.73 m/s [facility] PV Pk Grad 2.00 mmHg [facility] RV S' Janusz 0.19 m/s [facility] IVC Proximal 1.50 cm [facility] RV AP4 Base 3.07 cm [facility] RA Area 15.80 cm2 [facility] FS 71.11 28 - 44 % [facility] Velocity Ratio (DI) 0.82 [facility] E/A Ratio 1.19 [facility] LA Vol Ind 15.82 mL/m2 [facility] Sinus Diameter - Index 1.33 cm/m2 [facility] Prox Asc Aorta - Index 1.53 cm/m2 [facility] EF 96 % [facility] LVOT Area 2.83 cm2 [facility] Est. RAP 3.00 mmHg [facility] TAPSE 2.30 cm [facility] Anatomical Region Laterality Modality Heart (Echo) Ultrasound Narrative 07/03/2021 5:18 PM EST Image quality: Fair. Cardiac rhythm observed: Sinus rhythm. Previous study date: 12/08/2018 Normal biventricular size and function, ejection fraction 55-60%, normal diastolic function Normal IVC size, normal right atrial pressure estimated 3 mm Hg Trivial tricuspid regurgitation No pericardial effusion No significant change from previous echocardiogram Left Ventricle Normal cavity size and wall thickness. Normal (55-60%) ejection fraction. No regional wall motion abnormalities noted. Normal diastolic function. Right Ventricle Normal cavity size and systolic function. Left Atrium Normal cavity size. No atrial septal defect or shunt flow is demonstrated by color flow Doppler. Right Atrium Normal cavity size. IVC/SVC Size and degree of collapse consistent with normal estimated right atrial pressure (3 mm Hg). Mitral Valve Normal valve structure. No regurgitation noted. No stenosis noted. Tricuspid Valve Normal tricuspid valve structure. Trace regurgitation noted. Unable to estimate pulmonary artery systolic pressure. No stenosis noted. Aortic Valve Aortic valve not well visualized. Normal valve structure. No regurgitation noted. No stenosis noted. Pulmonic Valve Pulmonic valve not well visualized. No stenosis noted. Pericardium No pericardial effusion. Aorta Normal aortic root and proximal ascending aorta size. General Study Information Technologist-entered indication(s): SOB Image quality: Fair. Cardiac rhythm observed: Sinus rhythm. Previous study date: 12/08/2018 Wall Scoring Score Index: 1.000 Percent Normal: 100.0% The left ventricular wall motion is normal. us Gely Greene MD CV ECHO ORDERABLES Final Resu lt documented in this encounter Visit Diagnoses Diagnosis SOB (shortness of breath) Shortness of breath SOB (shortness of breath) Shortness of breath documented in this encounter Additional Health Concerns Infection Onset Date Last Indicated Resolved Time PUI COVID 08/28/2023 08/28/2023 08/28/2023 5:43 PM EST documented as of this encounter Care Teams Chute Loader Relationship Specialty Start Date End Date Ammon Villagomez MD [address] [place] [address] PCP - General 04/23/14 07/09/22 Gely Greene MD [address] [place] [address] PCP - General Internal Medicine 07/10/22 Shania Reyes MD [address] [place] [address] [place] [address] Physician Hematology and Oncology 08/19/18 documented as of this encounter
--- OUTSIDE RECORDS SUMMARY | 2025-06-05 19:46 | XMS_ITS | Encounter Summary ---
Author Organization [facility] Address [address] [place] [address] Care Team Providers Care Bag Sealer Name Role Phone Ammon Villagomez MD Primary Care Provider Shania Reyes MD Unavailable Gely Greene MD Primary Care Provider [phone] Encounter Details Date Type Department Care Team (Late st Contact Info) Description 09/05/2020 Lab Requisition [facility] [address] [place] [address] Gely Greene MD [address] [place] [address] Prediabetes; Hyperlipidemia, unspecified Social History Tobacco Use Types Packs/Day [...] Procedure Name Priority Date/Time Associated Diagnosis Comments MANUAL DIFFERENTIAL Routine 09/06/2020 7 :45 AM EST Prediabetes Hyperlipidemia, unspecified CBC AND AUTO DIFFERENTIAL Routine 09/06/2020 7:45 AM EST Prediabetes Hyperlipidemia, unspecified TSH WITH REFLEX TO FREE T4 Routine 09/06/2020 7:45 AM EST Prediabetes Hyperlipidemia, unspecified HEMOGLOBIN A1C Routine 09/06/2020 7:45 AM EST Prediabetes Hyperlipidemia, unspecified CK Routine 09/06/2020 7:45 AM EST Prediabetes Hyperlipidemia, unspecified LIPID PANEL Routine 09/06/2020 7:45 AM EST Prediabetes Hyperlipidemia, unspecified COMPREHENSIVE METABOLIC PANEL Routine 09/06/2020 7:45 AM EST Prediabetes Hyperlipidemia, unspecified documented in this encounter Results * (ABNORMAL) Manual Differential (09/06/2020 7:45 AM EST) WBC 4.4 10*3/ L 09/06/2020 12:38 PM [facility] Neut % 34(L) 40 - 85 % 09/06/2020 12:38 PM [facility] Lymph % 60(H) 15 - 45 % 09/06/2020 12:38 PM [facility] [place] % 2 0 - 12 % 09/06/2020 12:38 PM [facility] Eos % 4 0 - 7 % 09/06/2020 12:38 PM [facility] Total Cells Count 100 09/06/2020 12:38 PM [facility] RBC Morphology Normal Normal 09/06/2020 12:38 PM [facility] Platelet Estimate Normal Normal 09/06/2020 12:38 PM [facility] Reactive Lymphocytes Slight(A) None Seen 09/06/2020 12:38 PM [facility] Comment:Occasional. Blood specimen (specimen) Venipuncture / Unknown 09/06/2020 7:45 AM EST 09/06/2020 9:28 AM EST Gely Greene MD LAB BLOOD ORDERABLES Final Re sult Performing Organization Address [facility] Co de Phone Number [facility] [address] [place] [address] * CK (09/06/2020 7:45 AM EST) Total CPK 38 34 - 145 IU/L 09/06/2020 10:03 AM EST [facility] Blood specimen (specimen) Venipuncture / Unknown 09/06/2020 7:45 AM EST 09/06/2020 9:28 AM EST Narrative [facility] - 09/06/2020 10:03 AM EST Reference range has been changed as of 05/03/2020. us Gely Greene MD LAB BLOOD ORDERABLES Final Re sult Performing Organization Address [facility] Co de Phone Number [facility] [address] [place] [address] * (ABNORMAL) CBC and Auto Differential (09/06/2020 7:45 AM EST) Pathologist [facility] WBC 4.4(L) 4.8 - 11.2 10*3/ L 09/06/2020 11:27 AM EST [facility] RBC 4.47 3.60 - 5.40 10*6/ L 09/06/2020 11:27 AM EST [facility] HGB 13.6 12.0 - 15.8 g/dL 09/06/2020 11:27 AM EST [facility] HCT 41.4 36.0 - 48.0 % 09/06/2020 11:27 AM EST [facility] MCV 92.6 82.0 - 98.0 fL 09/06/2020 11:27 AM EST [facility] MCH 30.4 27.0 - 35.0 pg 09/06/2020 11:27 AM EST [facility] MCHC 32.8 32.0 - 37.0 g/dL 09/06/2020 11:27 AM [facility] RDW 15.0 12.0 - 15.0 % 09/06/2020 11:27 AM [facility] PLT 296 150 - 400 10*3/ L 09/06/2020 11:27 AM [facility] MPV 8.3 7.0 - 14.0 fL 09/06/2020 11:27 AM [facility] NRBC% 0 0 /100 WBC /100 WBC 09/06/2020 11:27 AM [facility] Add Manual Diff Yes Per Protocol 09/06/2020 11:27 AM [facility] Blood specimen (specimen) Venipuncture / Unknown 09/06/2020 7:45 AM EST 09/06/2020 9:28 AM EST us Gely Greene MD LAB BLOOD ORDERABLES Final Re sult [facility] [address] [place] [address] * (ABNORMAL) Comprehensive metabolic panel (09/06/2020 7:45 AM EST) Sodium 142 136 - 145 mEq/L 09/06/2020 10:03 AM [facility] Potassium 4.9 3.5 - 5.1 mEq/L 09/06/2020 10:03 AM [facility] Chloride 107 98 - 107 mEq/L 09/06/2020 10:03 AM [facility] CO2 32(H) 20 - 31 mEq/L 09/06/2020 10:03 AM [facility] Anion Gap 3(L) 4 - 15 mEq/L 09/06/2020 10:03 AM [facility] Glucose 108(H) 70 - 100 mg/dL 09/06/2020 10:03 AM [facility] Creatinine 0.60 0.50 - 1.00 mg/dL 09/06/2020 10:03 AM [facility] eGFR >60 60 - 115 mL/min 09/06/2020 10:03 AM [facility] BUN 20 9 - 23 mg/dL 09/06/2020 10:03 AM [facility] Calcium 9.6 8.7 - 10.4 mg/dL 09/06/2020 10:03 AM [facility] Total Protein 6.8 5.7 - 8.2 g/dL 09/06/2020 10:03 AM [facility] Albumin 4.7 3.2 - 4.8 g/dL 09/06/2020 10:03 AM [facility] A/G Ratio 2.2 1.0 - 2.3 09/06/2020 10:03 AM [facility] Total Bilirubin 0.3 0.2 - 1.0 mg/dL 09/06/2020 10:03 AM [facility] AST 20 13 - 40 U/L 09/06/2020 10:03 AM [facility] Alkaline Phosphatase 130(H) 46 - 116 IU/L 09/06/2020 10:03 AM [facility] ALT 25 7 - 40 U/L 09/06/2020 10:03 AM [facility] Blood specimen (specimen) Venipuncture / Unknown 09/06/2020 7:45 AM EST 09/06/2020 9:28 AM EST [facility] - 09/06/2020 10:03 AM EST Reference range has been changed as of 05/03/2020. us Gely Greene MD LAB BLOOD ORDERABLES Final Re sult [facility] [address] [facility] [place] [address] * (ABNORMAL) Lipid panel (09/06/2020 7:45 AM EST) Cholesterol 196 <200 mg/dL 09/06/2020 10:03 AM EST [facility] Triglycerides 129 <150 mg/dL 09/06/2020 10:03 AM [facility] HDL 51.5(L) >=60.0 mg/dL 09/06/2020 10:03 AM EST [facility] LDL Calculated 119(H) 0 - 100 mg/dL 09/06/2020 10:03 AM EST [facility] Cardiac Risk Factor 3.8 0.0 - 4.4 09/06/2020 10:03 AM EST [facility] Blood specimen (specimen) Venipuncture / Unknown 09/06/2020 7:45 AM EST 09/06/2020 9:28 AM EST Narrative [facility] - 09/06/2020 10:03 AM EST Cardiac Risk Factor: Males Females 2x Average Risk 9.6 7.1 3x Average Risk 23.4 11.0 Reference range has been changed as of 05/03/2020. Gely Greene MD LAB BLOOD ORDERABLES Final Re sult Performing Organization Address [facility] Co de Phone Number [facility] [address] [place] [phone] * (ABNORMAL) Hemoglobin A1c (09/06/2020 7:45 AM EST) Hemoglobin A1C 6.3(H) 4.0 - 6.0 % 09/06/2020 10:56 AM EST [facility] Estimated Average Glucose eAG 134.1(H) 85.0 - 126.0 mg/dL 09/06/2020 10:56 AM EST [facility] Blood specimen (specimen) Venipuncture / Unknown 09/06/2020 7:45 AM EST 09/06/2020 9:28 AM EST Gely Greene MD LAB BLOOD ORDERABLES Final Re sult Performing Organization Address [facility] Co de Phone Number [facility] [address] [place] [phone] * TSH with reflex to Free T4 (09/06/2020 7:45 AM EST) TSH 0.786 0.550 - 4.780 uIU/mL 09/06/2020 10:03 AM EST [facility] Blood specimen (specimen) Venipuncture / Unknown 09/06/2020 7:45 AM EST 09/06/2020 9:28 AM EST Narrative [facility] - 09/06/2020 10:03 AM EST Reference range has been changed as of 05/03/2020. Gely Greene MD LAB BLOOD ORDERABLES Final Re sult [facility] [address] [place] [address] documented in this encounter Visit Diagnoses Diagnosis Prediabetes Other abnormal glucose Hyperlipidemia, unspecified documented in this encounter Additional Health Concerns Infection Onset Date Last Indicated Resolved Time PUI COVID 08/28/2023 08/28/2023 08/28/2023 5:43 PM EST documented as of this encounter Care Teams Bag Sealer Relationship Specialty Start Date End Date Ammon Villagomez MD [address] [place] [address] PCP - General 04/23/14 07/09/22 Gely Greene MD [address] [place] [address] PCP - General Internal Medicine 07/10/22 Shania Reyes MD [address] [place] [address] [place] [address] Physician Hematology and Oncology 08/19/18 documented as of this encounter
--- OUTSIDE RECORDS SUMMARY | 2025-06-05 19:46 | XMS_ITS | Encounter Summary ---
Author Organization [facility] Address [address] [place] [address] Care Team Providers Care Animal Ecologist Name Role Phone Ammon Villagomez MD Primary Care Provider Shania Reyes MD Unavailable Gely Greene MD Primary Care Provider Encounter Details Date Type Department Care Team (Late st Contact Info) Description 06/24/2020 Lab Requisition [facility] [address] [place] [address] Gely Greene MD [address] [place] [address] Fever, unspecified; Cough Social History Tobacco Use Types Packs/Day Years [...] Associated Diagnosis Comments C-REACTIVE PROTEIN INFLAMMATION Routine 06/27/2020 9:00 AM EST Fever, unspecified Cough PROCALCITONIN TEST Routine 06/27/2020 9: 00 AM EST Fever, unspecified Cough SEDIMENTATION RATE, AUTOMATED Routine 06/27/2020 9:00 AM EST Fever, unspecified Cough CBC AND AUTO DIFFERENTIAL Routine 06/27/2020 9:00 AM EST Fever, unspecified Cough LACTATE DEHYDROGENASE Routine 06/27/2020 9:00 AM EST Fever, unspecified Cough COMPREHENSIVE METABOLIC PANEL Routine 06/27/2020 9:00 AM EST Fever, unspecified Cough SPUTUM CULTURE + GRAM STAIN Routine 06/27/2020 Fever, unspecified Cough documented in this encounter Results * (ABNORMAL) CRP, Inflammation (06/27/2020 9:00 AM EST) CRP, Inflammation 4.69(H) 0.00 - 3.00 mg/L 06/27/2020 12:15 PM EST [facility] Blood specimen (specimen) Venipuncture / Unknown 06/27/2020 9:00 AM EST 06/27/2020 11:26 AM EST us Gely Greene MD LAB BLOOD ORDERABLES Final Re sult [facility] [address] [place] [address] * Sedimentation Rate, automated (06/27/2020 9:00 AM EST) Sed Rate 23 0 - 30 mm/hr 06/27/2020 11:59 AM EST [facility] Blood specimen (specimen) Venipuncture / Unknown 06/27/2020 9:00 AM EST 06/27/2020 11:27 AM EST Gely Greene MD LAB BLOOD ORDERABLES Final Re sult [facility] [address] [place] [address] * (ABNORMAL) Comprehensive metabolic panel (06/27/2020 9:00 AM EST) Sodium 136 136 - 145 mEq/L 06/27/2020 1:49 PM [facility] Potassium 3.6 3.5 - 5.1 mEq/L 06/27/2020 1:49 PM [facility] Chloride 105 98 - 107 mEq/L 06/27/2020 1:49 PM [facility] CO2 25 20 - 31 mEq/L 06/27/2020 1:49 PM [facility] Anion Gap 6 4 - 15 mEq/L 06/27/2020 1:49 PM [facility] Glucose 157(H) 70 - 100 mg/dL 06/27/2020 1:49 PM [facility] Creatinine 0.58 0.50 - 1.00 mg/dL 06/27/2020 1:49 PM [facility] eGFR >60 60 - 115 mL/min 06/27/2020 1:49 PM [facility] BUN 24(H) 9 - 23 mg/dL 06/27/2020 1:49 PM [facility] Calcium 9.4 8.7 - 10.4 mg/dL 06/27/2020 1:49 PM [facility] Total Protein 6.5 5.7 - 8.2 g/dL 06/27/2020 1:49 PM [facility] Albumin 4.7 3.2 - 4.8 g/dL 06/27/2020 1:49 PM [facility] A/G Ratio 2.6(H) 1.0 - 2.3 06/27/2020 1:49 PM [facility] Total Bilirubin 0.2 0.2 - 1.0 mg/dL 06/27/2020 1:49 PM [facility] AST 13 13 - 40 U/L 06/27/2020 1:49 PM [facility] Alkaline Phosphatase 109 46 - 116 IU/L 06/27/2020 1:49 PM [facility] ALT 17 7 - 40 U/L 06/27/2020 1:49 PM EST [facility] Blood specimen (specimen) Venipuncture / Unknown 06/27/2020 9:00 AM EST 06/27/2020 11:26 AM EST Narrative [facility] - 06/27/2020 1:49 PM EST Reference range has been changed as of 05/03/2020. Gely Greene MD LAB BLOOD ORDERABLES Final Re sult Performing Organization Address [facility] Co de Phone Number [facility] [address] [place] [address] * Lactate Dehydrogenase (06/27/2020 9:00 AM EST) Pathologist [facility] LD 181 120 - 246 IU/L 06/27/2020 1:46 PM EST [facility] Blood specimen (specimen) Venipuncture / Unknown 06/27/2020 9:00 AM EST 06/27/2020 11:26 AM EST Gely Greene MD LAB BLOOD ORDERABLES Final Re sult Performing Organization Address [facility] Co de Phone Number [facility] [address] [place] [address] * CBC and Auto Differential (06/27/2020 9:00 AM EST) Pathologist [facility] WBC 7.9 4.8 - 11.2 10*3/ L 06/27/2020 11:43 AM EST [facility] RBC 4.11 3.60 - 5.40 10*6/ L 06/27/2020 11:43 AM EST [facility] HGB 12.7 12.0 - 15.8 g/dL 06/27/2020 11:43 AM EST [facility] HCT 38.2 36.0 - 48.0 % 06/27/2020 11:43 AM EST [facility] MCV 92.9 82.0 - 98.0 fL 06/27/2020 11:43 AM EST [facility] MCH 30.9 27.0 - 35.0 pg 06/27/2020 11:43 AM [facility] MCHC 33.3 32.0 - 37.0 g/dL 06/27/2020 11:43 AM [facility] RDW 14.5 12.0 - 15.0 % 06/27/2020 11:43 AM [facility] PLT 342 150 - 400 10*3/ L 06/27/2020 11:43 AM [facility] MPV 8.8 7.0 - 14.0 fL 06/27/2020 11:43 AM [facility] Neut % 70.4 45.0 - 85.0 % 06/27/2020 11:43 AM [facility] Lymph % 26.4 15.0 - 45.0 % 06/27/2020 11:43 AM [facility] [place]ers % 2.9 0.0 - 12.0 % 06/27/2020 11:43 AM [facility] Eos % 0.0 0.0 - 7.0 % 06/27/2020 11:43 AM [facility] Baso % 0.3 0.0 - 3.0 % 06/27/2020 11:43 AM [facility] NRBC% 0 0 /100 WBC /100 WBC 06/27/2020 11:43 AM [facility] Neut # 5.6 2.2 - 9.5 10*3/ L 06/27/2020 11:43 AM [facility] Lym # 2.1 0.7 - 5.0 10*3/ L 06/27/2020 11:43 AM [facility] [place] # 0.2 0.0 - 1.3 10*3/ L 06/27/2020 11:43 AM [facility] Eos # 0.0 0.0 - 0.4 10*3/ L 06/27/2020 11:43 AM [facility] Baso # 0.0 0.0 - 0.3 10*3/ L 06/27/2020 11:43 AM [facility] Blood specimen (specimen) Venipuncture / Unknown 06/27/2020 9:00 AM EST 06/27/2020 11:27 AM EST Gely Greene MD LAB BLOOD ORDERABLES Final Re sult Performing Organization Address [facility] Co de Phone Number [facility] [address] [place] [address] * Procalcitonin Test (06/27/2020 9:00 AM EST) Procalcitonin <0.04 0.00-<0.05 ng/mL 06/27/2020 2:02 PM EST [facility] Blood specimen (specimen) Venipuncture / Unknown 06/27/2020 9:00 AM EST 06/27/2020 11:26 AM EST Narrative [facility] - 06/27/2020 2:02 PM EST Levels < 0.50 ng/ml Low risk of [...] likelihood of severe sepsis or septic shock. Gely Greene MD LAB BLOOD ORDERABLES Final Re sult Performing Organization Address [facility] de Phone Number [facility] [address] [place] [address] * Sputum Culture & Gram Stain (06/27/2020) Culture Few Usual Bridget SUSCEPTIBIL ITY TESTING 06/29/2020 6:47 AM EST [facility] Gram Stain Result > 25 WBC per low power field 06/29/2020 6:47 AM EST [facility] Gram Stain Result 10 - 25 Epithelial cells per low power field 06/29/2020 6:47 AM EST [facility] Gram Stain Result Many Gram positive cocci in pairs, chains and clusters 06/29/2020 6:47 AM EST [facility] Gram Stain Result Moderate Gram positive bacilli 06/29/2020 6:[address] [facility] Gram Stain Result Moderate Yeast 06/29/2020 6:47 AM EST [facility] Sputum specimen (specimen) Collection / Unknown 06/27/2020 06/27/2020 1:02 PM EST Gely Greene MD MICROBIOLOGY - GENERAL ORDERA BLES Final Result [facility] [address] [place] [address] documented in this encounter Visit Diagnoses Diagnosis Fever, unspecified Cough documented in this encounter Additional Health Concerns Infection Onset Date Last Indicated Resolved Time PUI COVID 06/24/2020 06/24/2020 06/25/2020 11:4 7 PM EST PUI COVID 08/28/2023 08/28/2023 08/28/2023 5:43 PM EST documented as of this encounter Care Teams Animal Ecologist Relationship Specialty Start Date End Date Ammon Villagomez MD [address] [place] [address] PCP - General 04/23/14 07/09/22 Gely Greene MD [address] [place] [address] PCP - General Internal Medicine 07/10/22 Shania Reyes MD [address] [place] [address] [place] [address] Physician Hematology and Oncology 08/19/18 documented as of this encounter
--- OUTSIDE RECORDS SUMMARY | 2025-06-05 19:46 | XMS_ITS | Encounter Summary ---
Author Organization [facility] Address [address] [place] [address] Care Team Providers Care Metal Neutralizer Name Role Phone Ammon Villagomez MD Primary Care Provider Shania Reyes MD Unavailable Gely Greene MD Primary Care Provider [phone] Encounter Details Date Type Department Care Team (Late st Contact Info) Description 10/06/2020 Procedure Pass [facility] - [address] [id number] Social History Tobacco Use Types [...] documented as of this encounter Care Teams Metal Neutralizer Relationship Specialty Start Date End Date Ammon Villagomez MD [address] [place] [address] PCP - General 04/23/14 07/09/22 Gely Greene MD [address] [place] [address] [address] [place] [address] PCP - General Internal Medicine 07/10/22 Shania Reyes MD [address] [place] [address] [place] [address] Physician Hematology and Oncology 08/19/18 documented as of this encounter
--- OUTSIDE RECORDS SUMMARY | 2025-06-05 19:46 | XMS_ITS | Encounter Summary ---
Author Organization [facility] Address [address] [place] [address] Care Team Providers Care Feller Seam Operator Name Role Phone Ammon Villagomez MD Primary Care Provider Colin Hoskins MD Unavailable [phone] Shania Reyes MD Unavailable Gely Greene MD Primary Care Provider Encounter Details Date Type Department Care Team (Late st Contact Info) Description 2017 Procedure Pass [facility] - [address] [id number] Social History Tobacco Use Types [...] - Inhaled Oxygen Concentration - - Weight 87.5 kg (193 lb) 2017 8:20 PM EDT Height 157.5 cm (5' 2 ) 2017 8:20 PM EDT Body Mass Index 35.3 2017 8:20 PM EDT documented in this encounter Plan [...] documented as of this encounter Care Teams Feller Seam Operator Relationship Specialty Start Date End Date Ammon Villagomez MD [address] [place] [address] PCP - General 04/23/14 07/09/22 Colin Hoskins MD [address] [place] [address] PCP - Hematology/Oncology Hematology and Oncology 11/18/17 09/11/18 Gely Greene MD [address] [place] [address] PCP - General Internal Medicine 07/10/22 Shania Reyes MD [address] [place] [address] [place] [address] Physician Hematology and Oncology 08/19/18 documented as of this encounter
--- OUTSIDE RECORDS SUMMARY | 2025-06-05 19:46 | XMS_ITS | Encounter Summary ---
Author Organization [facility] Address [address] [place] [address] Care Team Providers Care Varnishing Unit Operator Name Role Phone Ammon Villagomez MD Primary Care Provider [phone] Shania Reyes MD Unavailable Gely Greene MD Primary Care Provider [phone] Encounter Details Date Type Department Care Team (Late st Contact Info) Description 09/21/2020 Procedure Pass [facility] - [address] [address] Social History Tobacco Use [...] documented as of this encounter Care Teams Varnishing Unit Operator Relationship Specialty Start Date End Date Ammon Villagomez MD [address] [place] [address] PCP - General 04/23/14 07/09/22 Gely Greene MD [address] [place] [address] [place] [address] PCP - General Internal Medicine 07/10/22 Shania Reyes MD [address] [place] [address] [place] [address] Physician Hematology and Oncology 08/19/18 documented as of this encounter
--- OUTSIDE RECORDS SUMMARY | 2025-06-05 19:46 | XMS_ITS | Encounter Summary ---
Author Organization [facility] Address [address] [place] [address] Care Team Providers Care Gunsmith Apprentice Name Role Phone Ammon Villagomez MD Primary Care Provider Colin Hoskins MD Unavailable [phone] Shania Reyes MD Unavailable Gely Greene MD Primary Care Provider [phone] Reason for Referral * Diagnostic (Routine) - Closed Specialty Diagnoses / Procedures Referred By Contac t Referred To Contact Cardiology Diagnoses Sinus bradycardia Procedures Cardiac echo complete Gely Greene MD [address] [address] Phone: tel: fax: [facility] [address], [address] [address] Phone: tel: fax: Referral ID Status Reason Start Date Expiration Date Visits Re quested Visits Authorized [id number] Closed 04/25/2017 06/09/2017 1 1 Encounter Details Date Type Department Care Team (Late st Contact Info) Description 04/19/2017 Ancillary Orders [facility] - [address] [address] Gely Greene MD [address] [place] [address] [address] [place] [address] Sinus bradycardia (Primary Dx) Social History Tobacco Use Types [...] this encounter Results * CARDIAC ECHO COMPLETE (05/06/2017 11:47 AM EDT) LVIDD 3.97 3.5 - 6.0 cm [facility] LVIDS 2.78 2.1 - 4.0 cm [facility] FS 30.03 28 - 44 % [facility] EF % [facility] IVS 0.96 0.6 - 1.1 cm [facility] PW 1.04 0.6 - 1.1 cm [facility] LA Size 3.57 cm [facility] LA Volume 64.68 mL [facility] Sinus Diameter 3 cm [facility] Prox Asc Aorta 2.93 cm [facility] IVC Proximal 1.98 cm [facility] LVOT Diam 1.83 cm [facility] LVOT Area cm2 [facility] LVOT Pk Janusz 1.38 m/s [facility] LVOT VTI 26.62 cm [facility] LVOT SV 69.6 ml [facility] AV Pk Janusz 1.54 m/s [facility] Velocity Ratio (DI) [facility] AV VTI 30.28 cm [facility] AV VTI Ratio [facility] TERRA VTI 2.3 cm2 [facility] AV Mn Grad 4.99 mmHg [facility] AV Pk Grad 9.49 mmHg [facility] LVOT Pk Grad 7.59 mmHg [facility] MV Pk E Janusz 0.72 m/s [facility] PV Pk Grad 5.12 mmHg [facility] PV pk janusz 1.13 m/s [facility] E/A Ratio 0.89 [facility] MV Decel Time 205.26 msec [facility] MV Pk A Janusz 0.81 m/s [facility] GLS % [facility] EF - Mod Simpsons % [facility] LV Mass g [facility] LV Mass Ind g/m2 [facility] TDI e' 0.12 m/s [facility] E/E' ratio [facility] E/E' Ratio 6.21 [facility] IVRT msec [facility] MV A Dur msec [facility] Pulm Vein Pk S Janusz m/s [facility]ING Pulm Vein Pk D Janusz m/s [facility] Pulm vein S/D Ratio [facility] Pulm Vein AR Dur msec [facility] LVOT Pk Grad Vals mmHg [facility] Qp:Qs ratio [facility] RVOT SV cm3 [facility] VSD Pk Janusz cm/s [facility] VSD Pk Grad mmHg [facility] RV AP4 Base 2.7 cm [facility] TAPSE 1.90 cm [facility] RV AP4 Mid 1.9 cm [facility] RV S' Janusz 0.15 m/s [facility] RV PLAX cm [facility] RV Wall Thickness cm [facility] RV AP4 Longitudinal cm [facility] BSA 1.9 m2 [facility] Sinus Diameter - Index cm/m2 [facility] Prox Asc Aorta - Index cm/m2 [facility] TERRA Index cm2/m2 [facility] LVOT SVI ml/m2 [facility] LA Vol Ind 34.04 mL/m2 [facility] RA Area 11.9 cm2 [facility] Est. RAP 3.00 mmHg [facility] TERRA Plan cm2 [facility] LVOT Pk Janusz Vals m/s [facility] AI P1/2 ms [facility] AI Vena Cont cm [facility] AV Reg Vol [facility] AV Reg Frac [facility] MV Pk Janusz m/s [facility] MV Pk Grad mmHg [facility] MV Mn Grad mmHg [facility] MV P1/2 ms [facility] MVA P1/2 cm2 [facility] MV VTI cm [facility] Area - cont eq cm2 [facility] MVA Plan cm2 [facility] MR Vena Cont cm [facility] MR Max Janusz m/s [facility] MV Annular Diam cm [facility] MV Annular Area cm2 [facility] MV Reg Vol [facility] MV Reg Frac [facility] PASP 28.00 mmHg [facility] Vnyquist PISA-MR m/s [facility] Radius PISA-MR cm [facility] EROA cm2 [facility] TV Pk Janusz m/s [facility] TV Pk Grad mmHg [facility] TV Mn Grad mmHg [facility] TV VTI cm [facility] Area - cont eq cm2 [facility] TV P1/2 ms [facility] TVA P1/2 cm2 [facility] TR max janusz - rest m/s [facility] TR Pk Grad mmHg [facility] TR Vena Cont cm [facility] TV Reg Vol cc [facility] TV Reg Frac [facility] Vnyquist - PISA m/s [facility] Radius - PISA cm [facility] PISA EROA cm2 [facility] PV VTI cm [facility] Valve area cm2 [facility] PV Mn Grad mmHg [facility]ING RVOT pk janusz m/s [facility] RVOT VTI cm [facility] RVOT diam cm [facility] RVOT area cm2 [facility] Ao Annulus cm [facility] STJ cm [facility] Mid Asc Aorta cm [facility]ING Aortic Arch cm [facility] Coarct peak janusz cm/s [facility] Coarct Pk Grad mmHg [facility] Anatomical Region Laterality Modality Heart (Echo) Ultrasound Narrative 05/08/2017 11:11 PM EDT Left Ventricle: Normal cavity size and wall thickness. Normal (60-65%) ejection fraction. No regional wall motion abnormalities noted. Normal diastolic function. Right Ventricle: Normal cavity size and systolic function. Aortic Valve: Normal valve structure. No regurgitation noted. No stenosis noted. Mitral Valve: Normal valve structure. Mild regurgitation. No stenosis noted. Tricuspid Valve: Normal valve structure. Mild regurgitation noted. Estimated pulmonary [...] regurgitation. No stenosis noted. Tricuspid Valve Normal valve structure. Mild regurgitation noted. Estimated pulmonary artery pressure is normal. No stenosis noted. Aortic Valve Normal valve structure. No regurgitation noted. No stenosis noted. Pulmonic Valve Normal valve structure. Trace regurgitation noted. No stenosis noted. The pulmonary artery was not well visualized. Pericardium No pericardial effusion. Aorta Normal aortic root and proximal ascending aorta size. General Study Information Technologist-entered indication(s): Bradycardia, Chest Pain, COPD Image quality: Good. Cardiac rhythm observed: Sinus tachycardia.Previous study date: 05/11/2016 Wall Scoring Score Index: 1.000 Percent Normal: 100.0% The left ventricular wall motion is normal. us Gely Greene MD CV ECHO ORDERABLES Final Resu lt documented in this encounter Visit Diagnoses Diagnosis Sinus bradycardia- Primary Other specified cardiac dysrhythmias Sinus bradycardia Other specified cardiac dysrhythmias documented in this encounter Additional Health Concerns Infection Onset Date Last Indicated Resolved Time PUI COVID 05/24/2020 05/24/2020 05/25/2020 11:4 6 PM EDT PUI COVID 06/24/2020 06/24/2020 06/25/2020 11:4 7 PM EST PUI COVID 08/28/2023 08/28/2023 08/28/2023 5:43 PM EST documented as of this encounter Care Teams Gunsmith Apprentice Relationship Specialty Start Date End Date Ammon Villagomez MD [address] [place] [address] PCP - General 04/23/14 07/09/22 Colin Hoskins MD [address] [place] [address] PCP - Hematology/Oncology Hematology and Oncology 11/18/17 09/11/18 Gely Greene MD [address] [place] [address] PCP - General Internal Medicine 07/10/22 Shania Reyes MD [address] [place] [address] [place] [address] Physician Hematology and Oncology 08/19/18 documented as of this encounter
--- OUTSIDE RECORDS SUMMARY | 2025-06-05 19:46 | XMS_ITS | Encounter Summary ---
Author Organization [facility] Address [address] [place] [address] Care Team Providers Care Military Cook Name Role Phone Ammon Villagomez MD Primary Care Provider Shania Reyes MD Unavailable Gely Greene MD Primary Care Provider [phone] Encounter Details Date Type Department Care Team (Late st Contact Info) Description 08/15/2021 Ancillary Orders [facility] - [address] [address] Ammon Villagomez MD [address] [place] [place] [id number] Breast screening Social History Tobacco Use Types Packs/Day Years [...] as of this encounter Visit Diagnoses Diagnosis Breast screening Breast screening, unspecified documented in this encounter Additional Health Concerns Infection Onset Date Last Indicated Resolved Time PUI COVID 08/28/2023 08/28/2023 08/28/2023 5:43 PM EST documented as of this encounter Care Teams Military Cook Relationship Specialty Start Date End Date Ammon Villagomez MD [address] [place] [address] PCP - General 04/23/14 07/09/22 Gely Greene MD [address] [facility] [place] [address] PCP - General Internal Medicine 07/10/22 Shania Reeys MD [address] [place] [address] - [place] [address] Physician Hematology and Oncology 08/19/18 documented as of this encounter
--- OUTSIDE RECORDS SUMMARY | 2025-06-05 19:46 | XMS_ITS | Encounter Summary ---
Author Organization [facility] Address [address] [place] [address] Care Team Providers Care Dry Kiln Operator Helper Name Role Phone Ammon Villagomez MD Primary Care Provider Shania Reyes MD Unavailable Gely Greene MD Primary Care Provider [phone] Reason for Visit * Reason Comments Medication Refill Encounter Details Date Type Department Care Team (Late st Contact Info) Description 12/27/2020 Refill [facility] [address] [place] [address] Shania Reyes MD [address] [place] [address] Cancer [facility] [place], [place] [id number] Social History Tobacco Use Types Packs/Day Years [...] documented as of this encounter Care Teams Dry Kiln Operator Helper Relationship Specialty Start Date End Date Ammon Villagomez MD [address] [place] [address] PCP - General 04/23/14 07/09/22 Gely Greene MD [address] [facility] [address] PCP - General Internal Medicine 07/10/22 Shania Reyes MD [address] [place] [address] [place] [address] Physician Hematology and Oncology 08/19/18 documented as of this encounter
--- OUTSIDE RECORDS SUMMARY | 2025-06-05 19:46 | XMS_ITS | Encounter Summary ---
Author Organization [facility] Address [address] [place] [address] Care Team Providers Care Climatology Professor Name Role Phone Ammon Villagomez MD Primary Care Provider Shania Reyes MD Unavailable Gely Greene MD Primary Care Provider [phone] Encounter Details Date Type Department Care Team (Late st Contact Info) Description 11/29/2020 Procedure Pass [facility] - [address] [address] Social History Tobacco Use Types [...] documented as of this encounter Care Teams Climatology Professor Relationship Specialty Start Date End Date Ammon Villagomez MD [address] [place] [address] PCP - General 04/23/14 07/09/22 Gely Greene MD [address] [place] [address] [place] [address] PCP - General Internal Medicine 07/10/22 Shania Reyes MD [address] [place] [address] [place] [address] Physician Hematology and Oncology 08/19/18 documented as of this encounter
--- OUTSIDE RECORDS SUMMARY | 2025-06-05 19:46 | XMS_ITS | Encounter Summary ---
Author Organization [facility] Address [address] [place] [address] Care Team Providers Care Municipal Firefighter Name Role Phone Ammon Villagomez MD Primary Care Provider Shania Reyes MD Unavailable Gely Greene MD Primary Care Provider [phone] Reason for Referral * Diagnostic Imaging (Routine) - Closed Specialty Diagnoses / Procedures Referred By Contzain wu Referred To Contact Radiology Diagnoses Cough Right knee pain Procedures X-ray chest 2 views Gely Greene MD [address] [place] [address] Phone: tel: fax: Referral ID Status Reason Start Date Expiration Date Visits Re quested Visits Authorized [id number] Closed 11/08/2020 02/07/2022 1 1 Encounter Details Date Type Department Care Team (Late st Contact Info) Description 11/08/2020 Ancillary Orders [facility] - [address] [address] Gely Greene MD [address] [place] [address] Cough; Right knee pain Social History Tobacco [...] encounter Results * X-ray chest 2 views (11/08/2020 12:16 PM EDT) Anatomical Region Laterality Modality Chest, Ortho Chest Digital Radio graphy 11/08/2020 2:24 PM EDT Impressions 11/08/2020 2:27 [...] effusion. IMPRESSION: No displaced fracture or malalignment. Gely Greene MD IMG DIAGNOSTIC IMAGING ORDERA [...] documented as of this encounter Care Teams Municipal Firefighter Relationship Specialty Start Date End Date Ammon Villagomez MD [address] [place] [address] PCP - General 04/23/14 07/09/22 Gely Greene MD [address] [place] [address] PCP - General Internal Medicine 07/10/22 Shania Reyes MD [address] [place] [address] [place] [address] Physician Hematology and Oncology 08/19/18 documented as of this encounter
--- OUTSIDE RECORDS SUMMARY | 2025-06-05 19:46 | XMS_ITS | Encounter Summary ---
Author Organization [facility] Address [address] [place] [address] Care Team Providers Care Aquatics Assistant Department Head Name Role Phone Ammon Villagomez MD Primary Care Provider [phone] Shania Reyes MD Unavailable Gely Greene MD Primary Care Provider [phone] Reason for Referral * MRI/CAT/PET Scan (Routine) - Closed Specialty Diagnoses / Procedures Referred By Contac t Referred To Contact Radiology Diagnoses Infection associated with internal knee prosthesis Procedures MRI knee right without contrast MRI knee right with contrast Gely Greene MD [address] [place] [address] Phone: tel: fax: [address] [address] Phone: tel: fax: Referral ID Status Reason Start Date Expiration Date Visits Re quested Visits Authorized [id number] Closed 10/06/2020 01/06/2022 1 1 Encounter Details Date Type Department Care Team (Late st Contact Info) Description 11/08/2020 Ancillary Orders [address] [address] Gely Greene MD [address] [facility] [place] [address] 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 Narrative 11/08/2020 3:58 PM EDT Examination: MRI of the right knee. Clinical History: Right knee pain for three weeks. Technique: MRI of the right knee was performed utilizing multiecho, multiplanar sequences without intravenous contrast. Comparison: Radiographs of the right knee from 11/08/2020. Findings: Patient is status post total right knee arthroplasty revision. Normal marrow signal within the visualized osseous structures is preserved. Alignment is within normal limits. No periarticular fluid collections are identified. The extensor mechanism is normal in appearance. The visualized musculature maintains normal signal and bulk. Procedure Note Jermain Boyle MD - 11/08/2020 Examination: MRI of the right knee. Clinical History: Right knee pain for three weeks. Technique: MRI of the right knee was performed utilizing multiecho,multiplanar sequences without intravenous contrast. Comparison: Radiographs of the right knee from 11/08/2020. Findings: Patient is status post total right knee arthroplasty revision. Normalmarrow signal within the visualized osseous structures is preserved. Alignment is within normal limits. No periarticular fluid collections areidentified. The extensor mechanism is normal in appearance. The visualizedmusculature maintains normal signal and bulk. IMPRESSION: Unremarkable MRI evaluation of the right knee status post total kneearthroplasty revision. 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 [address] Physician Hematology and Oncology 08/19/18 documented as of this encounter
--- OUTSIDE RECORDS SUMMARY | 2025-06-05 19:46 | XMS_ITS | Encounter Summary ---
Author Organization [facility] Address [address] [place] [address] Care Team Providers Care Lead Ios Developer Name Role Phone Ammon Villagomez MD Primary Care Provider [phone] Shania Reyes MD Unavailable Gely Greene MD Primary Care Provider [phone] Encounter Details Date Type Department Care Team (Late st Contact Info) Description 10/06/2020 Procedure Pass [facility] - [address] [address] Social History Tobacco Use Types [...] documented as of this encounter Care Teams Lead Ios Developer Relationship Specialty Start Date End Date Ammon Villagomez MD [address] [place] [address] PCP - General 04/23/14 07/09/22 Gely Greene MD [address] [place] [address] [address] [place] [address] PCP - General Internal Medicine 07/10/22 Shania Reyes MD [address] [place] [address] [place] [address] Physician Hematology and Oncology 08/19/18 documented as of this encounter
[2025-06-05 19:55] VITALS: BP 139/75; PULSE 88; RESP 20; TEMP 36.6; O2SAT 95
[2025-06-05 22:14] VITALS: BMI 32.4
--- NOTE | 2025-06-05 23:04 | PC.ADMIT ---
Addendum entered by Refugio Valenzuela RN 06/06/25 00:35: patient on a 12b Original Note: on 06/05/25 t 195 patient arrived on a stretcher, she was A&O(4), made good eye contact, was pleasant, hyperverbal and tangential, scar over right knee, skin otherwise clear, was walking with slightly impaired but steady gait, may need second opinion from pt/ot, reports to be a former smoker and infrequent temperate drinker, patient presents from [facility], she said she originally went to hospital with complaint of pain and that she was misunderstood when she was answering questions about how she felt about the loss of her 2 sons and her mother. she states she does not wish to be or harm herself, she wishes things were different/better. patient contracts for safety, Psych HX MDD, Medical: COPD, Hyperlipidemia, S/P Right Knee Replacement, Allergies: Tylenol, Oxycodone, Pregabalin, Varenicline.
[2025-06-06 08:00] VITALS: BP 114/81; PULSE 87; RESP 18; TEMP 36.7; O2SAT 95
[2025-06-06] MEDS: Venlafaxine HCl ER 150 MG CAP.ER.24H PO (08:17)
[2025-06-06] MEDS: Aspirin Enteric Coated 81 MG TABLET.DR PO (08:17)
[2025-06-06] MEDS: Calcium + Vitamin D 250 MG TABLET PO (08:18)
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
[2025-06-06 08:42] LABS: Alanine Aminotransferase 17 U/L (0-31); Albumin Level 4.3 g/dL (3.5-5.0); Alkaline Phosphatase 80 U/L (39-117); Anion Gap 13 (12-20); Aspartate Amino Transferase 21 U/L (5-31); Blood Urea Nitrogen 16 mg/dL (9-16); Calcium 9.0 mg/dL (8.4-10.2); Carbon Dioxide 25 mmol/L (22-29); Chloride 107 mmol/L (96-108); Creatinine Clr Calc Pharmacy 80.8; Estimated Glomerular Filt Rate > 60; Potassium 4.0 mmol/L (3.3-5.1); Sodium 141 mmol/L (135-145); Total Protein 6.9 g/dL (6.5-8.0)
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
[2025-06-06 20:00] VITALS: BP 126/58; PULSE 84; RESP 16; TEMP 36.7; O2SAT 95
[2025-06-07 08:05] VITALS: BP 119/58; PULSE 91; RESP 16; TEMP 36.8; O2SAT 95
[2025-06-07] MEDS: Calcium + Vitamin D 250 MG TABLET PO (08:54)
[2025-06-07] MEDS: Venlafaxine HCl ER 150 MG CAP.ER.24H PO (08:54)
[2025-06-07] MEDS: Aspirin Enteric Coated 81 MG TABLET.DR PO (08:55)
[2025-06-07] MEDS: Flu Vacc TS2025-26(6mo up)/PF 0.5 ML SYRINGE IM (11:31)
--- NOTE | 2025-06-07 12:35 | HO.PSYCHPN ---
Subjective Subjective Date of Service: 06/07/25 Reason For Visit: SI Subjective Notes: Section 12B Interim History: Pt sleeping through the night. She presents with expansive mood, hyperverbal and labile. She reports the SW at other hospital was uptight and that she never had the intent or plan to end her life. She reports she reported suicidal thoughts in context of frustration, because she was looking to see her emt intermediate PCP who was also in the hospital. She is currently on effexor- denies hx of bipolar disorder. She reports she was started on effexor after son . She denies prior psych admission. She denies any concerns in terms of her mood. She reports her main concern is sweating at night. No psychosis or delusions. Pt has been intrusive to peers, attempting to hug and kiss others. Loud at times. Goes from praising staff to accusing them of mistreatment. No aggression and overall is able to be redirected. She is not open to try different medications. Her significant other who has known pt for the past 3 years, denies any concerns reports she is just a nice person, very warm. denies any safety concerns. Review of Systems Review of Systems Yes all other systems are reviewed and are negative Cardiovascular: Denies chest pain and Denies dyspnea Respiratory: Denies cough and Denies dyspnea Mental Status Exam Mental Status Exam Narrative: Appearance: wearing hospital gown, fair hygiene, in NAD Behavior: overly friendly poor boundaries attempting to kiss and hug this com writer multiple times, needs redirection Psychomotor: hyperactivity Speech: hyperverbal, pressured at times, spontaneous TP: flight of ideas TC: upset about being Mood: good Affect: labile SI: denies HI: denies VH/AH: none Delusions: none Insight/judgment: impaired x 2. Memory/cog: alert, oriented x 3 Diagnostics Vital Signs (24Hr): Vital Signs - 24 hr 06/06/25 20:00 06/07/25 08:05 Temperature 98.1 F 98.2 F Pulse Rate 84 91 Respiratory Rate 16 16 Blood Pressure 126/58 L 119/58 L Pulse Oximetry 95 95 Oxygen Delivery Method Room Air Room Air BMI result Body Mass Index 32.4 Labs 06/06/25 08:04 Labs: Laboratory Results - last 48 hr 06/06/25 08:04 Sodium 141 Potassium 4.0 Chloride 107 Carbon Dioxide 25 Anion Gap 13 BUN 16 Creatinine 0.60 Estim Creat Clear Calc 80.8 Estimated GFR > 60 Random Glucose 109 Calcium 9.0 Total Bilirubin 0.3 AST 21 ALT 17 Alkaline Phosphatase 80 Total Protein 6.9 Albumin 4.3 Medications Medications Current Medications Al Hydroxide/Mg Hydroxide (Magnesium Hydrox/Alum Hydrox 30 Ml Oral.Susp) 30 ml PO Q6H PRN PRN Reason: Heartburn/Nausea Albuterol Sulfate (Albuterol Sulfate 90 Mcg 8 Gm Inhaler) 1 puff INHALE RQ4H PRN PRN Reason: Shortness of Breath/Wheezing Aspirin (Aspirin Enteric Coated 81 Mg Tablet.Dr) 81 mg PO DAILY [facility] Last Admin: 06/07/25 08:55 Dose: 81 mg Calcium Carbonate/Cholecalciferol (Calcium + Vitamin D 250 Mg Tablet) 250 mg PO DAILY [facility] Last Admin: 06/07/25 08:54 Dose: 250 mg Gabapentin (Gabapentin 300 Mg Capsule) 300 mg PO BEDTIME [facility] Last Admin: 06/06/25 20:07 Dose: 300 mg Hydrocortisone (Hydrocortisone 10 Mg Tablet) 10 mg PO DAILY [facility] Last Admin: 06/07/25 08:55 Dose: 10 mg Hydroxyzine HCl (Hydroxyzine Hcl 25 Mg Tablet) 25 mg PO Q6H PRN PRN Reason: mild anxiety Ibuprofen (Ibuprofen 600 Mg Tablet) 600 mg PO Q8H PRN PRN Reason: Pain, Moderate(Pain Scale 4-6) Last Admin: 06/07/25 08:55 Dose: 600 mg Levothyroxine Sodium (Levothyroxine Sodium 25 Mcg Tablet) 25 mcg PO DAILY@0600 [facility] Last Admin: 06/07/25 05:34 Dose: 25 mcg Lorazepam (Lorazepam 0.5 Mg Tablet) 0.5 mg PO BID PRN PRN Reason: anxiety Magnesium Hydroxide (Milk Of Magnesia 30 Ml Oral.Susp) 30 ml PO DAILY PRN PRN Reason: Constipation Melatonin (Melatonin 3 Mg Tablet) 6 mg PO BEDTIME [facility] Last Admin: 06/06/25 20:07 Dose: 6 mg Nicotine Polacrilex (Nicotine Polacrilex 2 Mg Gum) 2 mg BUCCAL Q2H PRN PRN Reason: Nicotine Cravings Olanzapine (Olanzapine 2.5 Mg Tablet) 2.5 mg PO Q4H PRN PRN Reason: agitation Polyethylene Glycol (Polyethylene Glycol 3350 17 Gm Powd.Pack) 17 gm PO DAILY PRN PRN Reason: Constipation Trazodone HCl (Trazodone Hcl 50 Mg Tablet) 50 mg PO BEDTIME MRX1 PRN PRN Reason: Insomnia Last Admin: 06/06/25 21:22 Dose: 50 mg Venlafaxine HCl (Venlafaxine Hcl Er 150 Mg Cap.Er.24h) 150 mg PO DAILY [facility] Last Admin: 06/07/25 08:54 Dose: 150 mg Allergies Allergies Allergy/AdvReac Type Severity Reaction Status Date / Time acetaminophen Allergy Confusion Verified 06/05/25 21:13 oxycodone Allergy Unknown Verified 06/05/25 21:13 pregabalin Allergy Confusion Verified 06/05/25 21:13 varenicline Allergy Confusion Verified 06/05/25 21:13 Assessment & Plan Assessment & Plan (1) Mood disorder: Status: Acute Code(s): F39 - Unspecified mood [affective] disorder (2) History of posttraumatic stress disorder (PTSD): Status: Acute Code(s): Z86.59 - Personal history of other mental and behavioral disorders Plan Ms. Caldera is a 75 y/o partnered bilingual Slovenian F with h/o depression, SI, personality d/o, PTSD, COPD, HLD, hypothyroidism, adrenal insufficiency and colon cancer who was transferred from [facility] to [facility] dayo psych unit due to depression and SI. She declined to sign a CV since she doesn't want to be here and is admitted on a 12B. 06/07 pt presentation is consistent with hypomania- labile, racing thoughts, pressured, intrusive with peers. apparently, no prior psych hx. However, no safety concerns. I do not think she is suicidal, which she denies. Pending collateral information. on sect 12b, up 06/09. Reason for continued inpatient stay Substantial Risk for: inability to function Time Spent With Patient Time: Total time managing care of this patient today ____ minutes.
--- NOTE | 2025-06-07 18:47 | PC.NURSE ---
RN asked pt if she wanted to receive her Influenza Vaccine. Pt requested and received her Influenza Vaccine in the R deltoid.
[2025-06-07 20:00] VITALS: BP 142/92; PULSE 92; RESP 16; TEMP 36.3; O2SAT 97
[2025-06-08 08:00] VITALS: BP 130/64; PULSE 85; RESP 18; TEMP 36.7; O2SAT 94
[2025-06-08] MEDS: Venlafaxine HCl ER 150 MG CAP.ER.24H PO (08:20)
[2025-06-08] MEDS: Calcium + Vitamin D 250 MG TABLET PO (08:20)
[2025-06-08] MEDS: Aspirin Enteric Coated 81 MG TABLET.DR PO (08:27)
[2025-06-08 12:37] LABS: Free T4 (Free Thyroxine) 1.11 ng/dL (0.71-1.85)
[2025-06-08 19:44] VITALS: BP 132/78; PULSE 99; RESP 16; TEMP 37.1; O2SAT 94
--- NOTE | 2025-06-08 19:57 | P.PNPSI_ITS ---
Subjective Subjective Date of Service: 06/08/25 Reason For Visit: SI Subjective Notes: Section 12B Interim History: Pt sleeping. She continues to present with labile and expansive, intrusive, no aggression. No SI/HI. discussed lowering effexor but she declines. SHe is also not open to try different medications. Collateral info from significant other who denies any safety concerns, also denies concerns about her behavior. plan to dc at end of sect 12b. Mental Status Exam Mental Status Exam Narrative: Appearance: wearing hospital gown, fair hygiene, in NAD Behavior: overly friendly poor boundaries attempting to kiss and hug this show card writer multiple times, needs redirection Psychomotor: hyperactivity Speech: hyperverbal, pressured at times, spontaneous TP: flight of ideas TC: upset about being Mood: good Affect: labile SI: denies HI: denies VH/AH: none Delusions: none Insight/judgment: impaired x 2. Memory/cog: alert, oriented x 3 Diagnostics Vital Signs (24Hr): Vital Signs - 24 hr 06/07/25 20:00 06/08/25 08:00 06/08/25 19:44 Temperature 97.4 F 98.1 F 98.8 F Pulse Rate 92 85 99 Respiratory Rate 16 18 16 Blood Pressure 142/92 H 130/64 132/78 Pulse Oximetry 97 94 94 Oxygen Delivery Method Room Air Room Air Room Air BMI result Body Mass Index 32.4 Labs 06/06/25 08:04 Labs: Laboratory Results - last 48 hr 06/08/25 10:43 TSH 0.13 L Free T4 1.11 Medications Medications Current Medications Al Hydroxide/Mg Hydroxide (Magnesium Hydrox/Alum Hydrox 30 Ml Oral.Susp) 30 ml PO Q6H PRN PRN Reason: Heartburn/Nausea Albuterol Sulfate (Albuterol Sulfate 90 Mcg 8 Gm Inhaler) 1 puff INHALE RQ4H PRN PRN Reason: Shortness of Breath/Wheezing Aspirin (Aspirin Enteric Coated 81 Mg Tablet.) 81 mg PO DAILY [facility] Last Admin: 06/08/25 08:27 Dose: 81 mg Calcium Carbonate/Cholecalciferol (Calcium + Vitamin D 250 Mg Tablet) 250 mg PO DAILY [facility] Last Admin: 06/08/25 08:20 Dose: 250 mg Gabapentin (Gabapentin 300 Mg Capsule) 300 mg PO BEDTIME [facility] Last Admin: 06/07/25 20:13 Dose: 300 mg Hydrocortisone (Hydrocortisone 10 Mg Tablet) 10 mg PO DAILY [facility] Last Admin: 06/08/25 08:20 Dose: 10 mg Hydroxyzine HCl (Hydroxyzine Hcl 25 Mg Tablet) 25 mg PO Q6H PRN PRN Reason: mild anxiety Last Admin: 06/08/25 10:51 Dose: 25 mg Ibuprofen (Ibuprofen 600 Mg Tablet) 600 mg PO Q8H PRN PRN Reason: Pain, Moderate(Pain Scale 4-6) Last Admin: 06/08/25 17:12 Dose: 600 mg Levothyroxine Sodium (Levothyroxine Sodium 25 Mcg Tablet) 25 mcg PO DAILY@0600 [facility] Last Admin: 06/08/25 06:03 Dose: 25 mcg Lorazepam (Lorazepam 0.5 Mg Tablet) 0.5 mg PO BID PRN PRN Reason: anxiety Last Admin: 06/07/25 21:35 Dose: 0.5 mg Magnesium Hydroxide (Milk Of Magnesia 30 Ml Oral.Susp) 30 ml PO DAILY PRN PRN Reason: Constipation Melatonin (Melatonin 3 Mg Tablet) 6 mg PO BEDTIME [facility] Last Admin: 06/07/25 20:13 Dose: 6 mg Nicotine Polacrilex (Nicotine Polacrilex 2 Mg Gum) 2 mg BUCCAL Q2H PRN PRN Reason: Nicotine Cravings Olanzapine (Olanzapine 2.5 Mg Tablet) 2.5 mg PO Q4H PRN PRN Reason: agitation Last Admin: 06/07/25 21:35 Dose: 2.5 mg Polyethylene Glycol (Polyethylene Glycol 3350 17 Gm Powd.Pack) 17 gm PO DAILY PRN PRN Reason: Constipation Trazodone HCl (Trazodone Hcl 50 Mg Tablet) 50 mg PO BEDTIME MRX1 PRN PRN Reason: Insomnia Last Admin: 06/07/25 21:35 Dose: 50 mg Venlafaxine HCl (Venlafaxine Hcl Er 150 Mg Cap.Er.24h) 150 mg PO DAILY [facility] Last Admin: 06/08/25 08:20 Dose: 150 mg Allergies Allergies Allergy/AdvReac Type Severity Reaction Status Date / Time acetaminophen Allergy Confusion Verified 06/05/25 21:13 oxycodone Allergy Unknown Verified 06/05/25 21:13 pregabalin Allergy Confusion Verified 06/05/25 21:13 varenicline Allergy Confusion Verified 06/05/25 21:13 Assessment & Plan Assessment & Plan (1) Mood disorder: Status: Acute Code(s): F39 - Unspecified mood [affective] disorder Plan Ms. Caldera is a 75 y/o partnered bilingual Arabic F with h/o depression, SI, personality d/o, PTSD, COPD, HLD, hypothyroidism, adrenal insufficiency and colon cancer who was transferred from [facility] dayo psych unit due to depression and SI. She declined to sign a CV since she doesn't want to be here and is admitted on a 12B. 06/09 continue tx. plan to dc at end of sect 12b Reason for continued inpatient stay Substantial Risk for: inability to function Time Spent With Patient Time: Total time managing care of this patient today ____ minutes.
[2025-06-09 08:00] VITALS: BP 121/63; PULSE 88; RESP 17; TEMP 36.6; O2SAT 96
[2025-06-09] MEDS: Aspirin Enteric Coated 81 MG TABLET.DR PO (08:42)
[2025-06-09] MEDS: Venlafaxine HCl ER 150 MG CAP.ER.24H PO (08:42)
[2025-06-09] MEDS: Calcium + Vitamin D 250 MG TABLET PO (08:42)
--- NOTE | 2025-06-09 16:09 | PM.PSYDC ---
DS: Providers Provider Date of Service: 06/09/25 Date of admission: 06/05/25 19:36 Date of discharge: 06/09/25 Primary care physician: Ammon Villagomez MD Consults: 06/06/25 08:00 Consult to Hospitalist Routine Comment: [place]ing Provider[place] [facility] [place] Reason For Exam: Admission physical DS: Diagnosis Discharge Diagnosis (1) Mood disorder: Status: Acute (2) History of posttraumatic stress disorder (PTSD): Status: Acute DS: Medications Discharge Medications Home Medications: Home Medications ?Medication ?Instructions ?Recorded ?Confirmed aripiprazole 5 mg tablet (Abilify) 5 mg 06/05/25 Previous Rx's ?Medication ?Instructions ?Recorded albuterol sulfate 90 mcg/actuation 1 puff inhalation RQ4H PRN 06/09/25 aerosol inhaler (Ventolin HFA) Shortness Of Breath/Wheezing #0 grams aspirin 81 mg tablet,delayed 81 mg PO DAILY #0 tabs 06/09/25 release calcium 250 mg (as 1 tab PO DAILY #0 tabs 06/09/25 carbonate)-vitamin D3 3.125 mcg (125 unit) tablet gabapentin 300 mg capsule 300 mg PO BEDTIME #0 caps 06/09/25 hydrocortisone 10 mg tablet 10 mg PO DAILY #0 tabs 06/09/25 (Cortef) levothyroxine 25 mcg tablet 25 mcg PO DAILY@0600 #0 tabs 06/09/25 melatonin 3 mg tablet 6 mg (2 x 3 mg) PO BEDTIME #0 tabs 06/09/25 venlafaxine 150 mg 150 mg PO DAILY #0 caps 06/09/25 capsule,extended release 24 hr Mental Status Exam Mental Status Exam Narrative: Appearance: wearing hospital gown, fair hygiene, in NAD Behavior: overly friendly poor boundaries attempting to kiss and hug this property underwriter multiple times, needs redirection Psychomotor: hyperactivity Speech: hyperverbal, pressured at times, spontaneous TP: flight of ideas TC: upset about being Mood: good Affect: labile SI: denies HI: denies VH/AH: none Delusions: none Insight/judgment: impaired x 2. Memory/cog: alert, oriented x 3 Data Data Completed and Pending Completed studies during hospitalization [Text1]: 06/06/25 06/08/25 08:04 10:43 Sodium 141 Potassium 4.0 Chloride 107 Carbon Dioxide 25 Anion Gap 13 BUN 16 Creatinine 0.60 Estim Creat Clear Calc 80.8 Estimated GFR > 60 Random Glucose 109 Calcium 9.0 Total Bilirubin 0.3 AST 21 ALT 17 Alkaline Phosphatase 80 Total Protein 6.9 Albumin 4.3 TSH 0.13 L Free T4 1.11 DS: Summary Time Spent with Patient Time attestation: Total time managing care of this patient today ____ minutes. Discharge Plan Discharge Anticipated Discharge Date/Time: 06/09/25 16:01 Patient Disposition: Home, Self-Care Discharge Diagnosis: Mood disorder Referrals: Ammon Villagomez MD [Primary Care Provider, Internal Medicine] - 06/16/25 3:00 pm Referral Note: Discharge Medications: New venlafaxine 150 mg Capsule,Extended Release 24hr 150 mg PO DAILY Qty: 0 0RF melatonin 3 mg Tablet 6 mg PO BEDTIME Qty: 0 0RF aspirin 81 mg Tablet,Delayed Release (Dr/Ec) 81 mg PO DAILY Qty: 0 0RF levothyroxine 25 mcg Tablet 25 mcg PO DAILY@0600 Qty: 0 0RF gabapentin 300 mg Capsule 300 mg PO BEDTIME Qty: 0 0RF hydrocortisone [Cortef] 10 mg Tablet 10 mg PO DAILY Qty: 0 0RF albuterol sulfate [Ventolin HFA] 90 mcg/actuation Hfa Aerosol Inhaler 1 puff inhalation RQ4H PRN (Reason: Shortness Of Breath/Wheezing) Qty: 0 0RF calcium carbonate-vitamin D3 250 mg-3.125 mcg (125 unit) Tablet 1 tab PO DAILY Qty: 0 0RF Continued aripiprazole [Abilify] 5 mg Tablet 5 mg Patient Comments: patient not taking Rx Instructions: patient not taking Discontinued clonidine HCl 0.1 mg tablet 0.1 mg PO DAILY Patient Comments: patient not taking Rx Instructions: patient not taking lorazepam 0.5 mg Tablet 0.5 mg PO BID PRN (Reason: Anxiety) Patient Comments: patient not taking Rx Instructions: patient not taking gabapentin 300 mg Tablet 300 mg PO TID Patient Comments: patient not taking Rx Instructions: patient not taking metoprolol succinate tablet 25 mg PO Patient Comments: patient not taking Rx Instructions: patient not taking Discharge Orders: Discharge Order (Routine); Ordered 06/09/25 Ordered By: Isabel Barron Diet: Regular diet Activity on Discharge: As tolerated Stand Alone Forms: Patient Portal Discharge page Print Language: Italian Care Plan Goals: no aggression towards self or others no SI/HI Health Concerns: Follow up with PCP Plan of Treatment: go to nearest ED or call 911 in event of emergency Assessment: Pt with expansive mood, poor boundaries, intrusive at times. No SI/HI. No psychosis or delusions. Sleeping. No aggression towards self or others.
== END 2025-06-09 16:25 | disposition home or self-care (01) | DRG 881 ==
PROVIDERS: Social Worker; Admitting Provider Psychiatry & Neurology Psychiatry; PCP Internal Medicine; Visit Provider Psychiatry & Neurology Psychiatry
DX: F32.9 Major depressive disorder, single episode, unspecified (principal); E27.40 Unspecified adrenocortical insufficiency; R45.851 Suicidal ideations; E03.9 Hypothyroidism, unspecified; J44.9 Chronic obstructive pulmonary disease, unspecified; Z23 Encounter for immunization; Z87.891 Personal history of nicotine dependence; Z79.82 Long term (current) use of aspirin; Z79.890 Hormone replacement therapy; Z79.899 Other long term (current) drug therapy
CPT/HCPCS: 36415; 80053; 84439; 84443; 90656

== ENCOUNTER → 2025-06-05 19:36 | Outpatient (BNV) | payer MEDICARE, SELFPAY | PROVIDERS: Admitting Provider Psychiatry & Neurology Psychiatry; Visit Provider Physician Assistant Medical | DX: Z00.8 Encounter for other general examination (principal) | CPT/HCPCS: 99221 ==

== ENCOUNTER → 2025-06-05 19:36 | Outpatient (BNV) | payer MEDICARE, SELFPAY | PROVIDERS: Admitting Provider Psychiatry & Neurology Psychiatry; Visit Provider Psychiatry & Neurology Psychiatry | DX: F39 Unspecified mood [affective] disorder (principal); Z86.59 Personal history of other mental and behavioral disorders | CPT/HCPCS: 90792; 99231; 99232 ==